=== PATIENT | female | born 1980 ===

== ENCOUNTER 2017-02-09 18:12 | Inpatient (IN) | payer MEDICAID, OTHER ==
--- NOTE | 2017-02-09 19:40 | ED PDOC ---
Arrival/HPI - General Chief Complaint: Altered Mental Status Time Seen by Provider: 02/09/17 18:23 Historian: Family - History of Present Illness Narrative History of Present Illness (Text): 02/09/17 19:44 A 36 year old female, morbidly obese, whose past medical history includes diabetes, presents to the emergency department complaining of coughing blood since yesterday. Patient's family reports she has been coughing up clots of blood, abdominal pain, discomfort under breast, and has some visual changes. Patient has a history of abdominal surgery 5 years ago. Family reports patient has been less verbal and pale since last night. Patient is uncooperative, not verbal when answering questions, with eyes closed. Patient is a smoker. PMD: Dr. Shine Time/Duration: 24 hours Symptom Onset: Sudden Symptom Course: Unchanged Activities at Onset: Rest Context: Home Past Medical History - Provider Review Nursing Documentation Reviewed: Yes - Infectious Disease Hx of Infectious Diseases: None - Tetanus Immunization Tetanus Immunization: Unknown - Reproductive Menopause: No - Cardiac Hx Cardiac Disorders: Yes Hx Hypertension: Yes - Pulmonary Hx Respiratory Disorders: No - Neurological Hx Neurological Disorder: No - HEENT Hx HEENT Disorder: No - Renal Hx Renal Disorder: No - Endocrine/Metabolic Hx Endocrine Disorders: No - Hematological/Oncological Hx Blood Disorders: Yes - Integumentary Hx Dermatological Disorder: No - Musculoskeletal/Rheumatological Hx Musculoskeletal Disorders: No - Gastrointestinal Hx Gastrointestinal Disorders: No - Genitourinary/Gynecological Hx Genitourinary Disorders: No - Psychiatric Hx Psychophysiologic Disorder: Yes Hx Bipolar Disorder: Yes Hx Depression: Yes Hx Substance Use: Yes - Surgical History Hx Section: Yes - Anesthesia Hx Anesthesia: Yes Hx Anesthesia Reactions: No Hx Malignant Hyperthermia: No - Suicidal Assessment Feels Threatened In Home Enviroment: No Family/Social History - Physician Review Nursing Documentation Reviewed: Yes Family/Social History: No Known Family HX Smoking Status: Heavy Smoker > 10 Cigarettes Daily Hx Alcohol Use: No Hx Substance Use: Yes Substance used: snorts heroin Hx Substance Use Treatment: Yes (methodone) Allergies/Home Meds Allergies/Adverse Reactions: Allergies No Known Allergies Allergy (Verified 09/04/15 14:54) Home Medications: Home Meds Medication Instructions Recorded Confirmed Ritonavir [Norvir] 100 mg PO DAILY 10/07/14 02/09/17 Amitriptyline [Elavil] 150 mg PO HS 08/17/15 02/09/17 ALPRAZolam [Xanax] 1 mg PO TID 02/09/17 02/09/17 ALPRAZolam [Xanax] 1.5 mg PO HS 02/09/17 02/09/17 Amitriptyline [Elavil] 50 mg PO DAILY 02/09/17 02/09/17 Darunavir [Prezista] 800 mg PO DAILY 02/09/17 02/09/17 Dolutegravir Sodium [Tivicay] 50 mg PO DAILY 02/09/17 02/09/17 Emtricitabine/Tenofov Alafenam 1 each PO DAILY 02/09/17 02/09/17 [Descovy 200-25 mg Tablet] Methadone [Methadose] 80 mg PO DAILY 02/09/17 02/09/17 Review of Systems - Physician Review All systems were reviewed & negative as marked: Yes - Review of Systems Eyes: Vision Changes Respiratory: Cough (blood) Gastrointestinal: Abdominal Pain Physical Exam - Physical Exam Physical Exam Limitations: Uncooperative (non verbal; responds to questions only with grunts and groans) Vital Signs Reviewed: Yes Vital Signs Temp Pulse Resp BP Pulse Ox 02/09/17 21:39 101.4 F H 02/09/17 20:41 101.4 F H 02/09/17 19:09 109 H 16 111/66 97 02/09/17 18:41 99.3 F 107 H 24 83/62 L 95 Temperature: Afebrile Blood Pressure: Hypotensive Pulse: Tachycardic Respiratory Rate: Normal Appearance: Positive for: Non-Toxic, Comfortable, Other (morbidly obese, lethargic to stimuli) Pain Distress: None Mental Status: Positive for: Lethargic - Systems Exam Head: Present: Atraumatic, Normocephalic Pupils: Present: PERRL Respiratory/Chest: Present: Rhonchi (coarse), Other (breathing shallow). No: Respiratory Distress, Accessory Muscle Use Cardiovascular: Present: Normal S1, S2 (accelerated) Abdomen: Present: Tenderness, Other (obese, nontender, no rebound, no guarding) Upper Extremity: Present: Normal Inspection, Normal ROM, Other (peripheral pulses 2+). No: Cyanosis, Edema Lower Extremity: Present: Normal Inspection, Normal ROM. No: Edema Skin: Present: Warm, Dry. No: Rashes Medical Decision Making ED Course and Treatment: 02/09/17 19:37 Impression: A 36 year old female with bloody cough and abdominal pain. Plan: -- EKG -- chest xray -- labs -- Urinalysis -- Reassess and disposition Prior Visits: Notes and results from previous visits were reviewed. Patient was last seen in the emergency department on 09/04/15 for suture removal. Progress Notes: EKG: Ordered, reviewed, and independently interpreted the EKG. Rate : 106 BPM Rhythm : sinus tachycardic Interpretation : Normal intervals, no ectopy appreciated, ST segments within normal limits Comparison : No previous EKG for comparison. 02/09/17 21:09 Reviewed patient's lab, which shows leukocytosis and infiltrate on chest xray, low grade fever. Likely community acquired pneumonia. In addition, patient has new onset renal failure when compared with renal function of last year. Will treat for pneumonia and treat with IV fluids, antibiotics initiated in emergency department. Given patient's overall condition, we will have an ICU evaluation. - Lab Interpretations Lab Results: 02/09/17 19:50 02/09/17 19:50 Lab Results 02/09/17 21:11: Urine Color Yellow, Urine Appearance Sl cloudy, Urine pH 6.0, Ur Specific [place] 1.015, Urine Protein 30 H, Urine Glucose (UA) Negative, Urine Ketones Negative, Urine Blood Moderate H, Urine Nitrate Negative, Urine Bilirubin Negative, Urine Urobilinogen 0.2, Ur Leukocyte Esterase Large H, Urine RBC 5 - 10, Urine WBC 25 - 30, Ur Epithelial Cells 1 - 3, Urine Bacteria Many 02/09/17 21:11: Urine Opiates Screen Negative, Urine Methadone Screen Positive H , Ur Barbiturates Screen Negative, Ur Phencyclidine Scrn Negative, Ur Amphetamines Screen Negative, U Benzodiazepines Scrn Positive, U Oth Cocaine Metabols Negative, U Cannabinoids Screen Negative 02/09/17 21:09: pCO2 38, pO2 73.0 L, HCO3 21.5, ABG pH 7.36, ABG Total CO2 22.7 , ABG O2 Saturation 97.1, ABG O2 Content 12.0 L, ABG Base Excess -3.6 L, ABG Hemoglobin 9.2 L, ABG Carboxyhemoglobin 4.5 H, POC ABG HHb (Measured) 2.7, ABG Methemoglobin 0.8, ABG O2 Capacity 12.4 L, Hgb O2 Saturation 91.9 L, FiO2 28.0 02/09/17 19:50: D-Dimer, Quantitative 800 H 02/09/17 19:50: Sodium 132, Chloride 96 L, Potassium 4.5, Carbon Dioxide 25, Anion Gap 16, BUN 53 H, Creatinine 4.3 H, Est GFR ( Amer) 14, Est GFR ( Non-Af Amer) 12, Random Glucose 104, Calcium 8.6, Total Bilirubin 1.0, AST 37 H , ALT 19, Alkaline Phosphatase 101, Lactate Dehydrogenase 541, Total Creatine Kinase 419 H, CK-MB (CK-2) 9.9 H, CK-MB (CK-2) % 2.4 L, Troponin I < 0.01, NT- Pro-B Natriuret Pep 7020 H, Total Protein 8.9 H, Albumin 3.8, Globulin 5.1, Albumin/Globulin Ratio 0.7 L 02/09/17 19:50: pO2 28 L, VBG pH 7.25 L, VBG pCO2 58.0, VBG HCO3 25.4, VBG Total CO2 27.2, VBG O2 Sat (Calc) 53.5, VBG Base Excess -2.8 L, VBG Potassium 4.3, Sodium 131.0 L, Chloride 100.0, Glucose 98, Lactate 1.4, FiO2 21.0, Venous Blood Potassium 4.3 02/09/17 19:50: WBC 19.1 H D, RBC 3.36 L, Hgb 9.7 L, Hct 30.0 L, MCV 89.3, MCH 28.9, MCHC 32.3, RDW 15.1 H, Plt Count 127, MPV 12.1 H, Gran % 86.9 H, Lymph % ( Auto) 6.7 L, [place] % (Auto) 6.2 H, Eos % (Auto) 0.1 L, Baso % (Auto) 0.1, Gran # 16.58 H, Lymph # 1.3, [place] # 1.2 H, Eos # 0.0, Baso # 0.01 I have reviewed the lab results: Yes - RAD Interpretation Radiology Orders: 02/09/17 19:07 CHEST PORTABLE [RAD] Stat - EKG Interpretation Interpreted by ED Physician: Yes Type: 12 lead EKG - Medication Orders Current Medication Orders: Acetaminophen (Tylenol 325mg Tab) 650 mg PO Q6H PRN PRN Reason: Fever >100.4 F Heparin Sodium (Porcine) (Heparin) 5,000 units SC Q8 ROXI PRN Reason: Protocol Ceftriaxone Sodium (Rocephin 1 Gram Ivpb) 1 gm in 100 mls @ 100 mls/hr IVPB DAILY ROXI PRN Reason: Protocol Vancomycin HCl (Vancomycin 500mg In Ns) 500 mg in 100 mls @ 200 mls/hr IVPB STAT STA PRN Reason: Protocol Stop: 02/09/17 23:04 Sodium Chloride (Sodium Chloride 0.9%) 1,000 mls @ 100 mls/hr IV .Q10H ROXI Discontinued Medications Acetaminophen (Tylenol 325mg Tab) 975 mg PO STAT STA Stop: 02/09/17 21:18 Last Admin: 02/09/17 21:39 Dose: 975 mg MAR Pain/Vitals Document 02/09/17 21:39 MR (Rec: 02/09/17 21:40 MR [id number]) Pain Reassessment Is This A Pain ReAssessment? No Sleep Is patient sleeping during reassessment? No Vitals Temperature (97.6 F-99.6 F) 101.4 F Temperature Source Oral Albuterol Sulfate (Albuterol 0.083% Inhal [place]rina (2.5 Mg/3 Ml) Ud) 7.5 mg INH STAT STA Stop: 02/09/17 22:19 Ceftriaxone Sodium (Rocephin 2 Gm Ivpb) 2 gm in 100 mls @ 100 mls/hr IVPB STAT STA PRN Reason: Protocol Stop: 02/09/17 22:12 Last Admin: 02/09/17 22:16 Dose: 100 mls/hr eMAR Start Stop Document 02/09/17 22:16 MR (Rec: 02/09/17 22:16 MR [id number]) Intravenous Solution Start Date 02/09/17 Start Time 22:16 End Date 02/09/17 End time 23:16 Total Infusion Time 60 - Scribe Statement The provider has reviewed the documentation as recorded by the Jimibsuzie Corona Provider Scribe Attestation: All medical record entries made by the Scribe were at my direction and personally dictated by me. I have reviewed the chart and agree that the record accurately reflects my personal performance of the history, physical exam, medical decision making, and the department course for this patient. I have also personally directed, reviewed, and agree with the discharge instructions and disposition. Disposition/Present on Arrival - Present on Arrival Any Indicators Present on Arrival: No History of DVT/PE: No History of Uncontrolled Diabetes: No Urinary Catheter: No History of Decub. Ulcer: No History Surgical Site Infection Following: None - Disposition Have Diagnosis and Disposition been Completed?: Yes Diagnosis: Pneumonia, Renal failure Disposition: HOSPITALIZED Disposition Time: 21:31 Patient Plan: Admission Patient Problems: Current Active Problems Problem Status Onset Pneumonia Acute Renal failure Acute Condition: SERIOUS
[2017-02-09 20:24] LABS: BASO # 0.01 K/mm3 (0.0-2.0); BASO % 0.1 % (0.0-3.0); EOS % 0.1 % (1.5-5.0); GRAN # 16.58 (1.4-6.5); GRAN % 86.9 % (50.0-68.0); LYMPH # 1.3 (1.2-3.4); LYMPH % 6.7 % (22.0-35.0); MEAN CELL VOLUME 89.3 fl (80.0-105.0); MEAN CORPUSCULAR HEMOGLOBIN 28.9 pg (25.0-35.0); MEAN CORPUSCULAR HGB CONC 32.3 g/dl (31.0-37.0); MEAN PLATELET VOLUME 12.1 fl (7.0-11.0); MONO # 1.2 (0.1-0.6); MONO % 6.2 % (1.0-6.0); RED CELL DISTRIBUTION WIDTH 15.1 % (11.5-14.5); WHITE BLOOD COUNT 19.1 10^3/ul (4.5-11.0)
[2017-02-09 20:28] LABS: VENOUS BLOOD GAS BASE EXCESS -2.8 mmol/L (0.0-2.0); VENOUS BLOOD PH 7.25 (7.32-7.43)
[2017-02-09 20:49] LABS: ALB/GLOB RATIO 0.7 (1.1-1.8); ALKALINE PHOSPHATASE 101 U/L (38-126); ALT/SGPT 19 U/L (7-56); AST/SGOT 37 U/L (14-36); BLOOD UREA NITROGEN 53 mg/dL (7-21); CALCIUM 8.6 mg/dL (8.4-10.5); CARBON DIOXIDE 25 mmol/L (21-33); CHLORIDE 96 mmol/L (98-107); GFR AFRICAN-AMERICAN 14; GLUCOSE,RANDOM 104 mg/dL (70-110); POTASSIUM 4.5 mmol/L (3.6-5.0); SODIUM 132 mmol/L (132-148); TOTAL PROTEIN 8.9 g/dL (5.8-8.3)
[2017-02-09 20:53] LABS: TROPONIN I < 0.01 ng/mL
[2017-02-09 21:12] LABS: ARTERIAL BLOOD GAS HCO3 21.5 mmol/L (21-28); ARTERIAL BLOOD GAS O2 CAPACITY 12.4 mL/dl (16-24); ARTERIAL BLOOD GAS PH 7.36 (7.35-7.45); ARTERIAL BLOOD HGB O2 SAT 91.9 % (95.0-98.0); CARBOXYHEMOGLOBIN 4.5 % (0.5-1.5); HHB 2.7 % (0-5); METHEMOGLOBIN 0.8 % (0.0-3.0)
[2017-02-09] MEDS ORDERED: cefTRIAXone 2 GM IN NS 2 GM/100 ML BAG IVPB STA (21:13)
[2017-02-09 21:41] LABS: URINE BILIRUBIN NEGATIVE (NEGATIVE); URINE BLOOD MODERATE (NEGATIVE); URINE GLUCOSE (UA) NEGATIVE (NEGATIVE); URINE KETONE NEGATIVE (NEGATIVE); URINE LEUKOCYTE ESTERASE LARGE Leu/uL (NEGATIVE); URINE PROTEIN 30 mg/dL (<30 mg/dL); URINE UROBILINOGEN 0.2 E.U./dL (<1 E.U./dL)
[2017-02-09 21:43] LABS: URINE APPEARANCE SL CLOUDY (CLEAR); URINE COLOR YELLOW (YELLOW)
[2017-02-09 22:00] LABS: URINE BACTERIA MANY (NEG); URINE WBC 25 - 30 /hpf (0-6)
[2017-02-09] MEDS ORDERED: Albuterol 0.083% Inhal Sol (2.5 mg/3 mL) UD INH STA (22:18)
[2017-02-09] MEDS ORDERED: Vancomycin 500mg in NS 500 MG/100 ML BAG IVPB STA (22:35)
--- NOTE | 2017-02-09 22:57 | CP.PCM.HP ---
<Lizzy Gallego - Last Filed: 02/10/17 03:11> History of Present Illness - History of Present Illness History of Present Illness: PGY-2 H&P for hospitalist service 36 yo female with PMH of HIV, drug abuse, diabetes presents to ED with SOB and coughing blood since yesterday. Patient is mildly confused but is able to answer questions. Per patient she has had a cough for past few months however yesterday she began coughing up blood. She also reports left sided chest wall, flank and back pain. She states the pain is worse with inspiration. Patient states that she snorted 3-4 bags of belem today. She states that she is on methadone but currently can not recall the name of the clinic. Patient has history of HIV, she states that she is complaint with medications, she does not know viral load of CD4 count. Patient is a smoker. PMH: HIV, drug abuse, diabetes PSH: abdominal surgery 5 years ago allergy: NKDA Social history: smokes about 1ppd, denies current alcohol use, admits to current belem use meds: reviewed refer to MAR Present on Admission - Present on Admission Any Indicators Present on Admission: No Review of Systems - Review of Systems Systems not reviewed;Unavailable: Altered Mental Status - Constitutional Constitutional: Chills, Fever. absent: Headache - Cardiovascular Cardiovascular: Chest Pain, Dyspnea. absent: Leg Edema, Palpitations, Pedal Edema - Respiratory Respiratory: Cough, Dyspnea, Hemoptysis, Pain on Inspiration - Gastrointestinal Gastrointestinal: Nausea. absent: Abdominal Pain, Constipation, Diarrhea, Vomiting - Genitourinary Genitourinary: absent: Dysuria - Musculoskeletal Musculoskeletal: Back Pain. absent: Neck Pain - Hematologic/Lymphatic Hematologic: absent: Easy Bleeding, Easy Bruising Past Patient History - Infectious Disease Hx of Infectious Diseases: None - Tetanus Immunizations Tetanus Immunization: Unknown - Past Medical History & Family History Past Medical History?: Yes - Past Social History Smoking Status: Heavy Smoker > 10 Cigarettes Daily - CARDIAC Hx Cardiac Disorders: Yes Hx Hypertension: Yes - PULMONARY Hx Respiratory Disorders: No - NEUROLOGICAL Hx Neurological Disorder: No - HEENT Hx HEENT Problems: No - RENAL Hx Chronic Kidney Disease: No - ENDOCRINE/METABOLIC Hx Endocrine Disorders: No - HEMATOLOGICAL/ONCOLOGICAL Hx Blood Disorders: Yes - INTEGUMENTARY Hx Dermatological Problems: No - MUSCULOSKELETAL/RHEUMATOLOGICAL Hx Musculoskeletal Disorders: No - GASTROINTESTINAL Hx Gastrointestinal Disorders: No - GENITOURINARY/GYNECOLOGICAL Hx Genitourinary Disorders: No - PSYCHIATRIC Hx Psychophysiologic Disorder: Yes Hx Bipolar Disorder: Yes Hx Depression: Yes Hx Substance Use: Yes - SURGICAL HISTORY Hx Section: Yes - ANESTHESIA Hx Anesthesia: Yes Hx Anesthesia Reactions: No Hx Malignant Hyperthermia: No Meds Allergies/Adverse Reactions: Allergies Allergy/AdvReac Type Severity Reaction Status Date / Time No Known Allergies Allergy Verified 09/04/15 14:54 Results - Vital Signs Recent Vital Signs: Last Vital Signs Temp 101.4 F H 02/09/17 21:39 Pulse 109 H 02/09/17 19:09 Resp 16 02/09/17 19:09 BP 111/66 02/09/17 19:09 Pulse Ox 97 02/09/17 19:09 - Labs Result Diagrams: 02/09/17 19:50 02/09/17 19:50 Assessment & Plan - Assessment and Plan (Free Text) Assessment: 36 yo female with PMH of HIV, drug abuse, diabetes presents to ED with hemoptysis, she was found to have sepsis due to UTI and PNA, and MEJIA. Plan: Neuro - patient is confused, alert and oriented x 2 - will order ammonia levels to r/o hepatic encephalopathy - neuro checks q4h cardio - blood pressure is stable, tachycardia - negative troponin - elevated BNP - will order echo for the AM Pulm - cxr shows left lower lobe infiltrate, possible PNA vs pcp - high resolution CT of chest - elevated d-dimer, unable to get CTA due to renal function will order v/q scan for AM - abg shows hypoxia - saturating will on 2 L O2 - antibiotic vanco 1 dose and ceftriaxone - consider broncoscope GI - protonix for GI prophalaxis - aspiration precautions nephro - elevated creatinine above baseline - possibly due to pre-renal vs intrinsic - urine sodium, potassium, osmolality - IVF NS @100, will be conservative with fluid due to elevated BNP - nephrology consulted ID - sepsis due to UTI and pna, will have high suspicion for pcp due to HIV status - h/o of HIV - fever in ED, Tylenol given, continue Tylenol prn for fever - lactic acid 1.4, low - procalcitonin pending - urine legionella, m. pneumonia, strep pneumonia - blood, urine and sputum cultures - IVF NS @100 - abx: 1 dose vanco, ceftriaxone - will hold HIV meds - CD4 and viral load ordered - ID consulted heme - anemic, most likely multi factorial - stable, will continue to monitor psych - will hold xanax - hold methadone until confirmed with clinic prophylaxis GI- protonix DVT- heparin <Viridiana,Constantine Q - Last Filed: 02/10/17 07:18> Results - Vital Signs Recent Vital Signs: Last Vital Signs Temp 99.4 F 02/10/17 04:00 Pulse 102 H 02/10/17 06:00 Resp 25 H 02/10/17 06:00 BP 66/33 L 02/10/17 06:00 Pulse Ox 96 02/10/17 06:00 - Labs Result Diagrams: 02/10/17 05:15 02/10/17 05:15 Labs: Laboratory Results - last 24 hr 02/09/17 02/09/17 02/09/17 22:40 22:40 22:55 WBC RBC Hgb Hct MCV MCH MCHC RDW Plt Count MPV Gran % Lymph % (Auto) [place] % (Auto) Eos % (Auto) Baso % (Auto) Gran # Lymph # [place] # Eos # Baso # ESR 125 H Sodium Potassium Chloride Carbon Dioxide Anion Gap BUN Creatinine Est GFR ( Amer) Est GFR (Non-Af Amer) Random Glucose Calcium Total Bilirubin AST ALT Alkaline Phosphatase Ammonia < 9 L Lactate Dehydrogenase 569 Total Protein Albumin Globulin Albumin/Globulin Ratio Ur Random Sodium Ur Random Potassium 02/10/17 02/10/17 02/10/17 03:30 05:15 05:15 WBC 13.6 H D RBC 2.86 L Hgb 8.1 L Hct 25.5 L MCV 89.2 MCH 28.3 MCHC 31.8 RDW 14.9 H Plt Count 114 L MPV 11.8 H Gran % 83.8 H Lymph % (Auto) 6.9 L [place] % (Auto) 9.1 H Eos % (Auto) 0.1 L Baso % (Auto) 0.1 Gran # 11.38 H Lymph # 0.9 L [place] # 1.2 H Eos # 0.0 Baso # 0.01 ESR Sodium 135 Potassium 3.5 L Chloride 101 Carbon Dioxide 21 Anion Gap 16 BUN 57 H Creatinine 4.8 H Est GFR ( Amer) 12 Est GFR (Non-Af Amer) 10 Random Glucose 94 Calcium 7.9 L Total Bilirubin 0.8 AST 30 ALT 25 Alkaline Phosphatase 90 Ammonia Lactate Dehydrogenase Total Protein 7.8 Albumin 3.2 Globulin 4.5 Albumin/Globulin Ratio 0.7 L Ur Random Sodium 14 Ur Random Potassium 55.9 Attending/Attestation - Attestation I have personally seen and examined this patient.: Yes I have fully participated in the care of the patient.: Yes I have reviewed all pertinent clinical information: Yes Notes (Text): 02/10/17 07:02 I agree with the above mentioned note by the resident with the addition/ exception of the followin36 y/o female with PMHx as listed above presented to the ED with fever, chills, abdominal and left sided chest discomfort over the past few days. Patient has also been having hemoptysis described as coughing up large blood clots over the past few days. Patient was admitted to the ICU for severe sepsis secondary to acute cystitis + CAP in the setting of an immunocompromised patient with HIV. She was started on IV Abx and IVF hydration. Early this AM the patient's SBP dropped and she was started on IVF hydration. Likely converting to septic shock at this time. Peripheral levophed started and a central line will be placed for continuation of vasopressor support. all labs and images reviewed thus far Case discussed with Dr. Montoya in the ED Total time of care: 55minutes
[2017-02-09] MEDS: Sodium Chloride 0.9% 1,000 ML IV SCH (23:03)
--- NOTE | 2017-02-10 00:49 | CT ---
EXAM: CT Chest Without Intravenous Contrast EXAM DATE/TIME: 02/09/2017 10:32 PM CLINICAL HISTORY: 36 years old, female; Signs and symptoms; Cough and shortness of breath; Symptoms not specified; Additional info: SOB, hemoptysis TECHNIQUE: Axial computed tomography images of the chest without intravenous contrast. All CT scans at this facility use one or more dose reduction techniques, viz.: automated exposure control; ma/kV adjustment per patient size (including targeted exams where dose is matched to indication; i.e. head); or iterative reconstruction technique. MIP reconstructed images were created and reviewed. Coronal and sagittal reformatted images were created and reviewed. COMPARISON: There are no prior studies for comparison. FINDINGS: Artifacts: Motion artifact degrades image quality. Streak artifact degrades image quality. Lungs and pleural spaces: Trachea and main bronchi are patent. There is partial consolidation of the left upper lobe with air bronchograms. There is patchy airspace disease in the right upper lobe. There is minimal airspace disease in the left base. There are atelectatic changes bilaterally. There are no definite effusions. Heart and vasculature: Heart size is accentuated by shallow inspiration.There is trace fluid in pericardial recesses.Aorta and main pulmonary artery are normal in caliber. Mediastinum: There are multiple mildly enlarged mediastinal nodes.Naomi are not optimally evaluated without contrast material. The esophagus is unremarkable. Thyroid: Thyroid is not optimally demonstrated. Bones/joints: There are no acute osseous abnormalities. Soft tissues: unremarkable Lymph nodes: There shotty axillary nodes bilaterally. Upper abdomen: There are no acute abnormalities in the visualized portion of the abdomen. The spleen is enlarged. Renal contours are somewhat lobular. There is a hyperdense left upper pole lesion. There are small nonobstructing right renal stones.Pancreas is mildly atrophic. IMPRESSION: Left upper lobe pneumonia with minimal airspace disease in the left lower lobe right upper lobe; mediastinal adenopathy difficult to further characterize; splenomegaly Additional findings as described above.
[2017-02-10 01:12] VITALS: BMI 57.4
[2017-02-10] MEDS: Pantoprazole 40 mg EC Tab PO SCH (05:58)
[2017-02-10] MEDS ORDERED: Sodium Chloride 0.9% 500 ML IV STA ×2 (06:08→06:10)
[2017-02-10 06:18] LABS: BASO # 0.01 K/mm3 (0.0-2.0); BASO % 0.1 % (0.0-3.0); EOS % 0.1 % (1.5-5.0); GRAN # 11.38 (1.4-6.5); GRAN % 83.8 % (50.0-68.0); HEMATOCRIT 25.5 % (36.0-48.0); LYMPH # 0.9 (1.2-3.4); LYMPH % 6.9 % (22.0-35.0); MEAN CELL VOLUME 89.2 fl (80.0-105.0); MEAN CORPUSCULAR HEMOGLOBIN 28.3 pg (25.0-35.0); MEAN CORPUSCULAR HGB CONC 31.8 g/dl (31.0-37.0); MEAN PLATELET VOLUME 11.8 fl (7.0-11.0); MONO # 1.2 (0.1-0.6); MONO % 9.1 % (1.0-6.0); RED CELL DISTRIBUTION WIDTH 14.9 % (11.5-14.5); WHITE BLOOD COUNT 13.6 10^3/ul (4.5-11.0)
[2017-02-10 06:37] LABS: ALB/GLOB RATIO 0.7 (1.1-1.8); BILIRUBIN,TOTAL 0.8 mg/dL (0.2-1.3); CALCIUM 7.9 mg/dL (8.4-10.5); POTASSIUM 3.5 mmol/L (3.6-5.0); TOTAL PROTEIN 7.8 g/dL (5.8-8.3)
[2017-02-10] MEDS: NOREPINEPHRINE BIT/0.9 % NACL 4 MG/250 ML BAG IV PRN ×2 (06:45→11:01)
[2017-02-10 07:56] LABS: VENOUS BLOOD PH 7.29 (7.32-7.43)
[2017-02-10] MEDS: Insulin Reg-MEDIUM-Coverage SC SCH ×3 (08:10→17:25)
[2017-02-10] MEDS ORDERED: Vasopressin 20 UNITS in Dextrose 5% In Water 100 ML IV SCH (08:15)
[2017-02-10] MEDS ORDERED: Sodium Chloride 0.9% 1,000 ML IV STA (08:16)
[2017-02-10] MEDS ORDERED: Etomidate 20 mg/10ml Inj IV ONE (08:34)
[2017-02-10] MEDS ORDERED: Fentanyl 1000mcg/100ml NS 1,000 MCG/100 ML BAG IV PRN (08:34)
[2017-02-10] MEDS ORDERED: Midazolam 5 MG/ML IVP PRN (08:35)
[2017-02-10] MEDS ORDERED: Rocuronium 10 mg/ml (5 ml) ONE (08:36)
[2017-02-10 08:37] LABS: ARTERIAL BLOOD GAS HCO3 20.1 mmol/L (21-28); ARTERIAL BLOOD GAS PH 7.32 (7.35-7.45)
--- NOTE | 2017-02-10 08:56 | RAD ---
HISTORY: central line placement COMPARISON: 02/09/2017 FINDINGS: LUNGS: No active pulmonary disease. PLEURA: No significant pleural effusion identified, no pneumothorax apparent. CARDIOVASCULAR: New right IJ triple-lumen central venous catheter terminates in the region of the SVC. OSSEOUS STRUCTURES: No significant abnormalities. VISUALIZED UPPER ABDOMEN: Normal. OTHER FINDINGS: None. IMPRESSION: New right IJ central venous catheter. No pneumothorax. No acute infiltrate.
[2017-02-10] MEDS: Sodium Chloride 0.9% 1,000 ML IV SCH (09:00)
--- NOTE | 2017-02-10 09:24 | CP.PCM.PN ---
<Madison Dinh - Last Filed: 02/10/17 11:19> Subjective - Date & Time of Evaluation Date of Evaluation: 02/10/17 Time of Evaluation: 09:10 - Subjective Subjective: Progress note for Hospitalist service- Dr Zuniga. Patient continued to experience shortness of breath in the ICU this morning, at some point O2 saturation was dropping to below 80s, and patient was difficult to arouse. Patient was going to be intubated, however the saturation improved once patient was awakened, with nasal canulla. Patient appears anxious. Requested we communicate with her partner Mrs Jasiel Morales, whom we spoke to at [phone] and updated her on patient's current status and the fact that patient will need to be intubated if she doesn't improve with nasal cannula. Attempted to reach patient's PMD Dr Shine at and [phone], was told Dr Shine is not available on weekends. Patient stated her HIV is managed by a Dr Vidal Varma, unable to locate him on the search engine. Faxed over the request for methadone dosage information to [phone] awaiting response. Objective - Vital Signs/Intake and Output Vital Signs (last 24 hours): Temp Pulse Resp BP Pulse Ox 99.4 F 102 H 25 H 116/49 L 96 02/10/17 04:00 02/10/17 06:00 02/10/17 06:00 02/10/17 09:00 02/10/17 06:00 Intake and Output: 02/10/17 02/10/17 06:59 18:59 Intake Total 2100 Balance 2100 - Medications Medications: Current Medications Acetaminophen (Tylenol 325mg Tab) 650 mg PO Q6H PRN PRN Reason: Fever >100.4 F Heparin Sodium (Porcine) (Heparin) 5,000 units SC Q8 ROXI PRN Reason: Protocol Last Admin: 02/10/17 05:57 Dose: 5,000 units Hydrocortisone Sodium Succinate (Solu-Cortef) 50 mg IVP Q6H [facility] Last Admin: 02/10/17 08:24 Dose: 50 mg Ceftriaxone Sodium (Rocephin 1 Gram Ivpb) 1 gm in 100 mls @ 100 mls/hr IVPB DAILY ROXI PRN Reason: Protocol Sodium Chloride (Sodium Chloride 0.9%) 1,000 mls @ 100 mls/hr IV .Q10H [facility] Last Admin: 02/10/17 09:00 Dose: 100 mls/hr NOREPINEPHRINE BIT/0.9 % NACL (Levophed 4 Mg/ 250 Ml Ns Premixed) 4 mg in 250 mls @ 15 mls/hr IV .[id number] PRN; Protocol; 4 MCG/MIN PRN Reason: TITRATE PER MD ORDER Last Admin: 02/10/17 06:45 Dose: 10 mcg/min, 37.5 mls/hr Azithromycin (Zithromax 500mg In Ns) 500 mg in 250 mls @ 167 mls/hr IVPB DAILY ROXI PRN Reason: Protocol Vasopressin 20 units/ Dextrose 101 mls @ 9.09 mls/hr IV .Q11H7M ROXI; 0.03 U/MIN PRN Reason: Protocol Last Admin: 02/10/17 09:00 Dose: 9.09 mls/hr Fentanyl Citrate (Fentanyl Citrate/Sodium Chloride 1 Mg/100 Ml) 1,000 mcg in 100 mls @ 7.5 mls/hr IV .[id number] PRN; Protocol; 75 MCG/HR PRN Reason: TITRATE PER MD ORDER Insulin Human Regular (Humulin R Med) 0 units SC ACHS ROXI PRN Reason: Protocol Last Admin: 02/10/17 08:10 Dose: Not Given Midazolam HCl (Versed Inj) 5 mg IVP Q4H PRN PRN Reason: Agitation Pantoprazole Sodium (Protonix Ec Tab) 40 mg PO 0600 [facility] Last Admin: 02/10/17 05:58 Dose: 40 mg - Labs Labs: 02/10/17 05:15 02/10/17 05:15 - Constitutional Appears: In Acute Distress, Older Than Stated Age, Chronically Ill - Head Exam Head Exam: ATRAUMATIC, NORMAL INSPECTION, NORMOCEPHALIC - Eye Exam Eye Exam: EOMI, Normal appearance, PERRL Pupil Exam: NORMAL ACCOMODATION - ENT Exam ENT Exam: Mucous Membranes Dry - Neck Exam Neck Exam: Normal Inspection - Respiratory Exam Respiratory Exam: Decreased Breath Sounds (in the left lower lobes), Prolonged Expiratory Phase, Rales, Rhonchi, Respiratory Distress. absent: Wheezes, Stridor - Cardiovascular Exam Cardiovascular Exam: Tachycardia, REGULAR RHYTHM, RRR, +S1, +S2. absent: Gallop , JVD, Rubs, Murmur - GI/Abdominal Exam GI & Abdominal Exam: Soft, Normal Bowel Sounds. absent: Distended, Firm, Guarding, Rigid, Tenderness Additional comments: Obese abdomen, old surgical scar intact. - Extremities Exam Extremities Exam: Normal Inspection. absent: Pedal Edema, Tenderness - Neurological Exam Neurological Exam: Alert, Awake, Oriented x3 - Psychiatric Exam Psychiatric exam: Anxious - Skin Skin Exam: Dry, Intact, Warm Assessment and Plan - Assessment and Plan (Free Text) Assessment: Patient is a 36 y/o F with PMH of HIV, drug abuse (on methadone), NIDDM2, morbidly obese whom presented with shortness of breath and was found to have sepsis Sock due to pneumonia superimposed with UTI with multi organ dysfunction. Currently in ICU for monitoring and management. Plan: 1) Septic shock due to pneumonia r/o pcp, and UTI. - S/p 3 litters of NS - now on levophed drip to maintain MAP above 65. - ID consulted - will continue with Rocephin, s/p a dose of vanco. Patient was started on Zithromax as well. - ma cultures were sent, including influenza, mycoplasma and urine legionella - Leukocytosis trending down, and patient was febrile with tmax of 101.4. 2) Hypoxemic respiratory distress due to pneumonia versus pcp. - Less likely PE, although D-dimer was elevated, most likely due to parenchymal lung disease/pna - Pro-bnp was also elevated, pending cardiac echo to r/o chf. - Will start bronchodilators. - Nasal cannula to maintain O2 saturation above 90%. - Patient will likely need to be intubated if she remains hypoxemic with nasal cannula, and her mental status worsens. - Head of bead above 35 degrees. 3) Normocytic anemia- likely dilution versus CKD versus anemia of chronic disease in the setting HIV versus sepsis. - No active bleeding noted - Will obtain anemia work up, and retic count - Will continue to monitor for now and transfuse if below 7, or continues to be hemodynamically unstable 4) Thrombocytopenia - likely due to sepsis/septic shock versus HIV status - No signs of active bleeding - will monitor for now 3) MEJIA - less likely post renal- patient is able to void. - R/o intrinsic, versus pre-renal in the setting of septic shock and HIV - urine lytes were sent - Strict I&Os. - Consider renal U/S - Nephrology consulted 4) Hypokalemia - will replete, and will obtain magnesium level 3) HIV with unknown status - CD4 count, viral loads were ordered, pending - Patient reported she is on Prezista/Decovy/Norvir therapy, however there's a concern for IRIS due to questionable compliance issues and current presentation. Unable to reach patient's HIV provider Vidal Varma. - ID consulted for help. 4) NIDDM - Continue with insulin sliding scale and fingersticks Q6 hrs. 5) H/o drug abuse - Consent sent to methadone clinic at [facility], phone # [phone] pending response. 6) Heparin for dvt prophylaxis, and protonix for gi prophylaxis. Patient seen, examined and case discussed with the attending. <Reji Jean - Last Filed: 02/10/17 17:07> Objective - Vital Signs/Intake and Output Vital Signs (last 24 hours): Temp Pulse Resp BP Pulse Ox 99.4 F 89 25 H 116/49 L 96 02/10/17 04:00 02/10/17 10:00 02/10/17 06:00 02/10/17 09:00 02/10/17 06:00 Intake and Output: 02/10/17 02/10/17 06:59 18:59 Intake Total 2100 344 Balance 2100 344 - Medications Medications: Current Medications Acetaminophen (Tylenol 325mg Tab) 650 mg PO Q6H PRN PRN Reason: Fever >100.4 F Albuterol/Ipratropium (Duoneb 3 Mg/0.5 Mg (3 Ml) Ud) 3 ml IH [id number] [facility] Last Admin: 02/10/17 13:35 Dose: 3 ml Albuterol/Ipratropium (Duoneb 3 Mg/0.5 Mg (3 Ml) Ud) 3 ml IH Q2H PRN PRN Reason: Shortness of Breath Heparin Sodium (Porcine) (Heparin) 5,000 units SC Q8 ROXI PRN Reason: Protocol Last Admin: 02/10/17 13:23 Dose: 5,000 units Hydrocortisone Sodium Succinate (Solu-Cortef) 50 mg IVP Q6H [facility] Last Admin: 02/10/17 13:23 Dose: 50 mg Ceftriaxone Sodium (Rocephin 1 Gram Ivpb) 1 gm in 100 mls @ 100 mls/hr IVPB DAILY ROXI PRN Reason: Protocol Last Admin: 02/10/17 09:34 Dose: 100 mls/hr Sodium Chloride (Sodium Chloride 0.9%) 1,000 mls @ 100 mls/hr IV .Q10H ROXI Last Admin: 02/10/17 09:00 Dose: 100 mls/hr NOREPINEPHRINE BIT/0.9 % NACL (Levophed 4 Mg/ 250 Ml Ns Premixed) 4 mg in 250 mls @ 15 mls/hr IV .[id number] PRN; Protocol; 4 MCG/MIN PRN Reason: TITRATE PER MD ORDER Last Titration: 02/10/17 14:00 Dose: 2 mcg/min, 7.5 mls/hr Azithromycin (Zithromax 500mg In Ns) 500 mg in 250 mls @ 167 mls/hr IVPB DAILY ROXI PRN Reason: Protocol Last Admin: 02/10/17 11:16 Dose: 167 mls/hr Vasopressin 20 units/ Dextrose 101 mls @ 9.09 mls/hr IV .Q11H7M ROXI; 0.03 U/MIN PRN Reason: Protocol Last Admin: 02/10/17 09:00 Dose: 9.09 mls/hr Insulin Human Regular (Humulin R Med) 0 units SC ACHS ROXI PRN Reason: Protocol Last Admin: 02/10/17 11:18 Dose: Not Given Midazolam HCl (Versed Inj) 5 mg IVP Q4H PRN PRN Reason: Agitation Pantoprazole Sodium (Protonix Ec Tab) 40 mg PO 0600 [facility] Last Admin: 02/10/17 05:58 Dose: 40 mg - Labs Labs: 02/10/17 05:15 02/10/17 05:15 Attending/Attestation - Attestation I have personally seen and examined this patient.: Yes I have fully participated in the care of the patient.: Yes I have reviewed all pertinent clinical information, including history, physical exam and plan: Yes Notes (Text): 02/10/17 17:01 Attending note; Patient seen and examined with resident in ICU. Patient is a 36-year-old female with PMH of HIV, drug abuse (on methadone), diabetes type 2, morbidly obese is admitted with shortness of breath and was found to have sepsis Shock due to pneumonia /superimposed with UTI with multi organ dysfunction. Pneumonia ;Patient was initially lethargic with significant respiratory distress. Slowly improving. Currently able to talk with some distress. Patient is willing to try oxygen nasal cannula and try to avoid intubation for now. Will monitor closely in ICU. CT chest consistent with left upper lobe and lower lobe pneumonia. Continue DuoNeb treatment. Continue IV Rocephin and Zithromax. ID evaluation requested. Does not know about CD4 count and viral load. Denies any history of PCP in the past. HIV; continue home medications. Anemia; iron studies ordered. Multifactorial etiologies suspected. Methadone dependency; will continue home dosage. Trying to confirm dosage for methadone clinic. Acute renal insufficiency; mostly secondary to hypotension related/prerenal. Monitor closely. Nephrology evaluation requested. Strict input and output ordered. The diagnosis and treatment options discussed with patient's partner aCrmen jasiel in detail today. 02/10/17 17:07
[2017-02-10] MEDS: cefTRIAXone 1 gm 1 GM/100 ML BAG IVPB SCH (09:34)
[2017-02-10 10:06] LABS: RETIC% 1.84 % (0.5-1.5)
[2017-02-10 10:14] LABS: MAGNESIUM 1.5 mg/dL (1.7-2.2)
[2017-02-10 10:22] LABS: IRON 18 ug/dL (45-180)
[2017-02-10] MEDS: Azithromycin 500MG/NS 250ml 500 MG/250 ML BAG IVPB SCH (11:16)
[2017-02-10] MEDS ORDERED: Albuterol-Ipratrop 3 mg / 0.5 (3 ml) UD IH PRN (11:17)
[2017-02-10] MEDS: Albuterol-Ipratrop 3 mg / 0.5 (3 ml) UD IH SCH ×2 (13:35→20:10)
[2017-02-10] MEDS ORDERED: Morphine 2 mg/ml ISec IVP ONE (15:52)
--- NOTE | 2017-02-10 16:56 | RAD ---
HISTORY: cough COMPARISON: 09/20/2014 FINDINGS: LUNGS: Large rounded opacity mid left lung, possibly pneumonia though cannot rule out neoplasm. There is hazy opacity at right lung base, possible pneumonia. PLEURA: No significant pleural effusion identified, no pneumothorax apparent. CARDIOVASCULAR: Normal. OSSEOUS STRUCTURES: No significant abnormalities. VISUALIZED UPPER ABDOMEN: Normal. OTHER FINDINGS: None. IMPRESSION: Large rounded opacity mid left lung. Possible pneumonia. Followup to clearing to exclude underlying neoplasm. Hazy opacity at right lung base. Possible pneumonia.
[2017-02-10 17:41] LABS: FOLATE 7.7 ng/mL
[2017-02-10] MEDS ORDERED: Magnesium Sulfate 2 GM in Sodium Chloride 0.9% 100 ML IVPB ONE (18:52)
--- NOTE | 2017-02-10 19:06 | CON ---
DATE: 02/10/2017HISTORY OF PRESENT ILLNESS: A 36-year-old lady, who is morbidly obese, history of diabetes, who presented at this time with some hemoptysis, shortness of breath, and cough. These symptoms were lasting for couple of days and were not getting better. Shortness of breath was also getting worse. Her dyspnea on exertion worsened. No fever. No chills. No sweats. No nausea. No vomiting. No diarrhea. Of note, the patient had abdominal surgery about 5 years ago. PAST MEDICAL HISTORY: HIV, depression, anxiety, and diabetes. SOCIAL HISTORY: The patient is an active smoker and also illicit drug abuse. FAMILY HISTORY: Noncontributory. HOME MEDICATIONS: Norvir, Elavil, Xanax, Prezista, dolutegravir, Descovy, and methadone 80 mg p.o. daily. REVIEW OF SYSTEMS: Review of 12-organ system other than mentioned in history of present illness is negative. ALLERGIES: NKDA. PHYSICAL EXAMINATION: VITAL SIGNS: The patient is on Levophed 20 mcg/minute, vasopressin 0.03 units per minute. Continues on stress dose steroids. Blood pressure 111/56, heart rate 109, oxygen saturation 97% on 1 L per minute, respiratory rate varies between 15 and 20. Bedside ultrasound revealed IVC diameter during inspiration 1.79 cm and during expiration 3.13 cm. Of note, the patient received 1 L of normal saline bolus today. HEENT: Head and neck atraumatic. LUNGS: Decreased breath sounds bilaterally. HEART: Regular rate witnessed. S1 and S2 normal. ABDOMEN: Soft, nontender, nondistended. MUSCULOSKELETAL: Obese. SKIN: Moist. PSYCHIATRIC: The patient is alert and oriented x3. She is a little bit less lethargic than in the morning. LABORATORY DATA: WBC 13.6 down from 19.1, hemoglobin 8.1, platelet count 114. Sodium 135, potassium 3.5, chloride 101, carbon dioxide 21, BUN 57, creatinine 4.8 up from 4.3 (the patient got about 250 mL urine output over the last 1 hour, and we are checking her urine output hourly). Glucose 94, AST 30, ALT 25. Ammonia level less than 9. Troponin less than 0.01. Pro-BNP 7020. Lactic acid 1.1 ABG is 7.32/39/73 on 4 L nasal cannula. U-tox screen positive for methadone, which is listed in her home meds. D-dimer is 800. Urine is positive for leukocytes esterase, but negative for nitrates. There is 5 to 10 rbc's, 25 to 30 wbc's, many bacteria. Chest CT showed dense consolidation with air bronchograms in the left upper lobe, mediastinal adenopathy which is difficult to truly characterized. Chest x-ray also significant for left consolidations/infiltrate. CURRENT MEDICATIONS: Tylenol p.r.n., heparin subcu, hydrocortisone 50 mg IV q.6, regular insulin sliding scale medium protocol, norepinephrine, Protonix, potassium supplementation, ceftriaxone, vasopressin 0.03 units per minute, azithromycin. ASSESSMENT AND PLAN: This is a 36-year-old lady who presented with severe community-acquired pneumonia complicated by septic shock, and acute kidney injury in the setting of human immunodeficiency virus infection. NEURO: The patient was somewhat lethargic, which might have potentially been attributed to draw tender hours; however, possibility of septic encephalopathy cannot be ruled out. We will try to minimize exposure to benzodiazepines and opiates. We will, however, proceed with methadone to avoid opiate withdrawal. We will try to optimize her sleep and circadian rhythm patterns. of note patient is on methadone 80 mg daily. I will hold today' s dose as patient is on azithromycin. QTc however 454. Pulmonary: The patient requires only minimal FiO2 supplementation. She is morbidly obese, most likely has some chronic obstructive pulmonary disease, OHS thus we will employ BiPAP at night. We will continue bronchodilators p.r.n. The patient does have severe community-acquired pneumonia. She is on ceftriaxone and azithromycin and ID consult is pending. Septic workup is pending. Procalcitonin is pending. Blood, urine, sputum culture were sent. Urine for Legionella and streptococcal antigen were sent. The patient is already on stress-dose steroids. Cardiovascular: The patient is likely distributive shock due to sepsis. She is on norepinephrine 20 mcg per minute, vasopressin 0.03 units per minute, stress-dose steroids or vasopressor and hemodynamic support. Echocardiogram is being performed right now. Her IVC to be more than 2 cm; however, still at 50% of respiratory variation in its diameter. The patient received 1 L of normal saline bolus. We will see what her left and right ventricles look like once echocardiogram is done. We will also see what her RVSP looks like, whether or not she have signs of pulmonary hypertension based on echo report. ID: The patient has severe community-acquired pneumonia. She also might have urinary tract infection. She is on antibiotics for community-acquired pneumonia. ID service consult is pending. The patient does not have risk factors for MDR pathogens; however, we will defer decision about escalating her antibiotic therapy to ID service. If the patient wont improve within 12 to 24 hours, we will escalate antibiotic therapy anyway. Procalcitonin, blood, urine, sputum culture are pending. Urine for Legionella and streptococcal antigen were sent. GI: Once her norepinephrine requirement improves a little bit, we will allow the patient to eat. In fact, the patient reports she is hungry. We will continue with GI prophylaxis. Renal: The patient has acute kidney injury, most likely due to acute tubular necrosis in the setting of sepsis. She has good urine output, and we will monitor urine output hourly with goal of 0.5 mL/kg per hour or more. Renal consult is pending. We will try to avoid nephrotoxic medication but not in expense of treating underlying disease. We will try to maintain mean arterial pressure more than 65. We will continue to target euvolemia, euglycemia, normothermia, and oxygen saturation more than 90%. We will continue with DVT and GI prophylaxis. ccm time 40 min Garrick Gaston MD [facility]FRE[facility]
--- NOTE | 2017-02-10 19:19 | CARD ---
APPROVED REPORT EXAM: Two-dimensional and M-mode echocardiogram with Doppler and color Doppler. INDICATION 2D DIMENSIONS IVSd1.4 (0.7-1.1cm)LVDd4.5 (3.9-5.9cm) PWd1.0 (0.7-1.1cm)LVDs3.2 (2.5-4.0cm) FS (%) 28.5 %LVEF (%)55.1 (>50%) M-Mode DIMENSIONS Left Atrium (MM)4.10 (2.5-4.0cm)Aortic Root3.30 (2.2-3.7cm) Aortic Cusp Exc.2.70 (1.5-2.0cm) Aortic Valve AoV Peak Otaolakp725.0cm/Cl[place] Peak GR.12mmHg Mitral Valve MV E Xkhffint537.0cm/s TDI Lateral E' Peak V22.10cm/sMedial E' Peak V20.90cm/sE/Lateral E'5.0 E/Medial E'5.3 Tricuspid Valve TR Peak [id number] [id number] Peak Gr.27mmHg [id number] LEFT VENTRICLE The left ventricle is normal size. There is mild concentric left ventricular hypertrophy. The left ventricular function is normal. The left ventricular ejection fraction is within the normal range. There is normal LV segmental wall motion. Transmitral Doppler flow pattern is Grade I-abnormal relaxation pattern. RIGHT VENTRICLE The right ventricle is normal size. There is normal right ventricular wall thickness. The right ventricular systolic function is normal. ATRIA The left atrium is borderline dilated. The right atrium size is normal. AORTIC VALVE The aortic valve is mildly thickened. No aortic regurgitation is present. There is no aortic valvular stenosis. MITRAL VALVE The mitral valve is mildly thickened. There is no mitral valve regurgitation noted. There is no mitral valve stenosis. TRICUSPID VALVE There is mild tricuspid regurgitation. There is mild pulmonary hypertension. GREAT VESSELS The aortic root is normal in size. The IVC is normal in size and collapses >50% with inspiration. <Conclusion> The left ventricle is normal size. There is mild concentric left ventricular hypertrophy. The left ventricular function is normal. The left ventricular ejection fraction is within the normal range. There is normal LV segmental wall motion. Transmitral Doppler flow pattern is Grade I-abnormal relaxation pattern. There is mild pulmonary hypertension.
--- NOTE | 2017-02-10 19:23 | CON ---
DATE: 02/10/2017 REFERRING PHYSICIAN: Reji Jean MD REASON FOR CONSULTATION: Evaluation of the patient unknown to me who presents with acute renal failure in the setting of hypotension and pneumonia. HISTORY OF PRESENT ILLNESS: The patient is a 36-year-old female with a history of HIV on HAART therapy, history of substance abuse and drug abuse, who presents to the hospital with increasing shortness of breath, cough, hemoptysis, elevated white blood cell count, fevers and chills. The patient is noted to have a left lower lobe pneumonia on chest CT scan. Upon admission to the hospital the patient was severely hypotensive with systolic blood pressures in the 70 to 90 systolic range and diastolics in the 30s. The patient was appropriately transferred to the ICU, she was placed on pressors to help, increase her blood pressure. Her urine output has picked up over the last several hours. The patient was noted to have a BUN of 53 with a creatinine of 4.3 on admission, and earlier this morning, BUN was 57 with a creatinine of 4.8. The patient's blood pressure has been stabilized on Levophed. The patient has no past history of chronic kidney disease. She has no other medical history other than that of HIV. We are asked to see the patient for evaluation of her acute renal failure. PAST MEDICAL HISTORY: Significant for that of HIV, drug abuse, anemia and obesity. MEDICATIONS AT HOME: Include that of Prezista, Descovy, Tivicay, methadone, Xanax, Elavil, and Norvir. ALLERGIES: THE PATIENT HAS NO KNOWN ALLERGIES TO MEDICATION. CURRENT MEDICATIONS: In the hospital include that of subcutaneous heparin, insulin sliding scale, Levophed, IV fluids with potassium, Protonix, Rocephin, Solu-Cortef, Tylenol, vasopressin, Versed, and Zithromax. SOCIAL HISTORY: Positive history of cigarette smoking. No history of alcohol use. Positive history of substance abuse. Positive history of drug abuse. FAMILY HISTORY: Mother has hypertension. Father of complications of kidney disease, heart disease and hypertension. REVIEW OF SYSTEMS: GENERAL: The patient states until this recent episode appetite and weight have been stable. EARS, NOSE AND THROAT: Denies any hearing or visual problems. PULMONARY: Shortness of breath related to present episode. Associated with cough and her pneumonia. Otherwise no past history of pulmonary disease. CARDIAC: No history of coronary artery disease. No chest pains. GASTROINTESTINAL: No nausea and no vomiting. No diarrhea and no constipation. At present, she has mild abdominal pain. GENITOURINARY: No history of chronic kidney disease. No history of UTIs. ENDOCRINE: No history of diabetes. MUSCULOSKELETAL: No complaints. NEUROLOGIC: No history of CVA, TIA, seizures or syncope. HEMATOLOGY/ONCOLOGY: History of anemia as noted above. PSYCHIATRIC: History is negative. PHYSICAL EXAMINATION GENERAL: The patient is currently seen in CCU bed to lying supine in bed, connected to multiple drips including that of vasopressin and Levophed. She remains on IV antibiotic therapy. VITAL SIGNS: Blood pressure presently is 116/49, was as low as 66/33 three hours ago. Pulse is 102, temperature presently is 99.4 and her T-max was 101.4. Oxygen saturation is 96% with a respiratory rate of 25. HEENT: Exam shows her be normocephalic and atraumatic. Conjunctivae are pale. Sclerae are nonicteric. Pupils are equal and reactive to light and accommodation. Extraocular muscles are intact. Posterior pharynx appears normal. NECK: Supple. No neck vein distention. No thyromegaly. No lymphadenopathy. No bruits. CHEST: Decreased breath sounds at the left base with scattered rhonchi and rales. No wheezing. CARDIOVASCULAR: Shows a regular rate and rhythm with distant heart sounds. No S3, no S4, and no rub. GASTROINTESTINAL: Abdomen is soft. Bowel sounds are normal. Mild tenderness diffusely on palpation. No rebound or guarding. No masses appreciated. BACK: No CVAT. No spinal tenderness. EXTREMITIES: Showed no lower extremity cyanosis, clubbing or edema. Distal lower extremity pulses are diminished at 1+ bilaterally. NEUROLOGIC: Shows her to be alert, oriented, and answering all questions appropriately. No gross focal motor or sensory deficits are noted. LABORATORY DATA AND IMAGING STUDIES: Admitting chest CT scan showed a left lower lobe pneumonia with mediastinal lymph nodes. Chest x-ray follow up done today showed no acute pulmonary disease?. Laboratories: CBC; white blood cell count of 19.1 on admission and 13.6 today. Hemoglobin is down from 9.7 to 8.1. Platelet count is down to 114,000. Sedimentation rate is 125. Coags; D-dimer was 800. Blood gas today; pH was 7.32, pO2 was 73 with a pCO2 of 21.3 and the calculated bicarbonate of 20. Chemistries: Sodium of 135 today and potassium is down from 4.5 to 3.5 with IV fluid administration. Chloride is 101. CO2 down from 25 to 21. BUN is up from 53 to 57 and creatinine is up from 4.3 to 4.8 today. Her baseline BUN is 20 with a creatinine of 1.2. Glucose was 94, calcium was 7.4, and magnesium level was low at 1.5. Iron saturations are 7%. Ammonia level is less than 9. Liver enzymes are normal. Albumin is low at 3.2. Troponin is not detectable. Her urine sodium was 14 with a urine potassium of 55.9, and urine creatinine was not done. Urine osmolality is pending. She has 25 to 30 white blood cells per high-power field, 5 to 10 red blood cells per high-power field, and trace protein. Microbiology; all cultures are pending. ASSESSMENT: 1. Acute renal failure in the setting of hemodynamic instability, hypotension likely acute tubular necrosis in the setting of a left lower lobe pneumonia in the setting of a patient with a history of human immunodeficiency virus. The patient's blood pressure had been returned to normal with Levophed and vasopressin. The patient will continue to receive these medications along with intravenous fluid hydration to normalize her hemodynamics. I expect her to reestablish excellent perfusion with her kidneys and her urine output is already picking up. I expect her BUN and creatinine over the next several days to return back to her baseline. I will rule out acute interstitial nephritis in light of the medications that she is taking. Urine culture and sensitivity is pending. Her fractional secretion of sodium is likely less than 1% and her urine sodium level is low indicative of hyperperfusion initially with her hypotension. 2. Left lower lobe pneumonia. The patient is on empiric antibiotic therapy. This was discussed with the cad engineer. Perhaps broad-spectrum antibiotic therapy, Infectious Diseases consultation is pending. 3. History of anemia in part secondary to her pneumonia in part secondary to iron deficiency. The patient should start on iron supplements. I will hold intravenous Venofer in light of the fact that she might be septic. 4. History of human immunodeficiency virus. Highly active antiretroviral therapy currently being held. 5. History of cigarette smoking and drug abuse. The patient understands that she needs to discontinue these habits. 6. Mild hypomagnesemia. We will supplement magnesium level of intravenous Mag Riders. 7. Morbid obesity. PLAN 1. Discussed in detail with ICU staff and cad engineer. The patient may continue IV fluid hydration with cautious supplementation of potassium and continue pressor support therapy with weaning of the pressors over time. 2. Continue broad-spectrum antibiotic therapy. 3. Urine C and S and all cultures are pending. 4. Renal ultrasound if her BUN and creatinine do not improve by tomorrow. 5. Check urine Sav stain and urine creatinine. Her urine sodium was sent and it was low. 6. Monitor output carefully. It appears that her urine output is picking up with re-establishment of perfusion pressures on her kidney. 7. Avoid all nephrotoxic agents. 8. ID evaluation pending. 9. P.r.n. pulmonary evaluation. Thank you for letting me partake and share in the care of your patient. Greater than 35 minutes spent in the care of this critically ill patient. Dictation by Dr. Cholo Mars. Cholo Mars MD
--- NOTE | 2017-02-10 23:24 | CARD ---
APPROVED REPORT EKG Measurement Heart [id number] <Conclusion> Sinus tachycardia Low voltage QRS Borderline ECG
--- NOTE | 2017-02-10 23:58 | CP.PCM.CON ---
History of Present Illness - History of Present Illness History of Present Illness: Infectious Disease Consultation: February 10, 2017 36 yo female with SOB and lethargy. She has a history of HIV, depression, anxiety, and DM. The patient has a history of hemoptysis, shortness of breath, and cough. The patient states symptoms started 1 weeks ago. The patient states that she did relapse with heroin use (inhaled/snorted) 1 week ago. She does NOT want her family to know about her heroin relapse. The patient has had HIV for 16 years. [facility] ( [facility]). She states that she was told her numbers are good but she doesn't know her numbers. The patient does not know if the heroin was cut with any other substance. PMHx: HIV, Depression, Anxiety, and DM PSHx: some abdominal surgery 5 years ago Allergies: NKDA Social Hx: Active tobacco use Unclear EtOH use illicit drug abuse history on methadone Active Medications Acetaminophen (Tylenol 325mg Tab) 650 mg PO Q6H PRN PRN Reason: Fever >100.4 F Albuterol/Ipratropium (Duoneb 3 Mg/0.5 Mg (3 Ml) Ud) 3 ml IH [id number] [facility] Last Admin: 02/10/17 13:35 Dose: 3 ml Albuterol/Ipratropium (Duoneb 3 Mg/0.5 Mg (3 Ml) Ud) 3 ml IH Q2H PRN PRN Reason: Shortness of Breath Heparin Sodium (Porcine) (Heparin) 5,000 units SC Q8 ROXI PRN Reason: Protocol Last Admin: 02/10/17 21:29 Dose: 5,000 units Hydrocortisone Sodium Succinate (Solu-Cortef) 50 mg IVP Q6H [facility] Last Admin: 02/10/17 20:22 Dose: 50 mg Ceftriaxone Sodium (Rocephin 1 Gram Ivpb) 1 gm in 100 mls @ 100 mls/hr IVPB DAILY ROXI PRN Reason: Protocol Last Admin: 02/10/17 09:34 Dose: 100 mls/hr Sodium Chloride (Sodium Chloride 0.9%) 1,000 mls @ 100 mls/hr IV .Q10H [facility] Last Admin: 02/10/17 09:00 Dose: 100 mls/hr NOREPINEPHRINE BIT/0.9 % NACL (Levophed 4 Mg/ 250 Ml Ns Premixed) 4 mg in 250 mls @ 15 mls/hr IV .[id number] PRN; Protocol; 4 MCG/MIN PRN Reason: TITRATE PER MD ORDER Last Titration: 02/10/17 14:00 Dose: 2 mcg/min, 7.5 mls/hr Azithromycin (Zithromax 500mg In Ns) 500 mg in 250 mls @ 167 mls/hr IVPB DAILY ROXI PRN Reason: Protocol Last Admin: 02/10/17 11:16 Dose: 167 mls/hr Vasopressin 20 units/ Dextrose 101 mls @ 9.09 mls/hr IV .[id number] ROXI; 0.03 U/MIN PRN Reason: Protocol Last Admin: 02/10/17 09:00 Dose: 9.09 mls/hr Insulin Human Regular (Humulin R Med) 0 units SC ACHS ROXI PRN Reason: Protocol Last Admin: 02/10/17 17:25 Dose: 1 units Methadone HCl (Methadone) 80 mg PO ONCE ONE Stop: 02/11/17 08:01 Midazolam HCl (Versed Inj) 5 mg IVP Q4H PRN PRN Reason: Agitation Pantoprazole Sodium (Protonix Ec Tab) 40 mg PO 0600 [facility] Last Admin: 02/10/17 05:58 Dose: 40 mg Family Hx: none given ROS: cough, SOB, hemopytsis, morbid obese No fevers, chills, nausea, vomiting, diarrhea, headaches, dizziness, chest pain , abdominal pain, melena, hematuria, hematemesis, hematochezia, LOC. Past Patient History - Infectious Disease Hx of Infectious Diseases: None - Tetanus Immunizations Tetanus Immunization: Unknown - Past Medical History & Family History Past Medical History?: Yes - Past Social History Smoking Status: Heavy Smoker > 10 Cigarettes Daily - CARDIAC Hx Cardiac Disorders: Yes Hx Hypertension: Yes - PULMONARY Hx Respiratory Disorders: No - NEUROLOGICAL Hx Neurological Disorder: No - HEENT Hx HEENT Problems: No - RENAL Hx Chronic Kidney Disease: No - ENDOCRINE/METABOLIC Hx Endocrine Disorders: No - HEMATOLOGICAL/ONCOLOGICAL Hx Blood Disorders: Yes - INTEGUMENTARY Hx Dermatological Problems: No - MUSCULOSKELETAL/RHEUMATOLOGICAL Hx Musculoskeletal Disorders: No - GASTROINTESTINAL Hx Gastrointestinal Disorders: No - GENITOURINARY/GYNECOLOGICAL Hx Genitourinary Disorders: No - PSYCHIATRIC Hx Psychophysiologic Disorder: Yes Hx Bipolar Disorder: Yes Hx Depression: Yes Hx Substance Use: Yes - SURGICAL HISTORY Hx Section: Yes - ANESTHESIA Hx Anesthesia: Yes Hx Anesthesia Reactions: No Hx Malignant Hyperthermia: No Meds Allergies/Adverse Reactions: Allergies Allergy/AdvReac Type Severity Reaction Status Date / Time No Known Allergies Allergy Verified 09/04/15 14:54 - Medications Medications: Current Medications Acetaminophen (Tylenol 325mg Tab) 650 mg PO Q6H PRN PRN Reason: Fever >100.4 F Albuterol/Ipratropium (Duoneb 3 Mg/0.5 Mg (3 Ml) Ud) 3 ml IH [id number] [facility] Last Admin: 02/10/17 13:35 Dose: 3 ml Albuterol/Ipratropium (Duoneb 3 Mg/0.5 Mg (3 Ml) Ud) 3 ml IH Q2H PRN PRN Reason: Shortness of Breath Heparin Sodium (Porcine) (Heparin) 5,000 units SC Q8 ROXI PRN Reason: Protocol Last Admin: 02/10/17 21:29 Dose: 5,000 units Hydrocortisone Sodium Succinate (Solu-Cortef) 50 mg IVP Q6H [facility] Last Admin: 02/10/17 20:22 Dose: 50 mg Ceftriaxone Sodium (Rocephin 1 Gram Ivpb) 1 gm in 100 mls @ 100 mls/hr IVPB DAILY [facility] PRN Reason: Protocol Last Admin: 02/10/17 09:34 Dose: 100 mls/hr Sodium Chloride (Sodium Chloride 0.9%) 1,000 mls @ 100 mls/hr IV .Q10H [facility] Last Admin: 02/10/17 09:00 Dose: 100 mls/hr NOREPINEPHRINE BIT/0.9 % NACL (Levophed 4 Mg/ 250 Ml Ns Premixed) 4 mg in 250 mls @ 15 mls/hr IV .[id number] PRN; Protocol; 4 MCG/MIN PRN Reason: TITRATE PER MD ORDER Last Titration: 02/10/17 14:00 Dose: 2 mcg/min, 7.5 mls/hr Azithromycin (Zithromax 500mg In Ns) 500 mg in 250 mls @ 167 mls/hr IVPB DAILY ROXI PRN Reason: Protocol Last Admin: 02/10/17 11:16 Dose: 167 mls/hr Vasopressin 20 units/ Dextrose 101 mls @ 9.09 mls/hr IV .Q11H7M ROIX; 0.03 U/MIN PRN Reason: Protocol Last Admin: 02/10/17 09:00 Dose: 9.09 mls/hr Insulin Human Regular (Humulin R Med) 0 units SC ACHS ROXI PRN Reason: Protocol Last Admin: 02/10/17 17:25 Dose: 1 units Methadone HCl (Methadone) 80 mg PO ONCE ONE Stop: 02/11/17 08:01 Midazolam HCl (Versed Inj) 5 mg IVP Q4H PRN PRN Reason: Agitation Pantoprazole Sodium (Protonix Ec Tab) 40 mg PO 0600 [facility] Last Admin: 02/10/17 05:58 Dose: 40 mg Physical Exam - Constitutional Appears: Toxic, In Acute Distress, Chronically Ill Additional comments: morbidly obese - Head Exam Head Exam: ATRAUMATIC, NORMOCEPHALIC - Eye Exam Eye Exam: EOMI, PERRL Pupil Exam: NORMAL ACCOMODATION, PERRL - ENT Exam ENT Exam: Mucous Membranes Moist, Normal External Ear Exam, TM's Normal Bilaterally - Neck Exam Neck exam: Positive for: Full Rom, Normal Inspection - Respiratory Exam Respiratory Exam: Decreased Breath Sounds, Wheezes. absent: Rales, Rhonchi - Cardiovascular Exam Cardiovascular Exam: Tachycardia, +S1, +S2 - GI/Abdominal Exam GI & Abdominal Exam: Normal Bowel Sounds, Soft. absent: Distended, Tenderness - Extremities Exam Extremities exam: Positive for: full ROM, normal inspection - Neurological Exam Neurological exam: Alert, CN II-XII Intact, Oriented x3 Additional comments: generally weak. - Psychiatric Exam Psychiatric exam: Normal Affect, Normal Mood - Skin Skin Exam: Intact, Normal Color Results - Vital Signs Recent Vital Signs: Last Vital Signs Temp 98.3 F 02/10/17 16:07 Pulse 97 H 02/10/17 18:00 Resp 16 02/10/17 16:56 BP 116/49 L 02/10/17 09:00 Pulse Ox 96 02/10/17 16:56 - Labs Result Diagrams: 02/10/17 05:15 02/10/17 05:15 Labs: Laboratory Results - last 24 hr 02/09/17 02/09/17 02/10/17 22:40 22:40 03:30 WBC RBC Hgb Hct MCV MCH MCHC RDW Plt Count MPV Gran % Lymph % (Auto) [place] % (Auto) Eos % (Auto) Baso % (Auto) Gran # Lymph # [place] # Eos # Baso # ESR 125 H Retic Count pCO2 pO2 HCO3 ABG pH ABG Total CO2 ABG O2 Saturation ABG Base Excess ABG Potassium VBG pH VBG pCO2 VBG HCO3 VBG Total CO2 VBG O2 Sat (Calc) VBG Base Excess VBG Potassium Glucose Lactate FiO2 Sodium Potassium Chloride Carbon Dioxide Anion Gap BUN Creatinine Est GFR ( Amer) Est GFR (Non-Af Amer) POC Glucose (mg/dL) Random Glucose Calcium Magnesium Iron TIBC % Saturation Ferritin Total Bilirubin AST ALT Alkaline Phosphatase Total Protein Albumin Globulin Albumin/Globulin Ratio Vitamin B12 Folate Procalcitonin 6.77 H Arterial Blood Potassium Venous Blood Potassium Urine Eosinophils Urine Osmolality 344 Ur Random Creatinine Ur Random Sodium 14 Ur Random Potassium 55.9 Ur L.pneumophila Ag 02/10/17 02/10/17 02/10/17 03:30 05:15 05:15 WBC 13.6 H D RBC 2.86 L Hgb 8.1 L Hct 25.5 L MCV 89.2 MCH 28.3 MCHC 31.8 RDW 14.9 H Plt Count 114 L MPV 11.8 H Gran % 83.8 H Lymph % (Auto) 6.9 L [place] % (Auto) 9.1 H Eos % (Auto) 0.1 L Baso % (Auto) 0.1 Gran # 11.38 H Lymph # 0.9 L [place] # 1.2 H Eos # 0.0 Baso # 0.01 ESR Retic Count pCO2 pO2 HCO3 ABG pH ABG Total CO2 ABG O2 Saturation ABG Base Excess ABG Potassium VBG pH VBG pCO2 VBG HCO3 VBG Total CO2 VBG O2 Sat (Calc) VBG Base Excess VBG Potassium Glucose Lactate FiO2 Sodium 135 Potassium 3.5 L Chloride 101 Carbon Dioxide 21 Anion Gap 16 BUN 57 H Creatinine 4.8 H Est GFR ( Amer) 12 Est GFR (Non-Af Amer) 10 POC Glucose (mg/dL) Random Glucose 94 Calcium 7.9 L Magnesium Iron TIBC % Saturation Ferritin Total Bilirubin 0.8 AST 30 ALT 25 Alkaline Phosphatase 90 Total Protein 7.8 Albumin 3.2 Globulin 4.5 Albumin/Globulin Ratio 0.7 L Vitamin B12 Folate Procalcitonin Arterial Blood Potassium Venous Blood Potassium Urine Eosinophils Urine Osmolality Ur Random Creatinine Ur Random Sodium Ur Random Potassium Ur L.pneumophila Ag Negative 02/10/17 02/10/17 02/10/17 05:15 05:15 05:15 WBC RBC Hgb Hct MCV MCH MCHC RDW Plt Count MPV Gran % Lymph % (Auto) [place] % (Auto) Eos % (Auto) Baso % (Auto) Gran # Lymph # [place] # Eos # Baso # ESR Retic Count 1.84 H pCO2 pO2 HCO3 ABG pH ABG Total CO2 ABG O2 Saturation ABG Base Excess ABG Potassium VBG pH VBG pCO2 VBG HCO3 VBG Total CO2 VBG O2 Sat (Calc) VBG Base Excess VBG Potassium Glucose Lactate FiO2 Sodium Potassium Chloride Carbon Dioxide Anion Gap BUN Creatinine Est GFR ( Amer) Est GFR (Non-Af Amer) POC Glucose (mg/dL) Random Glucose Calcium Magnesium 1.5 L Iron 18 L TIBC 261 L % Saturation 7 L Ferritin 120.0 Total Bilirubin AST ALT Alkaline Phosphatase Total Protein Albumin Globulin Albumin/Globulin Ratio Vitamin B12 916 Folate 7.7 Procalcitonin Arterial Blood Potassium Venous Blood Potassium Urine Eosinophils Urine Osmolality Ur Random Creatinine Ur Random Sodium Ur Random Potassium Ur L.pneumophila Ag 02/10/17 02/10/17 02/10/17 07:10 07:25 08:30 WBC RBC Hgb Hct MCV MCH MCHC RDW Plt Count MPV Gran % Lymph % (Auto) [place] % (Auto) Eos % (Auto) Baso % (Auto) Gran # Lymph # [place] # Eos # Baso # ESR Retic Count pCO2 39 pO2 69 H 73.0 L HCO3 20.1 L ABG pH 7.32 L ABG Total CO2 21.3 L ABG O2 Saturation 96.1 ABG Base Excess -5.6 L ABG Potassium 3.3 L VBG pH 7.29 L VBG pCO2 45.0 VBG HCO3 21.6 VBG Total CO2 23.0 VBG O2 Sat (Calc) 95.3 H VBG Base Excess -5.0 L VBG Potassium 3.7 Glucose 96 104 Lactate 1.4 1.1 FiO2 21.0 43.0 Sodium 134.0 134.0 Potassium Chloride 104.0 104.0 Carbon Dioxide Anion Gap BUN Creatinine Est GFR ( Amer) Est GFR (Non-Af Amer) POC Glucose (mg/dL) 101 Random Glucose Calcium Magnesium Iron TIBC % Saturation Ferritin Total Bilirubin AST ALT Alkaline Phosphatase Total Protein Albumin Globulin Albumin/Globulin Ratio Vitamin B12 Folate Procalcitonin Arterial Blood Potassium 3.3 L Venous Blood Potassium 3.7 Urine Eosinophils Urine Osmolality Ur Random Creatinine Ur Random Sodium Ur Random Potassium Ur L.pneumophila Ag 02/10/17 02/10/17 02/10/17 11:06 16:09 19:54 WBC RBC Hgb Hct MCV MCH MCHC RDW Plt Count MPV Gran % Lymph % (Auto) [place] % (Auto) Eos % (Auto) Baso % (Auto) Gran # Lymph # [place] # Eos # Baso # ESR Retic Count pCO2 pO2 HCO3 ABG pH ABG Total CO2 ABG O2 Saturation ABG Base Excess ABG Potassium VBG pH VBG pCO2 VBG HCO3 VBG Total CO2 VBG O2 Sat (Calc) VBG Base Excess VBG Potassium Glucose Lactate FiO2 Sodium Potassium Chloride Carbon Dioxide Anion Gap BUN Creatinine Est GFR ( Amer) Est GFR (Non-Af Amer) POC Glucose (mg/dL) 121 H 182 H Random Glucose Calcium Magnesium Iron TIBC % Saturation Ferritin Total Bilirubin AST ALT Alkaline Phosphatase Total Protein Albumin Globulin Albumin/Globulin Ratio Vitamin B12 Folate Procalcitonin Arterial Blood Potassium Venous Blood Potassium Urine Eosinophils Urine Osmolality Ur Random Creatinine 81 Ur Random Sodium Ur Random Potassium Ur L.pneumophila Ag 02/10/17 02/10/17 19:54 21:51 WBC RBC Hgb Hct MCV MCH MCHC RDW Plt Count MPV Gran % Lymph % (Auto) [place] % (Auto) Eos % (Auto) Baso % (Auto) Gran # Lymph # [place] # Eos # Baso # ESR Retic Count pCO2 pO2 HCO3 ABG pH ABG Total CO2 ABG O2 Saturation ABG Base Excess ABG Potassium VBG pH VBG pCO2 VBG HCO3 VBG Total CO2 VBG O2 Sat (Calc) VBG Base Excess VBG Potassium Glucose Lactate FiO2 Sodium Potassium Chloride Carbon Dioxide Anion Gap BUN Creatinine Est GFR ( Amer) Est GFR (Non-Af Amer) POC Glucose (mg/dL) 116 H Random Glucose Calcium Magnesium Iron TIBC % Saturation Ferritin Total Bilirubin AST ALT Alkaline Phosphatase Total Protein Albumin Globulin Albumin/Globulin Ratio Vitamin B12 Folate Procalcitonin Arterial Blood Potassium Venous Blood Potassium Urine Eosinophils Negative Urine Osmolality Ur Random Creatinine Ur Random Sodium Ur Random Potassium Ur L.pneumophila Ag Assessment & Plan - Assessment and Plan (Free Text) Assessment: 36 yo morbidly obese female with HIV for the past 16 year ([facility] at the [facility] site) presenting with hemoptysis, cough, and SOB. The patient states that she did relapse with her heroin use. The patient inhaled/snorted heroin one week ago and the symptoms started after that. Cannot rule out CAP, aspiration pneumonia, and/or chemical pneumonitis. The patient may need bronchoscopy if hemoptysis continues. Need to obtain the patient's CD4 and viral load. Should be retested in hospital as well as values obtained from her HIV clinic. The patient follows every 3-6 months with the clinic. Continue IV antibiotics with Rocephin and Azithromycin for now. May need to broaden coverage to Zosyn from Rocephin if fevers return and/or leukocytosis persists. Supportive care. Thank you for allowing me to participate in the care of the patient, we will follow with you.
[2017-02-11] MEDS: Sodium Chloride 0.9% 1,000 ML IV SCH
[2017-02-11] MEDS: Albuterol-Ipratrop 3 mg / 0.5 (3 ml) UD IH SCH ×4 (01:40→20:00)
--- NOTE | 2017-02-11 03:25 | OP ---
PROCEDURE DATE: 02/10/2017 INDICATIONS: Vasopressor therapy. PROCEDURE. Right internal jugular central venous line placement. DESCRIPTION OF PROCEDURE: After obtaining informed consent, operation area was sterilized. Maximum barrier precautions used. Right IJ vein was cannulated according to sterile Seldinger technique under real-time ultrasound guidance. Guidewire removed. Hemostasis was achieved. Sterile dressing was applied. Chest x-ray confirmed correct position of the CVL. The patient tolerate the procedure well. EBL minimal. Garrick Gaston MD MTDD
[2017-02-11] MEDS: Pantoprazole 40 mg EC Tab PO SCH (05:13)
[2017-02-11 06:42] LABS: BASO # 0.01 K/mm3 (0.0-2.0); BASO % 0.1 % (0.0-3.0); EOS % 0.1 % (1.5-5.0); GRAN # 9.48 (1.4-6.5); GRAN % 85.1 % (50.0-68.0); HEMATOCRIT 25.3 % (36.0-48.0); LYMPH # 1.1 (1.2-3.4); LYMPH % 9.9 % (22.0-35.0); MEAN CELL VOLUME 89.1 fl (80.0-105.0); MEAN CORPUSCULAR HEMOGLOBIN 28.2 pg (25.0-35.0); MEAN CORPUSCULAR HGB CONC 31.6 g/dl (31.0-37.0); MONO # 0.5 (0.1-0.6); MONO % 4.8 % (1.0-6.0); RED CELL DISTRIBUTION WIDTH 15.2 % (11.5-14.5); WHITE BLOOD COUNT 11.1 10^3/ul (4.5-11.0)
[2017-02-11 06:56] LABS: ALB/GLOB RATIO 0.7 (1.1-1.8); BILIRUBIN,TOTAL 0.5 mg/dL (0.2-1.3); CALCIUM 7.6 mg/dL (8.4-10.5); POTASSIUM 3.8 mmol/L (3.6-5.0); TOTAL PROTEIN 7.5 g/dL (5.8-8.3)
[2017-02-11] MEDS: Insulin Reg-MEDIUM-Coverage SC SCH ×4 (08:04→22:09)
[2017-02-11] MEDS: cefTRIAXone 1 gm 1 GM/100 ML BAG IVPB SCH (09:00)
[2017-02-11] MEDS: Azithromycin 500MG/NS 250ml 500 MG/250 ML BAG IVPB SCH (09:00)
--- NOTE | 2017-02-11 11:27 | CP.CCUPN ---
<Ole Thompson - Last Filed: 02/11/17 11:24> CCU Subjective - Physician Review Subjective (Free Text): 02/11/17 11:24 Ole Thompson D.O. PGY-2, Critical Care Progress Note 36 year old female with a PMH of HIV, heroin abuse, diabetes who presented to [facility] [place] [facility] on 02/09 with SOB and hemoptysis. Patient was seen and examined at bedside. Patient at this time is comfortable, states that she still at times has some difficulties breathing and also continues to have some blood when she coughs. No acute overnight events per nursing staff. CCU Objective - Vital Signs / Intake & Output Vital Signs (Last 4 hours): Vital Signs Pulse Resp BP Pulse Ox 02/11/17 10:50 93 H 22 97 02/11/17 10:40 93 H 24 96 02/11/17 10:31 97 H 27 H 100/58 L 97 02/11/17 10:20 94 H 17 96 02/11/17 10:10 94 H 19 96 02/11/17 10:00 96 H 02/11/17 09:50 94 H 19 97 02/11/17 09:40 96 H 15 97 02/11/17 09:30 98 H 99 02/11/17 09:20 96 H 19 100 02/11/17 09:18 96 H 21 102/57 L 98 02/11/17 09:10 95 H 18 02/11/17 09:09 96 H 23 02/11/17 09:08 96 H 12 02/11/17 09:00 96 H 23 99 02/11/17 08:50 96 H 24 100 02/11/17 08:44 94 H 13 02/11/17 08:43 88 29 H 02/11/17 08:18 97 H 26 H 02/11/17 08:17 96 H 26 H 02/11/17 08:16 93 H 02/11/17 08:00 86 19 101/48 L 100 02/11/17 07:50 82 17 100 02/11/17 07:40 89 100 02/11/17 07:35 112/69 02/11/17 07:30 86 17 98 Intake and Output (Last 8hrs): Intake & Output 02/10/17 02/11/17 02/11/17 22:59 06:59 14:59 Intake Total 1850 1606 48 Output Total 1999 1400 Balance -150 206 48 Weight 136.078 kg Intake: IV 1650 1306 48 RT IJ TlC 1200 antibiotic 350 1200 vesopressin 100 Oral 200 300 Output: Urine 1999 1400 Urine, Voided 1999 1400 Other: # Voids Urine, Voided 1 # Bowel Movements 0 0 - Physical Exam Head: Positive for: Atraumatic, Normocephalic Pupils: Positive for: PERRL Extroacular Muscles: Positive for: EOMI Conjunctiva: Positive for: Normal Ears: Positive for: Normal Mouth: Positive for: Moist Mucous Membranes Pharnyx: Positive for: Normal Nose (External): Positive for: Atraumatic Neck: Positive for: Trachea Midline Respiratory/Chest: Positive for: Wheezes, Rhonchi (R posterior lung french). Negative for: Respiratory Distress, Accessory Muscle Use Cardiovascular: Positive for: Normal S1, S2. Negative for: Murmurs, Rub, Gallop Abdomen: Positive for: Normal Bowel Sounds. Negative for: Tenderness, Distention, Peritoneal Signs, Rebound Back: Positive for: Normal Inspection Upper Extremity: Positive for: Normal Inspection, Normal ROM, Other (peripheral pulses 2+). Negative for: Cyanosis, Edema Lower Extremity: Positive for: Normal Inspection, Edema (trache) Neurological: Positive for: GCS=15, CN II-XII Intact, Speech Normal Skin: Positive for: Warm, Dry. Negative for: Rashes Psychiatric: Positive for: Alert, Oriented x 3 - Medications Active Medications: Active Medications Generic Name Dose Route Start Last Admin Trade Name Freq PRN Reason Stop Dose Admin Acetaminophen 650 mg 02/09/17 22:44 Tylenol 325mg Tab PO Q6H PRN Fever >100.4 F Albuterol/Ipratropium 3 ml 02/10/17 14:00 02/11/17 07:46 Duoneb 3 Mg/0.5 Mg (3 Ml) Ud IH 3 ml [id number] ROXI Administration Albuterol/Ipratropium 3 ml 02/10/17 11: Duoneb 3 Mg/0.5 Mg (3 Ml) Ud IH Q2H PRN Shortness of Breath Heparin Sodium (Porcine) 5,000 units 02/10/17 06:00 02/11/17 05:13 Heparin SC 5,000 units Q8 ROXI Administration Protocol Hydrocortisone Sodium Succinate 50 mg 02/10/17 08:15 02/11/17 08:58 Solu-Cortef IVP 50 mg Q6H ROXI Administration Ceftriaxone Sodium 1 gm in 100 mls @ 100 mls/hr 02/10/17 10:00 02/11/17 09:00 Rocephin 1 Gram Ivpb IVPB 100 mls/hr DAILY ROXI Administration Protocol Sodium Chloride 1,000 mls @ 100 mls/hr 02/09/17 22:45 02/11/17 00:00 Sodium Chloride 0.9% IV 100 mls/hr .Q10H ROXI Administration NOREPINEPHRINE BIT/0.9 % NACL 4 mg in 250 mls @ 15 mls/hr 02/10/17 06:26 07:39 Levophed 4 Mg/ 250 Ml Ns Premixed IV 0 mcg/min .[id number] PRN 0 mls/hr TITRATE PER MD ORDER Titration Protocol 4 MCG/MIN Azithromycin 500 mg in 250 mls @ 167 mls/hr 02/10/17 10:00 02/11/17 09:00 Zithromax 500mg In Ns IVPB 167 mls/hr DAILY ROXI Administration Protocol Vasopressin 20 units/ Dextrose 101 mls @ 9.09 mls/hr 02/10/17 08:15 02/10/17 09:00 IV 9.09 mls/hr .[id number] ROXI Administration Protocol 0.03 U/MIN Insulin Human Regular 0 units 02/10/17 07:30 02/11/17 08:04 Humulin R Med SC Not Given ACHS ROXI Protocol Midazolam HCl 5 mg 02/10/17 08:35 Versed Inj IVP Q4H PRN Agitation Mupirocin 0 gm 02/11/17 18:00 Bactroban Ointment NS 02/16/17 10:01 BID ROXI Pantoprazole Sodium 40 mg 02/10/17 06:00 02/11/17 05:13 Protonix Ec Tab PO 40 mg 0600 ROXI Administration - Patient Studies Lab Studies: Microbiology Studies 02/10/17 00:30 MRSA Culture (Admit) - Final Nose MRSA DETECTED 02/09/17 22:50 Urine Culture - Preliminary Urine,Clean Catch Gram Negative Nakul 02/10/17 08:20 Blood Culture - Preliminary Blood-Thru Central Line NO GROWTH AFTER 24 HOURS Lab Studies 02/11/17 02/11/17 02/10/17 Range/Units 06:15 06:15 21:51 WBC 11.1 H (4.5-11.0) 10^3/ul RBC 2.84 L (3.5-6.1) 10^6/uL Hgb 8.0 L (12.0-16.0) g/dL Hct 25.3 L (36.0-48.0) % MCV 89.1 (80.0-105.0) fl MCH 28.2 (25.0-35.0) pg MCHC 31.6 (31.0-37.0) g/dl RDW 15.2 H (11.5-14.5) % Plt Count 115 L (120.0-450.0) 10^3/uL MPV 12.0 H (7.0-11.0) fl Gran % 85.1 H (50.0-68.0) % Lymph % (Auto) 9.9 L (22.0-35.0) % [place] % (Auto) 4.8 (1.0-6.0) % Eos % (Auto) 0.1 L (1.5-5.0) % Baso % (Auto) 0.1 (0.0-3.0) % Gran # 9.48 H (1.4-6.5) Lymph # 1.1 L (1.2-3.4) [place] # 0.5 (0.1-0.6) Eos # 0.0 (0.0-0.7) Baso # 0.01 (0.0-2.0) K/mm3 Sodium 141 (132-148) mmol/L Potassium 3.8 (3.6-5.0) mmol/L Chloride 109 H (98-107) mmol/L Carbon Dioxide 24 (21-33) mmol/L Anion Gap 12 (10-20) BUN 53 H (7-21) mg/dL Creatinine 3.0 H (0.7-1.2) mg/dl Est GFR ( Amer) 21 Est GFR (Non-Af Amer) 17 POC Glucose (mg/dL) 116 H (65-110) mg/dL Random Glucose 140 H (70-110) mg/dL Calcium 7.6 L (8.4-10.5) mg/dL Ferritin ng/mL Total Bilirubin 0.5 (0.2-1.3) mg/dL AST 33 (14-36) U/L ALT 17 (7-56) U/L Alkaline Phosphatase 93 (38-126) U/L Total Protein 7.5 (5.8-8.3) g/dL Albumin 3.0 (3.0-4.8) g/dL Globulin 4.4 gm/dL Albumin/Globulin Ratio 0.7 L (1.1-1.8) Vitamin B12 (239-931) pg/mL Folate ng/mL Procalcitonin (0.19-0.49) NG/ML Urine Eosinophils Urine Osmolality (300-1000) mosm/kg Ur Random Creatinine mg/dL Ur L.pneumophila Ag (NEGATIVE) 02/10/17 02/10/17 02/10/17 Range/Units 19:54 19:54 16:09 WBC (4.5-11.0) 10^3/ul RBC (3.5-6.1) 10^6/uL Hgb (12.0-16.0) g/dL Hct (36.0-48.0) % MCV (80.0-105.0) fl MCH (25.0-35.0) pg MCHC (31.0-37.0) g/dl RDW (11.5-14.5) % Plt Count (120.0-450.0) 10^3/uL MPV (7.0-11.0) fl Gran % (50.0-68.0) % Lymph % (Auto) (22.0-35.0) % [place] % (Auto) (1.0-6.0) % Eos % (Auto) (1.5-5.0) % Baso % (Auto) (0.0-3.0) % Gran # (1.4-6.5) Lymph # (1.2-3.4) [place] # (0.1-0.6) Eos # (0.0-0.7) Baso # (0.0-2.0) K/mm3 Sodium (132-148) mmol/L Potassium (3.6-5.0) mmol/L Chloride (98-107) mmol/L Carbon Dioxide (21-33) mmol/L Anion Gap (10-20) BUN (7-21) mg/dL Creatinine (0.7-1.2) mg/dl Est GFR ( Amer) Est GFR (Non-Af Amer) POC Glucose (mg/dL) 182 H (65-110) mg/dL Random Glucose (70-110) mg/dL Calcium (8.4-10.5) mg/dL Ferritin ng/mL Total Bilirubin (0.2-1.3) mg/dL AST (14-36) U/L ALT (7-56) U/L Alkaline Phosphatase (38-126) U/L Total Protein (5.8-8.3) g/dL Albumin (3.0-4.8) g/dL Globulin gm/dL Albumin/Globulin Ratio (1.1-1.8) Vitamin B12 (239-931) pg/mL Folate ng/mL Procalcitonin (0.19-0.49) NG/ML Urine Eosinophils Negative Urine Osmolality (300-1000) mosm/kg Ur Random Creatinine 81 mg/dL Ur L.pneumophila Ag (NEGATIVE) 02/10/17 02/10/17 02/10/17 Range/Units 11:06 07:25 05:15 WBC (4.5-11.0) 10^3/ul RBC (3.5-6.1) 10^6/uL Hgb (12.0-16.0) g/dL Hct (36.0-48.0) % MCV (80.0-105.0) fl MCH (25.0-35.0) pg MCHC (31.0-37.0) g/dl RDW (11.5-14.5) % Plt Count (120.0-450.0) 10^3/uL MPV (7.0-11.0) fl Gran % (50.0-68.0) % Lymph % (Auto) (22.0-35.0) % [place] % (Auto) (1.0-6.0) % Eos % (Auto) (1.5-5.0) % Baso % (Auto) (0.0-3.0) % Gran # (1.4-6.5) Lymph # (1.2-3.4) [place] # (0.1-0.6) Eos # (0.0-0.7) Baso # (0.0-2.0) K/mm3 Sodium (132-148) mmol/L Potassium (3.6-5.0) mmol/L Chloride (98-107) mmol/L Carbon Dioxide (21-33) mmol/L Anion Gap (10-20) BUN (7-21) mg/dL Creatinine (0.7-1.2) mg/dl Est GFR ( Amer) Est GFR (Non-Af Amer) POC Glucose (mg/dL) 121 H 101 (65-110) mg/dL Random Glucose (70-110) mg/dL Calcium (8.4-10.5) mg/dL Ferritin 120.0 ng/mL Total Bilirubin (0.2-1.3) mg/dL AST (14-36) U/L ALT (7-56) U/L Alkaline Phosphatase (38-126) U/L Total Protein (5.8-8.3) g/dL Albumin (3.0-4.8) g/dL Globulin gm/dL Albumin/Globulin Ratio (1.1-1.8) Vitamin B12 916 (239-931) pg/mL Folate 7.7 ng/mL Procalcitonin (0.19-0.49) NG/ML Urine Eosinophils Urine Osmolality (300-1000) mosm/kg Ur Random Creatinine mg/dL Ur L.pneumophila Ag (NEGATIVE) 02/10/17 02/10/17 02/09/17 Range/Units 03:30 03:30 22:40 WBC (4.5-11.0) 10^3/ul RBC (3.5-6.1) 10^6/uL Hgb (12.0-16.0) g/dL Hct (36.0-48.0) % MCV (80.0-105.0) fl MCH (25.0-35.0) pg MCHC (31.0-37.0) g/dl RDW (11.5-14.5) % Plt Count (120.0-450.0) 10^3/uL MPV (7.0-11.0) fl Gran % (50.0-68.0) % Lymph % (Auto) (22.0-35.0) % [place] % (Auto) (1.0-6.0) % Eos % (Auto) (1.5-5.0) % Baso % (Auto) (0.0-3.0) % Gran # (1.4-6.5) Lymph # (1.2-3.4) [place] # (0.1-0.6) Eos # (0.0-0.7) Baso # (0.0-2.0) K/mm3 Sodium (132-148) mmol/L Potassium (3.6-5.0) mmol/L Chloride (98-107) mmol/L Carbon Dioxide (21-33) mmol/L Anion Gap (10-20) BUN (7-21) mg/dL Creatinine (0.7-1.2) mg/dl Est GFR ( Amer) Est GFR (Non-Af Amer) POC Glucose (mg/dL) (65-110) mg/dL Random Glucose (70-110) mg/dL Calcium (8.4-10.5) mg/dL Ferritin ng/mL Total Bilirubin (0.2-1.3) mg/dL AST (14-36) U/L ALT (7-56) U/L Alkaline Phosphatase (38-126) U/L Total Protein (5.8-8.3) g/dL Albumin (3.0-4.8) g/dL Globulin gm/dL Albumin/Globulin Ratio (1.1-1.8) Vitamin B12 (239-931) pg/mL Folate ng/mL Procalcitonin 6.77 H (0.19-0.49) NG/ML Urine Eosinophils Urine Osmolality 344 (300-1000) mosm/kg Ur Random Creatinine mg/dL Ur L.pneumophila Ag Negative (NEGATIVE) Laboratory Results - last 24 hr 02/09/17 02/10/17 02/10/17 22:40 03:30 03:30 WBC RBC Hgb Hct MCV MCH MCHC RDW Plt Count MPV Gran % Lymph % (Auto) [place] % (Auto) Eos % (Auto) Baso % (Auto) Gran # Lymph # [place] # Eos # Baso # Sodium Potassium Chloride Carbon Dioxide Anion Gap BUN Creatinine Est GFR ( Amer) Est GFR (Non-Af Amer) POC Glucose (mg/dL) Random Glucose Calcium Ferritin Total Bilirubin AST ALT Alkaline Phosphatase Total Protein Albumin Globulin Albumin/Globulin Ratio Vitamin B12 Folate Procalcitonin 6.77 H Urine Eosinophils Urine Osmolality 344 Ur Random Creatinine Ur L.pneumophila Ag Negative 02/10/17 02/10/17 02/10/17 05:15 07:25 11:06 WBC RBC Hgb Hct MCV MCH MCHC RDW Plt Count MPV Gran % Lymph % (Auto) [place] % (Auto) Eos % (Auto) Baso % (Auto) Gran # Lymph # [place] # Eos # Baso # Sodium Potassium Chloride Carbon Dioxide Anion Gap BUN Creatinine Est GFR ( Amer) Est GFR (Non-Af Amer) POC Glucose (mg/dL) 101 121 H Random Glucose Calcium Ferritin 120.0 Total Bilirubin AST ALT Alkaline Phosphatase Total Protein Albumin Globulin Albumin/Globulin Ratio Vitamin B12 916 Folate 7.7 Procalcitonin Urine Eosinophils Urine Osmolality Ur Random Creatinine Ur L.pneumophila Ag 02/10/17 02/10/17 02/10/17 16:09 19:54 19:54 WBC RBC Hgb Hct MCV MCH MCHC RDW Plt Count MPV Gran % Lymph % (Auto) [place] % (Auto) Eos % (Auto) Baso % (Auto) Gran # Lymph # [place] # Eos # Baso # Sodium Potassium Chloride Carbon Dioxide Anion Gap BUN Creatinine Est GFR ( Amer) Est GFR (Non-Af Amer) POC Glucose (mg/dL) 182 H Random Glucose Calcium Ferritin Total Bilirubin AST ALT Alkaline Phosphatase Total Protein Albumin Globulin Albumin/Globulin Ratio Vitamin B12 Folate Procalcitonin Urine Eosinophils Negative Urine Osmolality Ur Random Creatinine 81 Ur L.pneumophila Ag 02/10/17 02/11/17 02/11/17 21:51 06:15 06:15 WBC 11.1 H RBC 2.84 L Hgb 8.0 L Hct 25.3 L MCV 89.1 MCH 28.2 MCHC 31.6 RDW 15.2 H Plt Count 115 L MPV 12.0 H Gran % 85.1 H Lymph % (Auto) 9.9 L [place] % (Auto) 4.8 Eos % (Auto) 0.1 L Baso % (Auto) 0.1 Gran # 9.48 H Lymph # 1.1 L [place] # 0.5 Eos # 0.0 Baso # 0.01 Sodium 141 Potassium 3.8 Chloride 109 H Carbon Dioxide 24 Anion Gap 12 BUN 53 H Creatinine 3.0 H Est GFR ( Amer) 21 Est GFR (Non-Af Amer) 17 POC Glucose (mg/dL) 116 H Random Glucose 140 H Calcium 7.6 L Ferritin Total Bilirubin 0.5 AST 33 ALT 17 Alkaline Phosphatase 93 Total Protein 7.5 Albumin 3.0 Globulin 4.4 Albumin/Globulin Ratio 0.7 L Vitamin B12 Folate Procalcitonin Urine Eosinophils Urine Osmolality Ur Random Creatinine Ur L.pneumophila Ag Fingerstick Blood Sugar Results: 118 Critical Care Progress Note - Nutrition Nutrition: Nutrition Category Date Time Status Heart Healthy Diet [DIET] Diets 02/10/17 Dinner Ordered Assessment/Plan - Assessment and Plan (Free Text) Assessment: 36 year old female with a PMH of HIV, heroin abuse, diabetes who presented to [facility] [place] ER on 02/09 with SOB and hemoptysis Plan: Neurological AAOx4, nonfocal Cardiovascular HD stable off levophed and vasopressin Cont to monitor closely Pulmnologic Cxr showed left lower lobe infiltrate, possible PNA vs pcp Chest CT showed [id number] PNA and mediastinal adenopathy ID Dr. Barker consulted, recs appreciated Hemoptysis very minimal at this time, no bronchoscopy at this time Cont azithromycin and ceftriaxone D2 Cont ROXI and PRN nebs Monitoring closely GI Cont protonix for GI prophalaxis Cont HH diet, tolerating well Nephro/electrolytes MEJIA likely 2/2 septic shock which has improved BUN and CR downtrending Following with CMP Cont IVF NS @100 Nephro consulted, recs appreciated ID Septic shock from likely pulm vs UTI source requiring pressor support in the setting of known HIV, now off pressors ID Dr. Barker following, recs appreciated Cont PRN tylenol for fever Cont stress steroids solucortef 50q6 Procal elevated, pending repeat and CRP repeat Pending urine legionella, m. pneumonia, strep pneumonia Blood cultures 1/2 day 2 + for G+ cocci in chains, repeats from 02/10 negative 1 day 1 CD4 and viral load pending Leukocytosis downtrending Afebrile past 24 hrs Heme Normocytic anemia, most likely multi factorial at this time HD stable Stable, will continue to monitor Psych Hx heroin abuse with recent relapse, states goes to methadone clinic, primary team obtaining records GI/DVT ppx: protonix/heparin SC Patient was seen and examined and case was discussed at length with attending physician. - Date & Time Date: 02/11/17 Time: 07:45 <Garrick Gaston - Last Filed: 02/11/17 14:56> CCU Objective - Vital Signs / Intake & Output Vital Signs (Last 4 hours): Vital Signs Pulse Resp Pulse Ox 02/11/17 10:50 93 H 22 97 Intake and Output (Last 8hrs): Intake & Output 02/10/17 02/11/17 02/11/17 22:59 06:59 14:59 Intake Total 1850 1606 48 Output Total 1999 1400 Balance -150 206 48 Weight 300 lb Intake: IV 1650 1306 48 RT IJ TlC 1200 antibiotic 350 1200 vesopressin 100 Oral 200 300 Output: Urine 1999 1400 Urine, Voided 1999 1400 Other: # Voids Urine, Voided 1 # Bowel Movements 0 0 - Medications Active Medications: Active Medications Generic Name Dose Route Start Last Admin Trade Name Freq PRN Reason Stop Dose Admin Acetaminophen 650 mg 02/09/17 22:44 Tylenol 325mg Tab PO Q6H PRN Fever >100.4 F Albuterol/Ipratropium 3 ml 02/10/17 14:00 02/11/17 13:57 Duoneb 3 Mg/0.5 Mg (3 Ml) Ud IH 3 ml [id number] ROXI Administration Albuterol/Ipratropium 3 ml 02/10/17 11:17 Duoneb 3 Mg/0.5 Mg (3 Ml) Ud IH Q2H PRN Shortness of Breath Heparin Sodium (Porcine) 5,000 units 02/10/17 06:00 02/11/17 13:03 Heparin SC 5,000 units Q8 ROXI Administration Protocol Hydrocortisone Sodium Succinate 50 mg 02/10/17 08:15 02/11/17 13:04 Solu-Cortef IVP 50 mg Q6H ROXI Administration Ceftriaxone Sodium 1 gm in 100 mls @ 100 mls/hr 02/10/17 10:00 02/11/17 09:00 Rocephin 1 Gram Ivpb IVPB 100 mls/hr DAILY ROXI Administration Protocol Sodium Chloride 1,000 mls @ 100 mls/hr 02/09/17 22:45 02/11/17 00:00 Sodium Chloride 0.9% IV 100 mls/hr .Q10H ROXI Administration NOREPINEPHRINE BIT/0.9 % NACL 4 mg in 250 mls @ 15 mls/hr 02/10/17 06:26 11/ 19/17 07:39 Levophed 4 Mg/ 250 Ml Ns Premixed IV 0 mcg/min .[id number] PRN 0 mls/hr TITRATE PER MD ORDER Titration Protocol 4 MCG/MIN Azithromycin 500 mg in 250 mls @ 167 mls/hr 02/10/17 10:00 02/11/17 09:00 Zithromax 500mg In Ns IVPB 167 mls/hr DAILY ROXI Administration Protocol Vasopressin 20 units/ Dextrose 101 mls @ 9.09 mls/hr 02/10/17 08:15 02/10/17 09:00 IV 9.09 mls/hr .[id number] ROXI Administration Protocol 0.03 U/MIN Insulin Human Regular 0 units 02/10/17 07:30 02/11/17 11:25 Humulin R Med SC Not Given ACHS [facility] Protocol Midazolam HCl 5 mg 02/10/17 08:35 Versed Inj IVP Q4H PRN Agitation Mupirocin 0 gm 02/11/17 18:00 Bactroban Ointment NS 02/16/17 10:01 BID ROXI Pantoprazole Sodium 40 mg 02/10/17 06:00 02/11/17 05:13 Protonix Ec Tab PO 40 mg 0600 ROXI Administration Polysaccharide Iron Complex 150 mg 02/11/17 13:00 Ferrex-150 PO DAILY [facility] - Patient Studies Lab Studies: Microbiology Studies 02/10/17 00:30 MRSA Culture (Admit) - Final Nose MRSA DETECTED 02/09/17 22:50 Urine Culture - Preliminary Urine,Clean Catch Gram Negative Nakul 02/10/17 08:20 Blood Culture - Preliminary Blood-Thru Central Line NO GROWTH AFTER 24 HOURS Lab Studies 02/11/17 02/11/17 02/11/17 Range/Units 13:10 06:15 06:15 WBC 11.1 H (4.5-11.0) 10^3/ul RBC 2.84 L (3.5-6.1) 10^6/uL Hgb 8.0 L (12.0-16.0) g/dL Hct 25.3 L (36.0-48.0) % MCV 89.1 (80.0-105.0) fl MCH 28.2 (25.0-35.0) pg MCHC 31.6 (31.0-37.0) g/dl RDW 15.2 H (11.5-14.5) % Plt Count 115 L (120.0-450.0) 10^3/uL MPV 12.0 H (7.0-11.0) fl Gran % 85.1 H (50.0-68.0) % Lymph % (Auto) 9.9 L (22.0-35.0) % [place] % (Auto) 4.8 (1.0-6.0) % Eos % (Auto) 0.1 L (1.5-5.0) % Baso % (Auto) 0.1 (0.0-3.0) % Gran # 9.48 H (1.4-6.5) Lymph # 1.1 L (1.2-3.4) [place] # 0.5 (0.1-0.6) Eos # 0.0 (0.0-0.7) Baso # 0.01 (0.0-2.0) K/mm3 Sodium 141 (132-148) mmol/L Potassium 3.8 (3.6-5.0) mmol/L Chloride 109 H (98-107) mmol/L Carbon Dioxide 24 (21-33) mmol/L Anion Gap 12 (10-20) BUN 53 H (7-21) mg/dL Creatinine 3.0 H (0.7-1.2) mg/dl Est GFR ( Amer) 21 Est GFR (Non-Af Amer) 17 POC Glucose (mg/dL) (65-110) mg/dL Random Glucose 140 H (70-110) mg/dL Calcium 7.6 L (8.4-10.5) mg/dL Phosphorus 4.3 (2.5-4.5) mg/dL Magnesium 2.5 H (1.7-2.2) mg/dL Ferritin ng/mL Total Bilirubin 0.5 (0.2-1.3) mg/dL AST 33 (14-36) U/L ALT 17 (7-56) U/L Alkaline Phosphatase 93 (38-126) U/L Total Protein 7.5 (5.8-8.3) g/dL Albumin 3.0 (3.0-4.8) g/dL Globulin 4.4 gm/dL Albumin/Globulin Ratio 0.7 L (1.1-1.8) Vitamin B12 (239-931) pg/mL Folate ng/mL Procalcitonin (0.19-0.49) NG/ML Urine Eosinophils Ur Random Creatinine mg/dL Ur L.pneumophila Ag (NEGATIVE) 02/10/17 02/10/17 02/10/17 Range/Units 21:51 19:54 19:54 WBC (4.5-11.0) 10^3/ul RBC (3.5-6.1) 10^6/uL Hgb (12.0-16.0) g/dL Hct (36.0-48.0) % MCV (80.0-105.0) fl MCH (25.0-35.0) pg MCHC (31.0-37.0) g/dl RDW (11.5-14.5) % Plt Count (120.0-450.0) 10^3/uL MPV (7.0-11.0) fl Gran % (50.0-68.0) % Lymph % (Auto) (22.0-35.0) % [place] % (Auto) (1.0-6.0) % Eos % (Auto) (1.5-5.0) % Baso % (Auto) (0.0-3.0) % Gran # (1.4-6.5) Lymph # (1.2-3.4) [place] # (0.1-0.6) Eos # (0.0-0.7) Baso # (0.0-2.0) K/mm3 Sodium (132-148) mmol/L Potassium (3.6-5.0) mmol/L Chloride (98-107) mmol/L Carbon Dioxide (21-33) mmol/L Anion Gap (10-20) BUN (7-21) mg/dL Creatinine (0.7-1.2) mg/dl Est GFR ( Amer) Est GFR (Non-Af Amer) POC Glucose (mg/dL) 116 H (65-110) mg/dL Random Glucose (70-110) mg/dL Calcium (8.4-10.5) mg/dL Phosphorus (2.5-4.5) mg/dL Magnesium (1.7-2.2) mg/dL Ferritin ng/mL Total Bilirubin (0.2-1.3) mg/dL AST (14-36) U/L ALT (7-56) U/L Alkaline Phosphatase (38-126) U/L Total Protein (5.8-8.3) g/dL Albumin (3.0-4.8) g/dL Globulin gm/dL Albumin/Globulin Ratio (1.1-1.8) Vitamin B12 (239-931) pg/mL Folate ng/mL Procalcitonin (0.19-0.49) NG/ML Urine Eosinophils Negative Ur Random Creatinine 81 mg/dL Ur L.pneumophila Ag (NEGATIVE) 02/10/17 02/10/17 02/10/17 Range/Units 16:09 11:06 07:25 WBC (4.5-11.0) 10^3/ul RBC (3.5-6.1) 10^6/uL Hgb (12.0-16.0) g/dL Hct (36.0-48.0) % MCV (80.0-105.0) fl MCH (25.0-35.0) pg MCHC (31.0-37.0) g/dl RDW (11.5-14.5) % Plt Count (120.0-450.0) 10^3/uL MPV (7.0-11.0) fl Gran % (50.0-68.0) % Lymph % (Auto) (22.0-35.0) % [place] % (Auto) (1.0-6.0) % Eos % (Auto) (1.5-5.0) % Baso % (Auto) (0.0-3.0) % Gran # (1.4-6.5) Lymph # (1.2-3.4) [place] # (0.1-0.6) Eos # (0.0-0.7) Baso # (0.0-2.0) K/mm3 Sodium (132-148) mmol/L Potassium (3.6-5.0) mmol/L Chloride (98-107) mmol/L Carbon Dioxide (21-33) mmol/L Anion Gap (10-20) BUN (7-21) mg/dL Creatinine (0.7-1.2) mg/dl Est GFR ( Amer) Est GFR (Non-Af Amer) POC Glucose (mg/dL) 182 H 121 H 101 (65-110) mg/dL Random Glucose (70-110) mg/dL Calcium (8.4-10.5) mg/dL Phosphorus (2.5-4.5) mg/dL Magnesium (1.7-2.2) mg/dL Ferritin ng/mL Total Bilirubin (0.2-1.3) mg/dL AST (14-36) U/L ALT (7-56) U/L Alkaline Phosphatase (38-126) U/L Total Protein (5.8-8.3) g/dL Albumin (3.0-4.8) g/dL Globulin gm/dL Albumin/Globulin Ratio (1.1-1.8) Vitamin B12 (239-931) pg/mL Folate ng/mL Procalcitonin (0.19-0.49) NG/ML Urine Eosinophils Ur Random Creatinine mg/dL Ur L.pneumophila Ag (NEGATIVE) 02/10/17 02/10/17 02/09/17 Range/Units 05:15 03:30 22:40 WBC (4.5-11.0) 10^3/ul RBC (3.5-6.1) 10^6/uL Hgb (12.0-16.0) g/dL Hct (36.0-48.0) % MCV (80.0-105.0) fl MCH (25.0-35.0) pg MCHC (31.0-37.0) g/dl RDW (11.5-14.5) % Plt Count (120.0-450.0) 10^3/uL MPV (7.0-11.0) fl Gran % (50.0-68.0) % Lymph % (Auto) (22.0-35.0) % [place] % (Auto) (1.0-6.0) % Eos % (Auto) (1.5-5.0) % Baso % (Auto) (0.0-3.0) % Gran # (1.4-6.5) Lymph # (1.2-3.4) [place] # (0.1-0.6) Eos # (0.0-0.7) Baso # (0.0-2.0) K/mm3 Sodium (132-148) mmol/L Potassium (3.6-5.0) mmol/L Chloride (98-107) mmol/L Carbon Dioxide (21-33) mmol/L Anion Gap (10-20) BUN (7-21) mg/dL Creatinine (0.7-1.2) mg/dl Est GFR ( Amer) Est GFR (Non-Af Amer) POC Glucose (mg/dL) (65-110) mg/dL Random Glucose (70-110) mg/dL Calcium (8.4-10.5) mg/dL Phosphorus (2.5-4.5) mg/dL Magnesium (1.7-2.2) mg/dL Ferritin 120.0 ng/mL Total Bilirubin (0.2-1.3) mg/dL AST (14-36) U/L ALT (7-56) U/L Alkaline Phosphatase (38-126) U/L Total Protein (5.8-8.3) g/dL Albumin (3.0-4.8) g/dL Globulin gm/dL Albumin/Globulin Ratio (1.1-1.8) Vitamin B12 916 (239-931) pg/mL Folate 7.7 ng/mL Procalcitonin 6.77 H (0.19-0.49) NG/ML Urine Eosinophils Ur Random Creatinine mg/dL Ur L.pneumophila Ag Negative (NEGATIVE) Laboratory Results - last 24 hr 02/09/17 02/10/17 02/10/17 22:40 03:30 05:15 WBC RBC Hgb Hct MCV MCH MCHC RDW Plt Count MPV Gran % Lymph % (Auto) [place] % (Auto) Eos % (Auto) Baso % (Auto) Gran # Lymph # [place] # Eos # Baso # Sodium Potassium Chloride Carbon Dioxide Anion Gap BUN Creatinine Est GFR ( Amer) Est GFR (Non-Af Amer) POC Glucose (mg/dL) Random Glucose Calcium Phosphorus Magnesium Ferritin 120.0 Total Bilirubin AST ALT Alkaline Phosphatase Total Protein Albumin Globulin Albumin/Globulin Ratio Vitamin B12 916 Folate 7.7 Procalcitonin 6.77 H Urine Eosinophils Ur Random Creatinine Ur L.pneumophila Ag Negative 02/10/17 02/10/17 02/10/17 07:25 11:06 16:09 WBC RBC Hgb Hct MCV MCH MCHC RDW Plt Count MPV Gran % Lymph % (Auto) [place] % (Auto) Eos % (Auto) Baso % (Auto) Gran # Lymph # [place] # Eos # Baso # Sodium Potassium Chloride Carbon Dioxide Anion Gap BUN Creatinine Est GFR ( Amer) Est GFR (Non-Af Amer) POC Glucose (mg/dL) 101 121 H 182 H Random Glucose Calcium Phosphorus Magnesium Ferritin Total Bilirubin AST ALT Alkaline Phosphatase Total Protein Albumin Globulin Albumin/Globulin Ratio Vitamin B12 Folate Procalcitonin Urine Eosinophils Ur Random Creatinine Ur L.pneumophila Ag 02/10/17 02/10/17 02/10/17 19:54 19:54 21:51 WBC RBC Hgb Hct MCV MCH MCHC RDW Plt Count MPV Gran % Lymph % (Auto) [place] % (Auto) Eos % (Auto) Baso % (Auto) Gran # Lymph # [place] # Eos # Baso # Sodium Potassium Chloride Carbon Dioxide Anion Gap BUN Creatinine Est GFR ( Amer) Est GFR (Non-Af Amer) POC Glucose (mg/dL) 116 H Random Glucose Calcium Phosphorus Magnesium Ferritin Total Bilirubin AST ALT Alkaline Phosphatase Total Protein Albumin Globulin Albumin/Globulin Ratio Vitamin B12 Folate Procalcitonin Urine Eosinophils Negative Ur Random Creatinine 81 Ur L.pneumophila Ag 02/11/17 02/11/17 02/11/17 06:15 06:15 13:10 WBC 11.1 H RBC 2.84 L Hgb 8.0 L Hct 25.3 L MCV 89.1 MCH 28.2 MCHC 31.6 RDW 15.2 H Plt Count 115 L MPV 12.0 H Gran % 85.1 H Lymph % (Auto) 9.9 L [place] % (Auto) 4.8 Eos % (Auto) 0.1 L Baso % (Auto) 0.1 Gran # 9.48 H Lymph # 1.1 L [place] # 0.5 Eos # 0.0 Baso # 0.01 Sodium 141 Potassium 3.8 Chloride 109 H Carbon Dioxide 24 Anion Gap 12 BUN 53 H Creatinine 3.0 H Est GFR ( Amer) 21 Est GFR (Non-Af Amer) 17 POC Glucose (mg/dL) Random Glucose 140 H Calcium 7.6 L Phosphorus 4.3 Magnesium 2.5 H Ferritin Total Bilirubin 0.5 AST 33 ALT 17 Alkaline Phosphatase 93 Total Protein 7.5 Albumin 3.0 Globulin 4.4 Albumin/Globulin Ratio 0.7 L Vitamin B12 Folate Procalcitonin Urine Eosinophils Ur Random Creatinine Ur L.pneumophila Ag Critical Care Progress Note - Nutrition Nutrition: Nutrition Category Date Time Status Heart Healthy Diet [DIET] Diets 02/10/17 Dinner Ordered Attending/Attestation - Attestation I have personally seen and examined this patient.: Yes I have fully participated in the care of the patient.: Yes I have reviewed all pertinent clinical information: Yes Notes (Text): 02/11/17 14:49 36 yo HIV female with severe CAP complicated by septic shock with MEJIA, encephalopathy, GPC (in chains) bacteremia, now fluid resuscitated, off of norepinephrine, will start tapering stress dose steroids and D/c vasopressin. MEJIA significantly improved, patient tolerates oral nutrition. DVT/GI prophylaxis , will continue ceftriaxone, will discuss stopping azithromycin with ID service (GPC in chains in the blood--Strep pneumo?). ccm time 40 min
[2017-02-11 13:49] LABS: MAGNESIUM 2.5 mg/dL (1.7-2.2); PHOSPHOROUS 4.3 mg/dL (2.5-4.5)
[2017-02-11] MEDS: Iron Complex Polysacch 150mg Cap PO SCH (17:08)
--- NOTE | 2017-02-11 18:49 | PN ---
DATE: SUBJECTIVE: The patient is currently seen in CCU bed 2. She is presently off pressors and off vasopressin and Levophed. She remains on IV antibiotic therapy. Blood cultures are positive for gram-positive cocci, urine cultures are positive for gram-negative rods. The patient is being treated for an empiric pneumonia. Her creatinine has fallen from a high of 4.8 to 3.0. She has made a significant amount of urine over the last 24 hours. MEDICATIONS: Medication list reviewed. The patient is currently on Bactroban, DuoNeb, subcu heparin, insulin, Levophed was discontinued, Protonix, Rocephin, normal saline, Solu-Cortef, p.r.n. Tylenol, vasopressin was discontinued, Versed p.r.n., and Zithromax. OBJECTIVE: INTAKE/OUTPUT: Intake 3800, output 3400. VITAL SIGNS: Blood pressure is 100/58, temperature is 97.8, respiratory rate is 22, pulse of 93. Oxygen saturation is 97%. HEENT: Exam shows her to be normocephalic, atraumatic. Conjunctivae are pale. Sclerae are nonicteric. NECK: Supple. No neck vein distention. CHEST: Clear to auscultation and percussion with decreased breath sounds at the bases and scattered rhonchi. No wheezing. No rales. CARDIOVASCULAR: Shows a regular rate and rhythm with distant heart sounds. GASTROINTESTINAL: Abdomen is soft. Bowel sounds are normal. No tenderness on palpation. No masses appreciated. EXTREMITIES: Show no lower extremity cyanosis, clubbing or edema. She has diminished lower extremity pulses bilaterally. LABORATORY DATA AND IMAGING: Renal ultrasound was not done because her creatinine continues to fall. Last chest x-ray from 02/10/2017 was read as showing no acute pulmonary disease. However, her chest CT scan from admission was positive for a left lower lobe pneumonia with mediastinal lymph nodes. CBC; white blood cell count 11.1 down from 19.1, hemoglobin down to 8.0 from 9.7 with hydration, platelet count is 115,000. Chemistries, sodium 141, potassium 3.8, chloride is 109, CO2 is 24. BUN is 53, stable. Creatinine is down to 3.0 from 4.8. Glucose is 140. Calcium level was 7.6. Iron saturations were low at 7%. Liver enzymes are normal. Albumin is 3.0. Urinalysis showed white blood cells and bacteria. Again, urine C and S is positive for gram-negative rods, final isolation and sensitivity are pending. Urine eosinophils is negative. Urine sodium was 14 with a fractional excretion of sodium of less than 1%. Toxicology screen was positive for methadone. Blood cultures are positive for gram-positive cocci, final isolation and sensitivity are pending. ASSESSMENT: 1. Acute renal failure in the setting of hemodynamic instability, hypotension, likely acute tubular necrosis in the setting of a left lower lobe pneumonia, in the setting of patient immunocompromised with human immunodeficiency virus, on antiviral therapy. The patient also was noted to have a possible urinary tract infection and possible septicemia. Final cultures are pending. The patient will continue present antibiotic therapy. She is receiving IV fluid hydration. Her renal perfusion appears to be back to normal and her urine output has returned to normal. I expect to see continued improvement in her renal parameters over the next 24-48 hours. There is no evidence for acute interstitial nephritis, and it is unlikely that she has obstructive uropathy with her fall in creatinine. A renal ultrasound at this point in time had not been ordered. 2. Left lower lobe pneumonia. The patient continues on empiric antibiotic therapy. 3. Possible urinary tract infection, gram-negative rods in her urine; again being covered by empiric antibiotic therapy. 4. Septicemia with gram-positive cocci in the blood, final sensitivities are pending. 5. History of anemia. This is in part secondary to infection with bone marrow suppression, in part secondary to human immunodeficiency virus, and in part secondary to iron deficiency. In light of her potentially positive bacteremia, I will not start the patient on intravenous Venofer at this point in time. I will start the patient on oral iron therapy. 6. History of human immunodeficiency virus, at present HAART therapy is being held. 7. History of cigarette smoking and drug abuse. The patient is willing to seriously consider stopping cigarette smoking and curtailing her use of drugs. 8. Mild hypomagnesemia. Magnesium level was 1.5 yesterday, today's level is pending. 9. History of morbid obesity. PLAN: 1. Discussed with ICU staff in detail. Agree with decision to withdraw pressor support, Levophed and vasopressin. 2. Continue broad-spectrum antibiotic pending cultures. 3. Renal ultrasound can be ordered for any increase in her creatinine levels over the next 24-48 hours. 4. Continue to monitor accurate I's and O's. 5. Continue to avoid all nephrotoxic agents. 6. Appreciate Infectious Disease consult. Continue present empiric antibiotic therapy and determine the appropriate time to restart HAART. Greater than 35 minutes spent in the care of this patient. Cholo Mars MD
--- NOTE | 2017-02-11 20:31 | CP.PCM.PN ---
Subjective - Date & Time of Evaluation Date of Evaluation: 02/11/17 Time of Evaluation: 18:30 - Subjective Subjective: Infectious Disease Follow Up: February 11, 2017 36 yo female with SOB and lethargy. She has a history of HIV, depression, anxiety, and DM. The patient has a history of hemoptysis, shortness of breath, and cough. The patient states symptoms started 1 weeks ago. The patient states that she did relapse with heroin use (inhaled/snorted) 1 week ago. She does NOT want her family to know about her heroin relapse. The patient has had HIV for 16 years. [facility] in the [facility] ( [facility]). She states that she was told her numbers are good but she doesn't know her numbers. The patient does not know if the heroin was cut with any other substance. Feeling better today. Urine culture with gram negative rods >100,000 CFU/ml One blood culture with gram positive cocci in chains.. Objective - Vital Signs/Intake and Output Vital Signs (last 24 hours): Temp Pulse Resp BP Pulse Ox 98.5 F 87 23 125/91 H 97 02/11/17 16:56 02/11/17 19:50 02/11/17 19:50 02/11/17 17:00 02/11/17 19:50 Intake and Output: 02/11/17 02/12/17 18:59 06:59 Intake Total 2448 Output Total 1750 Balance 698 - Medications Medications: Current Medications Acetaminophen (Tylenol 325mg Tab) 650 mg PO Q6H PRN PRN Reason: Fever >100.4 F Albuterol/Ipratropium (Duoneb 3 Mg/0.5 Mg (3 Ml) Ud) 3 ml IH [id number] [facility] Last Admin: 02/11/17 13:57 Dose: 3 ml Albuterol/Ipratropium (Duoneb 3 Mg/0.5 Mg (3 Ml) Ud) 3 ml IH Q2H PRN PRN Reason: Shortness of Breath Heparin Sodium (Porcine) (Heparin) 5,000 units SC Q8 [facility] PRN Reason: Protocol Last Admin: 02/11/17 13:03 Dose: 5,000 units Hydrocortisone Sodium Succinate (Solu-Cortef) 50 mg IVP Q12H [facility] Last Admin: 02/11/17 16:33 Dose: Not Given Ceftriaxone Sodium (Rocephin 1 Gram Ivpb) 1 gm in 100 mls @ 100 mls/hr IVPB DAILY [facility] PRN Reason: Protocol Last Admin: 02/11/17 09:00 Dose: 100 mls/hr NOREPINEPHRINE BIT/0.9 % NACL (Levophed 4 Mg/ 250 Ml Ns Premixed) 4 mg in 250 mls @ 15 mls/hr IV .[id number] PRN; Protocol; 4 MCG/MIN PRN Reason: TITRATE PER MD ORDER Last Titration: 02/11/17 07:39 Dose: 0 mcg/min, 0 mls/hr Vasopressin 20 units/ Dextrose 101 mls @ 9.09 mls/hr IV .[id number] [facility]OXI; 0.03 U/MIN PRN Reason: Protocol Last Admin: 02/10/17 09:00 Dose: 9.09 mls/hr Insulin Human Regular (Humulin R Med) 0 units SC ACHS [facility] PRN Reason: Protocol Last Admin: 02/11/17 16:31 Dose: Not Given Midazolam HCl (Versed Inj) 5 mg IVP Q4H PRN PRN Reason: Agitation Midodrine (Proamatine) 10 mg PO TID [facility] Last Admin: 02/11/17 17:07 Dose: 10 mg Mupirocin (Bactroban Ointment) 0 gm NS BID [facility] Stop: 02/16/17 10:01 Last Admin: 02/11/17 17:08 Dose: 1 applic Pantoprazole Sodium (Protonix Ec Tab) 40 mg PO 0600 [facility] Last Admin: 02/11/17 05:13 Dose: 40 mg Polysaccharide Iron Complex (Ferrex-150) 150 mg PO DAILY [facility] Last Admin: 02/11/17 17:08 Dose: 150 mg - Labs Labs: 02/11/17 06:15 02/11/17 06:15 - Constitutional Appears: Toxic, No Acute Distress, Chronically Ill - Head Exam Head Exam: ATRAUMATIC, NORMOCEPHALIC - Eye Exam Eye Exam: EOMI, PERRL Pupil Exam: NORMAL ACCOMODATION, PERRL - ENT Exam ENT Exam: Mucous Membranes Moist, Normal External Ear Exam, TM's Normal Bilaterally - Neck Exam Neck Exam: Full ROM, Normal Inspection - Respiratory Exam Respiratory Exam: Decreased Breath Sounds, NORMAL BREATHING PATTERN. absent: Rales, Rhonchi, Wheezes - Cardiovascular Exam Cardiovascular Exam: Tachycardia, +S1, +S2 - GI/Abdominal Exam GI & Abdominal Exam: Normal Bowel Sounds. absent: Distended, Tenderness - Extremities Exam Extremities Exam: Full ROM, Normal Inspection - Neurological Exam Neurological Exam: Alert, Awake, CN II-XII Intact, Oriented x3 Additional comments: generally weak - Psychiatric Exam Psychiatric exam: Normal Affect, Normal Mood - Skin Skin Exam: Intact, Normal Color Assessment and Plan - Assessment and Plan (Free Text) Assessment: 36 yo morbidly obese female with HIV for the past 16 year (treated in [facility] at the [facility] site) presenting with hemoptysis, cough, and SOB. The patient states that she did relapse with her heroin use. The patient inhaled/snorted heroin one week ago and the symptoms started after that. Cannot rule out CAP, aspiration pneumonia, and/or chemical pneumonitis. The patient may need bronchoscopy if hemoptysis continues. Need to obtain the patient's CD4 and viral load. Should be retested in hospital as well as values obtained from her HIV clinic. The patient follows every 3-6 months with the clinic. Continue IV antibiotics with Rocephin and Azithromycin for now. May need to broaden coverage to Zosyn from Rocephin if fevers return and/or leukocytosis persists. However, afebrile and leukocytosis has been improving. Await culture identification of the urine culture and the blood culture. Supportive care. Thank you for allowing me to participate in the care of the patient, we will follow with you.
[2017-02-12] MEDS: Albuterol-Ipratrop 3 mg / 0.5 (3 ml) UD IH SCH ×4 (01:32→19:22)
[2017-02-12] MEDS: Pantoprazole 40 mg EC Tab PO SCH (05:32)
[2017-02-12 07:02] LABS: BASO # 0.03 K/mm3 (0.0-2.0); BASO % 0.3 % (0.0-3.0); EOS % 0.3 % (1.5-5.0); GRAN # 8.9 (1.4-6.5); HEMATOCRIT 26.8 % (36.0-48.0); LYMPH # 1.5 (1.2-3.4); LYMPH % 13.2 % (22.0-35.0); MEAN CELL VOLUME 90.2 fl (80.0-105.0); MEAN CORPUSCULAR HEMOGLOBIN 27.9 pg (25.0-35.0); MEAN PLATELET VOLUME 11.6 fl (7.0-11.0); MONO # 0.8 (0.1-0.6); MONO % 7.2 % (1.0-6.0); RED CELL DISTRIBUTION WIDTH 15.6 % (11.5-14.5); WHITE BLOOD COUNT 11.3 10^3/ul (4.5-11.0)
[2017-02-12] MEDS: Insulin Reg-MEDIUM-Coverage SC SCH ×4 (07:53→21:54)
[2017-02-12 08:32] LABS: ALB/GLOB RATIO 0.7 (1.1-1.8); BILIRUBIN,TOTAL 0.4 mg/dL (0.2-1.3); MAGNESIUM 2.3 mg/dL (1.7-2.2); PHOSPHOROUS 3.4 mg/dL (2.5-4.5); POTASSIUM 3.4 mmol/L (3.6-5.0); TOTAL PROTEIN 7.5 g/dL (5.8-8.3)
[2017-02-12] MEDS: cefTRIAXone 1 gm 1 GM/100 ML BAG IVPB SCH (10:14)
[2017-02-12] MEDS: Iron Complex Polysacch 150mg Cap PO SCH (10:14)
[2017-02-12] MEDS ORDERED: Vancomycin 1gm in NS 250ml 1 GM/250 ML BAG IVPB STA (10:42)
[2017-02-12] MEDS: Lactated Ringer's 1,000 ML IV SCH ×2 (10:59→20:41)
[2017-02-12] MEDS: POLYETHYLENE GLYCOL 3350 17 GM/Dose PACKET PO SCH ×3 (12:00→18:24)
--- NOTE | 2017-02-12 12:20 | CP.PCM.PN ---
Subjective - Date & Time of Evaluation Date of Evaluation: 02/12/17 Time of Evaluation: 08:00 - Subjective Subjective: Patient seen and examined, reports no major complaints, tolerated PO diet this rmoning. Off vasopressors, HD stable. Objective - Vital Signs/Intake and Output Vital Signs (last 24 hours): Temp Pulse Resp BP Pulse Ox 97.2 F L 87 16 112/66 97 02/12/17 04:16 02/12/17 10:00 02/12/17 09:00 02/12/17 08:00 02/12/17 09:00 Intake and Output: 02/12/17 02/12/17 06:59 18:59 Intake Total 400 Output Total 550 Balance -150 - Medications Medications: Current Medications Acetaminophen (Tylenol 325mg Tab) 650 mg PO Q6H PRN PRN Reason: Fever >100.4 F Albuterol/Ipratropium (Duoneb 3 Mg/0.5 Mg (3 Ml) Ud) 3 ml IH [id number] [facility] Last Admin: 02/12/17 07:49 Dose: 3 ml Albuterol/Ipratropium (Duoneb 3 Mg/0.5 Mg (3 Ml) Ud) 3 ml IH Q2H PRN PRN Reason: Shortness of Breath Heparin Sodium (Porcine) (Heparin) 5,000 units SC Q8 ROXI PRN Reason: Protocol Last Admin: 02/12/17 05:32 Dose: 5,000 units Hydrocortisone Sodium Succinate (Solu-Cortef) 50 mg IVP Q12H [facility] Last Admin: 02/12/17 03:16 Dose: 50 mg Ceftriaxone Sodium (Rocephin 1 Gram Ivpb) 1 gm in 100 mls @ 100 mls/hr IVPB DAILY [facility] PRN Reason: Protocol Last Admin: 02/12/17 10:14 Dose: 100 mls/hr Lactated Ringer's (Lactated Ringer's) 1,000 mls @ 100 mls/hr IV .Q10H [facility] Last Admin: 02/12/17 10:59 Dose: 100 mls/hr Insulin Human Regular (Humulin R Med) 0 units SC ACHS [facility] PRN Reason: Protocol Last Admin: 02/12/17 07:53 Dose: Not Given Midazolam HCl (Versed Inj) 5 mg IVP Q4H PRN PRN Reason: Agitation Midodrine (Proamatine) 10 mg PO TID [facility] Last Admin: 02/12/17 10:14 Dose: 10 mg Mupirocin (Bactroban Ointment) 0 gm NS BID [facility] Stop: 02/16/17 10:01 Last Admin: 02/12/17 10:13 Dose: 1 applic Naproxen (Anaprox Ds) 550 mg PO BID [facility] Pantoprazole Sodium (Protonix Ec Tab) 40 mg PO 0600 [facility] Last Admin: 02/12/17 05:32 Dose: 40 mg Polyethylene Glycol (Miralax) 17 gm PO BID [facility] Polysaccharide Iron Complex (Ferrex-150) 150 mg PO DAILY [facility] Last Admin: 02/12/17 10:14 Dose: 150 mg - Labs Labs: 02/12/17 06:00 02/12/17 06:00 - Constitutional Appears: Well, Non-toxic, No Acute Distress - Head Exam Head Exam: ATRAUMATIC - Eye Exam Eye Exam: EOMI - ENT Exam ENT Exam: Mucous Membranes Moist - Neck Exam Neck Exam: Full ROM - Respiratory Exam Respiratory Exam: Clear to Ausculation Bilateral, NORMAL BREATHING PATTERN - Cardiovascular Exam Cardiovascular Exam: REGULAR RHYTHM, +S1, +S2 - GI/Abdominal Exam GI & Abdominal Exam: Soft, Normal Bowel Sounds - Extremities Exam Extremities Exam: Full ROM - Neurological Exam Neurological Exam: Alert, Awake, Oriented x3 Assessment and Plan - Assessment and Plan (Free Text) Assessment: Patient is 36yo female with PMhx of HIV, Heroin abuse, a/w severe CAP, bacteremia - currnetly afebrile, HD stable, comfortable, off vasopressors - no major complaints - BCx with GPC in chains, ID following - no evidence of hemoptysis at this time Renal failure Severe CAP Bacteremia HIV Recommend: - supp o2 as needed - Cont with antibiotics as per ID, repeat cultures, follow up procalcitonin - Hold BP meds for now - cont with IVF LR at 100cc/hr - monitor Cr - check Ulytes - follow up nephrology - GI ppx - DVT ppx, SCDs - taper stress dose steroids - CD4 count, Viral load - Stable, transfer to floor
[2017-02-12] MEDS: Naproxen 550 mg Tab PO SCH ×2 (13:04→18:24)
--- NOTE | 2017-02-12 16:16 | CP.PCM.PN ---
<JaspalBuddy - Last Filed: 02/12/17 17:58> Subjective - Date & Time of Evaluation Date of Evaluation: 02/12/17 Time of Evaluation: 09:30 - Subjective Subjective: Pt s/e bedside. Pt states that she is feeling fine, but is still having L sided cp when she takes a deep breath (pleuritic cp). Pt feels her breathing is better. She states she would like her methadone. NO further complaints at this time. Objective - Vital Signs/Intake and Output Vital Signs (last 24 hours): Temp Pulse Resp BP Pulse Ox 98.7 F 89 22 118/67 97 02/12/17 14:00 02/12/17 14:00 02/12/17 14:00 02/12/17 14:00 02/12/17 14:00 Intake and Output: 02/12/17 02/12/17 06:59 18:59 Intake Total 400 Output Total 550 Balance -150 - Medications Medications: Current Medications Acetaminophen (Tylenol 325mg Tab) 650 mg PO Q6H PRN PRN Reason: Fever >100.4 F Albuterol/Ipratropium (Duoneb 3 Mg/0.5 Mg (3 Ml) Ud) 3 ml IH [id number] [facility] Last Admin: 02/12/17 13:35 Dose: 3 ml Albuterol/Ipratropium (Duoneb 3 Mg/0.5 Mg (3 Ml) Ud) 3 ml IH Q2H PRN PRN Reason: Shortness of Breath Heparin Sodium (Porcine) (Heparin) 5,000 units SC Q8 [facility] PRN Reason: Protocol Last Admin: 02/12/17 05:32 Dose: 5,000 units Hydrocortisone Sodium Succinate (Solu-Cortef) 50 mg IVP Q12H [facility] Last Admin: 02/12/17 03:16 Dose: 50 mg Ceftriaxone Sodium (Rocephin 1 Gram Ivpb) 1 gm in 100 mls @ 100 mls/hr IVPB DAILY [facility] PRN Reason: Protocol Last Admin: 02/12/17 10:14 Dose: 100 mls/hr Lactated Ringer's (Lactated Ringer's) 1,000 mls @ 100 mls/hr IV .Q10H [facility] Last Admin: 02/12/17 10:59 Dose: 100 mls/hr Insulin Human Regular (Humulin R Med) 0 units SC ACHS [facility] PRN Reason: Protocol Last Admin: 02/12/17 13:03 Dose: Not Given Midazolam HCl (Versed Inj) 5 mg IVP Q4H PRN PRN Reason: Agitation Midodrine (Proamatine) 10 mg PO TID [facility] Last Admin: 02/12/17 10:14 Dose: 10 mg Mupirocin (Bactroban Ointment) 0 gm NS BID [facility] Stop: 02/16/17 10:01 Last Admin: 02/12/17 10:13 Dose: 1 applic Naproxen (Anaprox Ds) 550 mg PO BID [facility] Last Admin: 02/12/17 13:04 Dose: 550 mg Pantoprazole Sodium (Protonix Ec Tab) 40 mg PO 0600 [facility] Last Admin: 02/12/17 05:32 Dose: 40 mg Polyethylene Glycol (Miralax) 17 gm PO BID [facility] Last Admin: 02/12/17 12:00 Dose: Not Given Polysaccharide Iron Complex (Ferrex-150) 150 mg PO DAILY [facility] Last Admin: 02/12/17 10:14 Dose: 150 mg - Labs Labs: 02/12/17 06:00 02/12/17 06:00 - Additional Findings Additional findings: Phys Exam: VS as below Const'l: a&o x 4, nad, obese woman Head/Neck: neck supple, no jvd, trachea midline, carotid midline, no cervical /head mass Eyes: nj, nonicteric sclera, eom intact ENT: auditory acuity grossly intact, throat not congested, no nasal deformity Cardio: rrr, no m/r/g, no carotid bruit, nml s1, s2 Pulm: +left sided decreased breath sounds; no accessory muscle use;l nml breath sounds bilaterally, ctab Abd: s/nt/nd, nbs x 4 q, no palpable masses Derm: no rashes, no ulcers, no lesions Extr: no edema, no cyanosis, no calf tenderness, no lesions, no varicosities Neuro: cn II-XII grossly intact, ue and le 5/5 muscle strength bilaterally, no los ue, le bilaterally and core Assessment and Plan - Assessment and Plan (Free Text) Assessment: A/P Patient is a 36 y/o F with PMH of HIV, drug abuse (on methadone), NIDDM2, morbidly obese whom presented with shortness of breath and was found to have septic Sock due to pneumonia superimposed with UTI with multi organ dysfunction. Septic shock due to pneumonia r/o pcp, and UTI. - S/p 3 litters of NS - Now on levophed drip to maintain MAP above 65. - Leukocytosis trending down, and patient was febrile with tmax of 101.4. - Pt no longer needs ICU care - see below for ID recs Hypoxemic respiratory distress due to pneumonia versus pcp. - Less likely PE, although D-dimer was elevated, most likely due to parenchymal lung disease/pna - Pro-bnp was also elevated - ECHO: 55% EF, but Grade I abnormal relaxation pattern - Nasal cannula to maintain O2 saturation above 90%. - Head of bead above 35 degrees. Normocytic anemia- likely dilution versus CKD versus anemia of chronic disease in the setting HIV versus sepsis. - No active bleeding noted - Will obtain anemia work up, and retic count * Retic count: 1.84 * MCV: Normal * Given these findings, most likely ACD. - Will continue to monitor for now and transfuse if below 7, or continues to be hemodynamically unstable Thrombocytopenia likely due to sepsis/septic shock versus HIV status - Improving - No signs of active bleeding - Will monitor for now MEJIA - Less likely post renal - patient is able to void. - R/o intrinsic, versus pre-renal in the setting of septic shock and HIV - Urine lytes were sent - Strict I&Os. - Consider renal U/S - Nephrology consulted: Recs appreciated Hypokalemia - Will replete, and will obtain magnesium level HIV with unknown status - CD4 count, viral loads were ordered, pending - Patient reported she is on Prezista/Decovy/Norvir therapy, however there's a concern for IRIS due to questionable compliance issues and current presentation. Unable to reach patient's HIV provider Vidal Varma. - ID consulted: * CAP VS Aspiration PNA VS Chemical pneumonitis * May need bronchoscopy if hemoptysis continues * Continue Rocephin and Azithromycin for now - may need to upgrade to Zosyn if she becomes febrile again or leukocytosis persists. NIDDM - Continue with insulin sliding scale and fingersticks Q6 hrs. H/o drug abuse - Consent sent to methadone clinic at [facility], phone # [phone] pending response. - Called today, they were already closed - will call tomorrow, business hours are 7A-2P DVT and GI PPXHS - Heparin - Protonix <Ivy Walsh B - Last Filed: 02/13/17 14:20> Objective - Vital Signs/Intake and Output Vital Signs (last 24 hours): Temp Pulse Resp BP Pulse Ox 97.7 F 83 20 121/77 99 02/13/17 08:12 02/13/17 08:12 02/13/17 08:12 02/13/17 08:12 02/13/17 08:12 Intake and Output: 02/13/17 02/13/17 06:59 18:59 Intake Total 1080 Balance 1080 - Medications Medications: Current Medications Acetaminophen (Tylenol 325mg Tab) 650 mg PO Q6H PRN PRN Reason: Fever >100.4 F Albuterol/Ipratropium (Duoneb 3 Mg/0.5 Mg (3 Ml) Ud) 3 ml IH [id number] [facility] Last Admin: 02/13/17 07:11 Dose: 3 ml Albuterol/Ipratropium (Duoneb 3 Mg/0.5 Mg (3 Ml) Ud) 3 ml IH Q2H PRN PRN Reason: Shortness of Breath Heparin Sodium (Porcine) (Heparin) 5,000 units SC Q8 [facility] PRN Reason: Protocol Last Admin: 02/13/17 13:30 Dose: 5,000 units Hydrocortisone Sodium Succinate (Solu-Cortef) 50 mg IVP Q12H [facility] Last Admin: 02/13/17 03:46 Dose: Not Given Ceftriaxone Sodium (Rocephin 1 Gram Ivpb) 1 gm in 100 mls @ 100 mls/hr IVPB DAILY [facility] PRN Reason: Protocol Last Admin: 02/13/17 09:54 Dose: 100 mls/hr Lactated Ringer's (Lactated Ringer's) 1,000 mls @ 100 mls/hr IV .Q10H [facility] Last Admin: 02/13/17 06:53 Dose: 100 mls/hr Insulin Human Regular (Humulin R Med) 0 units SC ACHS [facility] PRN Reason: Protocol Last Admin: 02/13/17 12:31 Dose: Not Given Midazolam HCl (Versed Inj) 5 mg IVP Q4H PRN PRN Reason: Agitation Midodrine (Proamatine) 10 mg PO TID [facility] Last Admin: 02/13/17 13:29 Dose: 10 mg Mupirocin (Bactroban Ointment) 0 gm NS BID [facility] Stop: 02/16/17 10:01 Last Admin: 02/13/17 09:56 Dose: 1 applic Naproxen (Anaprox Ds) 550 mg PO BID [facility] Last Admin: 02/13/17 09:57 Dose: 550 mg Pantoprazole Sodium (Protonix Ec Tab) 40 mg PO 0600 [facility] Last Admin: 02/13/17 06:53 Dose: 40 mg Polyethylene Glycol (Miralax) 17 gm PO BID [facility] Last Admin: 02/13/17 09:55 Dose: 17 gm Polysaccharide Iron Complex (Ferrex-150) 150 mg PO DAILY [facility] Last Admin: 02/13/17 09:57 Dose: 150 mg - Labs Labs: 02/13/17 06:30 02/13/17 06:30 Attending/Attestation - Attestation I have personally seen and examined this patient.: Yes I have fully participated in the care of the patient.: Yes I have reviewed all pertinent clinical information, including history, physical exam and plan: Yes Notes (Text): I have seen and examined the patient at bedside. Agree with the above note with the following additions/ exceptions: Briefly this is 36 year old female with PMH of HIV, drug abuse (on methadone), DM- 2, morbidly obese who recently relapsed on heroin is admitted with shortness of breath and was found to have sepsis Shock due to pneumonia, UTI, renal insufficiency due to ATN. Patient is off of pressors and is on tapering dose of steroids. Patient is still coughing however she is able to talk without any distress. Continue duonebs, Rocephin and Zithromax. Blood cultures are growing GPC. Urine culture is growing proteus. CD4 and viral load pending. As per patient she is compliant with her HIV medications. She has anemia of chronic disease. Methadone dosage was confirmed and was restarted. Renal function is improving. Echo revealed EF55% and diastolic dysfunction. Recommended to have a repeat echo as an outpatient. Also recommended to have sleep study as an outpatient. Upon discharge patient will follow up with Dr Rl Cardenas. Dr Ivy Walsh
--- NOTE | 2017-02-12 19:23 | PN ---
DATE: 02/12/2017 SUBJECTIVE: The patient is seen in the ICU. She is sitting in chair. She complains of cough. She complains of shortness of breath. She complains of chest pain with deep breathing. She complains of chest pain with coughing. She also complains of some chills. PHYSICAL EXAMINATION GENERAL: Morbidly obese young woman sitting in chair in the ICU. VITAL SIGNS: Blood pressure /67, heart rate 89, respiratory rate 22, temperature 98.7. HEENT: Normocephalic, atraumatic, positive pallor. NECK: Supple, no JVD. LUNGS: Bilateral rhonchi, distant breath sounds. No crackles appreciated. CARDIAC: S1 and S2. Regular rate and rhythm. No murmur, no rub. ABDOMEN: Obese, distended, soft, nontender, bowel sounds present. EXTREMITIES: Trace lower extremity edema. INTAKE AND OUTPUT: 2848/2300. LABORATORY DATA: WBC 11.3, hemoglobin 8.3, hematocrit 27 and platelets 149. Sodium 143, potassium 3.4, chloride 104, CO2 of 26, BUN 46, creatinine 2.4. Glucose 97, calcium 8.4, phosphorus 3.4, magnesium 2.3. AST 33, ALT 24, albumin 3.0. Urine sodium 14, urine creatinine 81, osmolality 344, eosinophils negative. Urine Legionella antigen negative. Blood culture, gram-positive cocci. Urine culture, Proteus. CURRENT MEDICATIONS: Anaprox, Bactroban, DuoNeb, iron, heparin, insulin, Ringer's lactate, MiraLax, ProAmatine, Rocephin 1 g daily, Solu-Cortef, Tylenol, Versed. Levophed discontinued, normal saline discontinued. Vancomycin 1 g given this morning. ASSESSMENT: 1. Acute renal failure in the setting of hypotension, suspected acute tubular necrosis. Concomitant left lower lobe pneumonia, human immunodeficiency virus. At present, renal function seems to be improving. Creatinine has improved from peak of 5.0 to 2.4. 2. Left lower lobe pneumonia. 3. Proteus urinary tract infection. 4. Staphylococcus bacteremia. 5. Anemia. 6. Human immunodeficiency virus, on outpatient HAART therapy. 7. History of smoking and drug abuse. 8. Morbid obesity. PLAN: 1. The patient is off pressors now, continue IV fluids. 2. Continue antibiotics as per ID recommendations. 3. Continue to monitor daily labs. 4. Monitor I's and O's closely. 5. Avoid nephrotoxins. 6. Okay to restart HAART therapy as per renal standpoint. Case discussed with ICU staff at length, case discussed with ICU resident. More than 35 minutes spent in the care of this critically ill patient. Brook Antonio MD
--- NOTE | 2017-02-12 20:10 | CP.PCM.PN ---
Subjective - Date & Time of Evaluation Date of Evaluation: 02/12/17 Time of Evaluation: 14:30 - Subjective Subjective: Infectious Disease Follow Up: February 12, 2017 36 yo female with SOB and lethargy. She has a history of HIV, depression, anxiety, and DM. The patient has a history of hemoptysis, shortness of breath, and cough. The patient states symptoms started 1 weeks ago. The patient states that she did relapse with heroin use (inhaled/snorted) 1 week ago. She does NOT want her family to know about her heroin relapse. The patient has had HIV for 16 years. [facility] ( [facility] She states that she was told her numbers are good but she doesn't know her numbers. The patient does not know if the heroin was cut with any other substance. Feeling better today. Urine culture with gram negative rods >100,000 CFU/ml... identified as Proteus One blood culture from admission with gram positive cocci in chains. A second blood culture taken the next day shows gram positive cocci in chains again. Objective - Vital Signs/Intake and Output Vital Signs (last 24 hours): Temp Pulse Resp BP Pulse Ox 98.7 F 89 22 118/67 97 02/12/17 14:00 02/12/17 14:00 02/12/17 14:00 02/12/17 14:00 02/12/17 14:00 - Medications Medications: Current Medications Acetaminophen (Tylenol 325mg Tab) 650 mg PO Q6H PRN PRN Reason: Fever >100.4 F Albuterol/Ipratropium (Duoneb 3 Mg/0.5 Mg (3 Ml) Ud) 3 ml IH [id number] [facility] Last Admin: 02/12/17 19:22 Dose: 3 ml Albuterol/Ipratropium (Duoneb 3 Mg/0.5 Mg (3 Ml) Ud) 3 ml IH Q2H PRN PRN Reason: Shortness of Breath Heparin Sodium (Porcine) (Heparin) 5,000 units SC Q8 [facility] PRN Reason: Protocol Last Admin: 02/12/17 15:00 Dose: 5,000 units Hydrocortisone Sodium Succinate (Solu-Cortef) 50 mg IVP Q12H [facility] Last Admin: 02/12/17 15:11 Dose: 50 mg Ceftriaxone Sodium (Rocephin 1 Gram Ivpb) 1 gm in 100 mls @ 100 mls/hr IVPB DAILY [facility] PRN Reason: Protocol Last Admin: 02/12/17 10:14 Dose: 100 mls/hr Lactated Ringer's (Lactated Ringer's) 1,000 mls @ 100 mls/hr IV .Q10H [facility] Last Admin: 02/12/17 10:59 Dose: 100 mls/hr Insulin Human Regular (Humulin R Med) 0 units SC ACHS [facility] PRN Reason: Protocol Last Admin: 02/12/17 16:53 Dose: Not Given Midazolam HCl (Versed Inj) 5 mg IVP Q4H PRN PRN Reason: Agitation Midodrine (Proamatine) 10 mg PO TID [facility] Last Admin: 02/12/17 18:24 Dose: 10 mg Mupirocin (Bactroban Ointment) 0 gm NS BID [facility] Stop: 02/16/17 10:01 Last Admin: 02/12/17 18:24 Dose: 1 applic Naproxen (Anaprox Ds) 550 mg PO BID [facility] Last Admin: 02/12/17 18:24 Dose: 550 mg Pantoprazole Sodium (Protonix Ec Tab) 40 mg PO 0600 [facility] Last Admin: 02/12/17 05:32 Dose: 40 mg Polyethylene Glycol (Miralax) 17 gm PO BID [facility] Last Admin: 02/12/17 18:24 Dose: 17 gm Polysaccharide Iron Complex (Ferrex-150) 150 mg PO DAILY [facility] Last Admin: 02/12/17 10:14 Dose: 150 mg - Labs Labs: 02/12/17 06:00 02/12/17 06:00 - Constitutional Appears: Non-toxic, No Acute Distress, Chronically Ill - Head Exam Head Exam: ATRAUMATIC, NORMOCEPHALIC - Eye Exam Eye Exam: EOMI, PERRL Pupil Exam: NORMAL ACCOMODATION, PERRL - ENT Exam ENT Exam: Mucous Membranes Moist, Normal External Ear Exam, TM's Normal Bilaterally - Neck Exam Neck Exam: Full ROM, Normal Inspection - Respiratory Exam Respiratory Exam: Decreased Breath Sounds, NORMAL BREATHING PATTERN. absent: Rales, Rhonchi, Wheezes - Cardiovascular Exam Cardiovascular Exam: Tachycardia, +S1, +S2 - GI/Abdominal Exam GI & Abdominal Exam: Normal Bowel Sounds. absent: Distended, Tenderness - Extremities Exam Extremities Exam: Full ROM, Normal Inspection - Neurological Exam Neurological Exam: Alert, Awake, CN II-XII Intact, Oriented x3 Additional comments: generally weak - Psychiatric Exam Psychiatric exam: Normal Affect, Normal Mood - Skin Skin Exam: Intact, Normal Color Assessment and Plan - Assessment and Plan (Free Text) Assessment: 36 yo morbidly obese female with HIV for the past 16 year (treated in [facility] at the [facility] site) presenting with hemoptysis, cough, and SOB. The patient states that she did relapse with her heroin use. The patient inhaled/snorted heroin one week ago and the symptoms started after that. Cannot rule out CAP, aspiration pneumonia, and/or chemical pneumonitis. The patient may need bronchoscopy if hemoptysis continues. Need to obtain the patient's CD4 and viral load. Should be retested in hospital as well as values obtained from her HIV clinic. The patient follows every 3-6 months with the clinic. Continue IV antibiotics with Rocephin and Azithromycin for now. May need to broaden coverage to Zosyn from Rocephin if fevers return and/or leukocytosis persists. However, afebrile and leukocytosis has been improving. Await culture identification of the urine culture and the blood culture. Blood cultures taken a day after admission is showing gram positive cocci in chains. Added Vancomycin IV. UTI with proteus sensitive to Rocephin. Supportive care. Thank you for allowing me to participate in the care of the patient, we will follow with you.
[2017-02-13] MEDS: Albuterol-Ipratrop 3 mg / 0.5 (3 ml) UD IH SCH ×4 (01:34→20:05)
[2017-02-13] MEDS: Pantoprazole 40 mg EC Tab PO SCH (06:53)
[2017-02-13] MEDS: Lactated Ringer's 1,000 ML IV SCH ×2 (06:53→18:35)
[2017-02-13 07:05] LABS: BASO # 0.07 K/mm3 (0.0-2.0); BASO % 0.8 % (0.0-3.0); EOS % 0.4 % (1.5-5.0); GRAN # 6.28 (1.4-6.5); GRAN % 68.9 % (50.0-68.0); HEMATOCRIT 28.7 % (36.0-48.0); LYMPH % 22.1 % (22.0-35.0); MEAN CELL VOLUME 90.8 fl (80.0-105.0); MEAN CORPUSCULAR HEMOGLOBIN 27.8 pg (25.0-35.0); MEAN CORPUSCULAR HGB CONC 30.7 g/dl (31.0-37.0); MEAN PLATELET VOLUME 11.4 fl (7.0-11.0); MONO # 0.7 (0.1-0.6); MONO % 7.8 % (1.0-6.0); RED CELL DISTRIBUTION WIDTH 15.5 % (11.5-14.5); WHITE BLOOD COUNT 9.1 10^3/ul (4.5-11.0)
[2017-02-13] MEDS: Insulin Reg-MEDIUM-Coverage SC SCH ×4 (07:31→22:38)
[2017-02-13 07:38] LABS: ALB/GLOB RATIO 0.7 (1.1-1.8); BILIRUBIN,TOTAL 0.5 mg/dL (0.2-1.3); CALCIUM 8.1 mg/dL (8.4-10.5); POTASSIUM 3.6 mmol/L (3.6-5.0); TOTAL PROTEIN 7.3 g/dL (5.8-8.3)
[2017-02-13] MEDS: cefTRIAXone 1 gm 1 GM/100 ML BAG IVPB SCH (09:54)
[2017-02-13] MEDS: POLYETHYLENE GLYCOL 3350 17 GM/Dose PACKET PO SCH ×3 (09:55→18:36)
[2017-02-13] MEDS: Iron Complex Polysacch 150mg Cap PO SCH (09:57)
[2017-02-13] MEDS: Naproxen 550 mg Tab PO SCH ×2 (09:57→18:33)
--- NOTE | 2017-02-13 14:22 | CP.PCM.PN ---
<JaspalBuddy - Last Filed: 02/13/17 14:18> Subjective - Date & Time of Evaluation Date of Evaluation: 02/13/17 Time of Evaluation: 11:40 - Subjective Subjective: Pt s/e bedside. Pt states that she is feeling fine, but is still having L sided cp when she takes a deep breath (pleuritic cp). Pt feels her breathing is better. Pt got her methadone today. Her primary care was called for dosages on her HAART tx - awaiting response. NO further complaints at this time. Objective - Vital Signs/Intake and Output Vital Signs (last 24 hours): Temp Pulse Resp BP Pulse Ox 97.7 F 83 20 121/77 99 02/13/17 08:12 02/13/17 08:12 02/13/17 08:12 02/13/17 08:12 02/13/17 08:12 Intake and Output: 02/13/17 02/13/17 06:59 18:59 Intake Total 1080 Balance 1080 - Medications Medications: Current Medications Acetaminophen (Tylenol 325mg Tab) 650 mg PO Q6H PRN PRN Reason: Fever >100.4 F Albuterol/Ipratropium (Duoneb 3 Mg/0.5 Mg (3 Ml) Ud) 3 ml IH [id number] [facility] Last Admin: 02/13/17 07:11 Dose: 3 ml Albuterol/Ipratropium (Duoneb 3 Mg/0.5 Mg (3 Ml) Ud) 3 ml IH Q2H PRN PRN Reason: Shortness of Breath Heparin Sodium (Porcine) (Heparin) 5,000 units SC Q8 ROXI PRN Reason: Protocol Last Admin: 02/13/17 13:30 Dose: 5,000 units Hydrocortisone Sodium Succinate (Solu-Cortef) 25 mg IVP Q12H [facility] Ceftriaxone Sodium (Rocephin 1 Gram Ivpb) 1 gm in 100 mls @ 100 mls/hr IVPB DAILY [facility] PRN Reason: Protocol Last Admin: 02/13/17 09:54 Dose: 100 mls/hr Lactated Ringer's (Lactated Ringer's) 1,000 mls @ 100 mls/hr IV .Q10H [facility] Last Admin: 02/13/17 06:53 Dose: 100 mls/hr Insulin Human Regular (Humulin R Med) 0 units SC ACHS [facility] PRN Reason: Protocol Last Admin: 02/13/17 12:31 Dose: Not Given Midazolam HCl (Versed Inj) 5 mg IVP Q4H PRN PRN Reason: Agitation Midodrine (Proamatine) 10 mg PO TID [facility] Last Admin: 02/13/17 13:29 Dose: 10 mg Mupirocin (Bactroban Ointment) 0 gm NS BID [facility] Stop: 02/16/17 10:01 Last Admin: 02/13/17 09:56 Dose: 1 applic Naproxen (Anaprox Ds) 550 mg PO BID [facility] Last Admin: 02/13/17 09:57 Dose: 550 mg Pantoprazole Sodium (Protonix Ec Tab) 40 mg PO 0600 [facility] Last Admin: 02/13/17 06:53 Dose: 40 mg Polyethylene Glycol (Miralax) 17 gm PO BID [facility] Last Admin: 02/13/17 09:55 Dose: 17 gm Polysaccharide Iron Complex (Ferrex-150) 150 mg PO DAILY [facility] Last Admin: 02/13/17 09:57 Dose: 150 mg - Labs Labs: 02/13/17 06:30 02/13/17 06:30 - Additional Findings Additional findings: Phys Exam: VS as below Const'l: a&o x 4, nad, obese woman Head/Neck: neck supple, no jvd, trachea midline, carotid midline, no cervical /head mass Eyes: nj, nonicteric sclera, eom intact ENT: auditory acuity grossly intact, throat not congested, no nasal deformity Cardio: rrr, no m/r/g, no carotid bruit, nml s1, s2 Pulm: +left sided decreased breath sounds; no accessory muscle use;l nml breath sounds bilaterally, ctab Abd: s/nt/nd, nbs x 4 q, no palpable masses Derm: no rashes, no ulcers, no lesions Extr: no edema, no cyanosis, no calf tenderness, no lesions, no varicosities Neuro: cn II-XII grossly intact, ue and le 5/5 muscle strength bilaterally, no los ue, le bilaterally and core Assessment and Plan - Assessment and Plan (Free Text) Assessment: A/P Patient is a 36 y/o F with PMH of HIV, drug abuse (on methadone), NIDDM2, morbidly obese whom presented with shortness of breath and was found to have septic Sock due to pneumonia superimposed with UTI with multi organ dysfunction. Septic shock due to pneumonia - Resolved - S/p 3 liters of NS - Leukocytosis trending down, and patient was afebrile - Pt no longer needs ICU care - see below for ID recs Hypoxemic respiratory distress due to pneumonia - resolved - Nasal cannula to maintain O2 saturation above 90%. - Head of bead above 35 degrees. Normocytic anemia- likely dilution versus CKD versus anemia of chronic disease in the setting HIV versus sepsis. - No active bleeding noted - Will obtain anemia work up, and retic count * Retic count: 1.84 * MCV: Normal * Given these findings, most likely ACD. - Will continue to monitor for now and transfuse if below 7, or continues to be hemodynamically unstable Thrombocytopenia likely due to sepsis/septic shock versus HIV status - Improving - No signs of active bleeding - Will monitor for now MEJIA, likely 2/2 Hypoperfusion - Resolving - Strict I&Os. - Consider renal U/S - Nephrology consulted: Recs appreciated Hypokalemia - Will replete, and will obtain magnesium level HIV with unknown status - CD4 count, viral loads were ordered, pending; contacted patient's primary care today, still waiting to hear back - Patient reported she is on Prezista/Decovy/Norvir therapy, however there's a concern for IRIS due to questionable compliance issues and current presentation. Unable to reach patient's HIV provider Vidal Varma. - ID consulted: * CAP VS Aspiration PNA VS Chemical pneumonitis * May need bronchoscopy if hemoptysis continues * Continue Rocephin and Azithromycin for now - may need to upgrade to Zosyn if she becomes febrile again or leukocytosis persists. NIDDM - Continue with insulin sliding scale and fingersticks Q6 hrs. H/o drug abuse - Pt was given her methadone dose of 80 DVT and GI PPXHS - Heparin - Protonix <Ivy Walsh - Last Filed: 02/13/17 15:43> Objective - Vital Signs/Intake and Output Vital Signs (last 24 hours): Temp Pulse Resp BP Pulse Ox 97.7 F 83 20 121/77 99 02/13/17 08:12 02/13/17 08:12 02/13/17 08:12 02/13/17 08:12 02/13/17 08:12 Intake and Output: 02/13/17 02/13/17 06:59 18:59 Intake Total 1080 600 Balance 1080 600 - Medications Medications: Current Medications Acetaminophen (Tylenol 325mg Tab) 650 mg PO Q6H PRN PRN Reason: Fever >100.4 F Albuterol/Ipratropium (Duoneb 3 Mg/0.5 Mg (3 Ml) Ud) 3 ml IH [id number] [facility] Last Admin: 02/13/17 14:23 Dose: Not Given Albuterol/Ipratropium (Duoneb 3 Mg/0.5 Mg (3 Ml) Ud) 3 ml IH Q2H PRN PRN Reason: Shortness of Breath Heparin Sodium (Porcine) (Heparin) 5,000 units SC Q8 ROXI PRN Reason: Protocol Last Admin: 02/13/17 13:30 Dose: 5,000 units Hydrocortisone Sodium Succinate (Solu-Cortef) 25 mg IVP Q12H [facility] Last Admin: 02/13/17 15:11 Dose: 25 mg Ceftriaxone Sodium (Rocephin 1 Gram Ivpb) 1 gm in 100 mls @ 100 mls/hr IVPB DAILY [facility] PRN Reason: Protocol Last Admin: 02/13/17 09:54 Dose: 100 mls/hr Lactated Ringer's (Lactated Ringer's) 1,000 mls @ 100 mls/hr IV .Q10H [facility] Last Admin: 02/13/17 06:53 Dose: 100 mls/hr Insulin Human Regular (Humulin R Med) 0 units SC ACHS [facility] PRN Reason: Protocol Last Admin: 02/13/17 12:31 Dose: Not Given Midazolam HCl (Versed Inj) 5 mg IVP Q4H PRN PRN Reason: Agitation Midodrine (Proamatine) 10 mg PO TID [facility] Last Admin: 02/13/17 13:29 Dose: 10 mg Mupirocin (Bactroban Ointment) 0 gm NS BID [facility] Stop: 02/16/17 10:01 Last Admin: 02/13/17 09:56 Dose: 1 applic Naproxen (Anaprox Ds) 550 mg PO BID [facility] Last Admin: 02/13/17 09:57 Dose: 550 mg Pantoprazole Sodium (Protonix Ec Tab) 40 mg PO 0600 [facility] Last Admin: 02/13/17 06:53 Dose: 40 mg Polyethylene Glycol (Miralax) 17 gm PO BID [facility] Last Admin: 02/13/17 09:55 Dose: 17 gm Polysaccharide Iron Complex (Ferrex-150) 150 mg PO DAILY [facility] Last Admin: 02/13/17 09:57 Dose: 150 mg - Labs Labs: 02/13/17 06:30 02/13/17 06:30 Attending/Attestation - Attestation I have personally seen and examined this patient.: Yes I have fully participated in the care of the patient.: Yes I have reviewed all pertinent clinical information, including history, physical exam and plan: Yes Notes (Text): I have seen and examined the patient at bedside. Agree with the above note with the following additions/ exceptions: Briefly this is 36 year old female with PMH of HIV, drug abuse (on methadone), DM- 2, morbidly obese who recently relapsed on heroin is admitted with shortness of breath and was found to have sepsis Shock due to pneumonia, UTI, renal insufficiency due to ATN. Patient is off of pressors and is on tapering dose of steroids. Patient is still coughing however she is able to talk without any distress. Continue duonebs, Rocephin and Zithromax. Blood cultures are growing GPC. Urine culture is growing proteus. CD4 and viral load still pending. As per patient she is compliant with her HIV medications. She has anemia of chronic disease. Methadone dosage was confirmed and was restarted. Renal function is improving. Echo revealed EF~55% and diastolic dysfunction. Recommended to have a repeat echo as an outpatient. Also recommended to have sleep study as an outpatient. Upon discharge patient will follow up with Dr Rl Cardenas. Dr Ivy Walsh
--- NOTE | 2017-02-13 17:49 | CP.PCM.PN ---
Subjective - Date & Time of Evaluation Date of Evaluation: 02/13/17 Time of Evaluation: 12:45 - Subjective Subjective: Infectious Disease Follow Up: February 13, 2017 36 yo female with SOB and lethargy. She has a history of HIV, depression, anxiety, and DM. The patient has a history of hemoptysis, shortness of breath, and cough. The patient states symptoms started 1 weeks ago. The patient states that she did relapse with heroin use (inhaled/snorted) 1 week ago. She does NOT want her family to know about her heroin relapse. The patient has had HIV for 16 years. [facility] [place] [facility] [place] [facility] [place] [facility] She states that she was told her numbers are good but she doesn't know her numbers. The patient does not know if the heroin was cut with any other substance. Feeling better today. Urine culture with gram negative rods >100,000 CFU/ml... identified as Proteus One blood culture from admission with gram positive cocci in chains. A second blood culture taken the next day shows gram positive cocci in chains again. Objective - Vital Signs/Intake and Output Vital Signs (last 24 hours): Temp Pulse Resp BP Pulse Ox 97.3 F L 82 20 114/68 98 02/13/17 15:52 02/13/17 15:52 02/13/17 15:52 02/13/17 15:52 02/13/17 15:52 Intake and Output: 02/13/17 02/13/17 06:59 18:59 Intake Total 1080 600 Balance 1080 600 - Medications Medications: Current Medications Acetaminophen (Tylenol 325mg Tab) 650 mg PO Q6H PRN PRN Reason: Fever >100.4 F Albuterol/Ipratropium (Duoneb 3 Mg/0.5 Mg (3 Ml) Ud) 3 ml IH [id number] [facility] Last Admin: 02/13/17 14:23 Dose: Not Given Albuterol/Ipratropium (Duoneb 3 Mg/0.5 Mg (3 Ml) Ud) 3 ml IH Q2H PRN PRN Reason: Shortness of Breath Heparin Sodium (Porcine) (Heparin) 5,000 units SC Q8 ROXI PRN Reason: Protocol Last Admin: 02/13/17 13:30 Dose: 5,000 units Hydrocortisone Sodium Succinate (Solu-Cortef) 25 mg IVP Q12H [facility] Last Admin: 02/13/17 15:11 Dose: 25 mg Ceftriaxone Sodium (Rocephin 1 Gram Ivpb) 1 gm in 100 mls @ 100 mls/hr IVPB DAILY [facility] PRN Reason: Protocol Last Admin: 02/13/17 09:54 Dose: 100 mls/hr Lactated Ringer's (Lactated Ringer's) 1,000 mls @ 100 mls/hr IV .Q10H [facility] Last Admin: 02/13/17 06:53 Dose: 100 mls/hr Insulin Human Regular (Humulin R Med) 0 units SC ACHS [facility] PRN Reason: Protocol Last Admin: 02/13/17 12:31 Dose: Not Given Midazolam HCl (Versed Inj) 5 mg IVP Q4H PRN PRN Reason: Agitation Midodrine (Proamatine) 10 mg PO TID [facility] Last Admin: 02/13/17 13:29 Dose: 10 mg Mupirocin (Bactroban Ointment) 0 gm NS BID [facility] Stop: 02/16/17 10:01 Last Admin: 02/13/17 09:56 Dose: 1 applic Naproxen (Anaprox Ds) 550 mg PO BID [facility] Last Admin: 02/13/17 09:57 Dose: 550 mg Pantoprazole Sodium (Protonix Ec Tab) 40 mg PO 0600 [facility] Last Admin: 02/13/17 06:53 Dose: 40 mg Polyethylene Glycol (Miralax) 17 gm PO BID [facility] Last Admin: 02/13/17 09:55 Dose: 17 gm Polysaccharide Iron Complex (Ferrex-150) 150 mg PO DAILY [facility] Last Admin: 02/13/17 09:57 Dose: 150 mg - Labs Labs: 02/13/17 06:30 02/13/17 06:30 - Constitutional Appears: Non-toxic, No Acute Distress, Chronically Ill - Head Exam Head Exam: ATRAUMATIC, NORMOCEPHALIC - Eye Exam Eye Exam: EOMI, PERRL Pupil Exam: NORMAL ACCOMODATION, PERRL - ENT Exam ENT Exam: Mucous Membranes Moist, Normal External Ear Exam, TM's Normal Bilaterally - Neck Exam Neck Exam: Full ROM, Normal Inspection - Respiratory Exam Respiratory Exam: Decreased Breath Sounds, NORMAL BREATHING PATTERN. absent: Rales, Rhonchi, Wheezes - Cardiovascular Exam Cardiovascular Exam: Tachycardia, +S1, +S2 - GI/Abdominal Exam GI & Abdominal Exam: Soft, Normal Bowel Sounds. absent: Distended, Tenderness - Extremities Exam Extremities Exam: Full ROM, Normal Inspection - Neurological Exam Neurological Exam: Alert, Awake, CN II-XII Intact, Oriented x3 - Psychiatric Exam Psychiatric exam: Normal Affect, Normal Mood - Skin Skin Exam: Intact, Normal Color Assessment and Plan - Assessment and Plan (Free Text) Assessment: 36 yo morbidly obese female with HIV for the past 16 year ([place] [facility] [facility] presenting with hemoptysis, cough, and SOB. The patient states that she did relapse with her heroin use. The patient inhaled/snorted heroin one week ago and the symptoms started after that. Cannot rule out CAP, aspiration pneumonia, and/or chemical pneumonitis. The patient may need bronchoscopy if hemoptysis continues. Need to obtain the patient's CD4 and viral load. Should be retested in hospital as well as values obtained from her HIV clinic. The patient follows every 3-6 months with the clinic. Continue IV antibiotics with Rocephin and Azithromycin for now. May need to broaden coverage to Zosyn from Rocephin if fevers return and/or leukocytosis persists. However, afebrile and leukocytosis has been improving. Await culture identification of the urine culture and the blood culture. Blood cultures taken a day after admission is showing gram positive cocci in chains. Added Vancomycin IV. UTI with proteus sensitive to Rocephin. Supportive care. Thank you for allowing me to participate in the care of the patient, we will follow with you.
[2017-02-14] MEDS: Albuterol-Ipratrop 3 mg / 0.5 (3 ml) UD IH SCH ×4 (02:00→21:15)
[2017-02-14 06:23] LABS: BASO # 0.05 K/mm3 (0.0-2.0); BASO % 0.6 % (0.0-3.0); EOS # 0.1 (0.0-0.7); EOS % 0.6 % (1.5-5.0); GRAN # 5.92 (1.4-6.5); GRAN % 68.8 % (50.0-68.0); LYMPH # 1.5 (1.2-3.4); LYMPH % 17.5 % (22.0-35.0); MEAN CELL VOLUME 91.8 fl (80.0-105.0); MEAN CORPUSCULAR HEMOGLOBIN 28.5 pg (25.0-35.0); MEAN PLATELET VOLUME 11.1 fl (7.0-11.0); MONO # 1.1 (0.1-0.6); MONO % 12.5 % (1.0-6.0); RED CELL DISTRIBUTION WIDTH 15.5 % (11.5-14.5); WHITE BLOOD COUNT 8.6 10^3/ul (4.5-11.0)
[2017-02-14] MEDS: Pantoprazole 40 mg EC Tab PO SCH (06:23)
[2017-02-14 06:54] LABS: ALB/GLOB RATIO 0.7 (1.1-1.8); BILIRUBIN,TOTAL 0.4 mg/dL (0.2-1.3); CALCIUM 8.5 mg/dL (8.4-10.5); POTASSIUM 4.3 mmol/L (3.6-5.0); TOTAL PROTEIN 7.4 g/dL (5.8-8.3)
--- NOTE | 2017-02-14 08:13 | PN ---
DATE: 02/13/2017 SUBJECTIVE: The patient had been transferred to . She appears to be comfortable. She is still short of breath. She is lying in bed with the bed raised to 45 degrees. She remains on IV antibiotic therapy for her suspected pneumonia, urinary tract infection and possible bacteremia. Her HAART therapy has not been restarted at this point in time. Her renal parameters continue to improve. MEDICATIONS: Medication list reviewed. The patient is on Naprosyn, mupirocin, DuoNeb, Ferrex, subcutaneous heparin, insulin, lactated Ringer's 100 ml an hour, MiraLax, ProAmatine, Protonix, Rocephin, Solu-Cortef, Tylenol p.r.n. and Versed p.r.n. OBJECTIVE INTAKE/OUTPUT: Intake is 1080. Output is not charted. VITAL SIGNS: Blood pressure is improved ranging from 114-121 systolic, diastolic ranging from 68-77. Temperature 97.3, pulse 82, respiratory rate 20 with a pulse ox of 98%. HEENT: Exam shows her to be normocephalic, atraumatic. Conjunctiva are pale. Sclerae are nonicteric. NECK: Supple. No neck vein distention. CHEST: Clear to auscultation and percussion with decreased breath sounds at the bases. Scattered rhonchi. No wheezing. No rales. CARDIOVASCULAR: Shows a regular rate and rhythm with distant heart sounds. Tricuspid regurgitation. No rub. ABDOMEN: Soft. Bowel sounds normal. Obese. No masses appreciated. EXTREMITIES: Show no lower extremity cyanosis or clubbing. She has trace nonpitting edema of her lower extremity. She has diminished lower extremity pulses bilaterally. LABORATORY DATA AND IMAGING STUDIES: CBC today white blood cell count down to 9.1, hemoglobin stable at 8.8, platelet count is 165,000. Chemistries today showed normal electrolytes. BUN is 46 down from a high of 53. Creatinine is 2.1 down from a high of 4.8. Her baseline BUN is in the 20s in 2016. Baseline creatinine is in the mid 1 range. Also dating back to 2016. Urine Sav stain was negative. Urine sodium was 14 with a urine creatinine of 81. Fractional excretion of sodium was less than 1%. Microbiology; Urine are positive for Proteus. Blood cultures are positive for staph aureus coag negative. Iron saturations were 7%. ASSESSMENT: 1. Acute renal failure in the setting of hemodynamic instability, hypotension likely tubular necrosis in the setting of left lower lobe pneumonia, urinary tract infection and bacteremia. The patient is immunocompromised with human immunodeficiency virus. She is on antiviral therapy in the outpatient setting. The patient was weaned off pressors in the ICU and she is currently maintained on ProAmatine which over time can hopefully be discontinued. 2. Left lower lobe pneumonia. The patient will continue empiric antibiotic therapy. 3. Bacteremia and Proteus urinary tract infection as noted above. The patient will continue antibiotic therapy. 4. History of anemia in part secondary to infection in part secondary to human immunodeficiency virus in part secondary to iron deficiency. Because of her bacteremia, the patient will start IV Venofer. She can continue on oral iron therapy. 5. History of human immunodeficiency virus when deemed appropriate by Infectious Disease, the patient may be started back on HAART therapy. 6. History of cigarette smoking and drug abuse. The patient told that she must discontinue these habits. 7. Status post mild hypomagnesemia. Magnesium level on last check was corrected at 2.3. 8. History of morbid obesity. PLAN: 1. Continue to monitor the patient closely as a BUN and creatinine fall to baseline levels. 2. The patient may remain on IV fluid hydration and given her hypotension and her elevated BUN and creatinine. 3. May consider discontinuation of ProAmatine once her blood pressure stabilizes. 4. Complete a course of IV antibiotic therapy. 5. Started on appropriate timing for starting HAART therapy. 6. Avoid all nephrotoxic agents. I would strongly consider discontinuation of naproxen given the fact that her BUN and creatinine remained elevated. I will leave the final decision up to her primary care physician. Cholo Mars MD
[2017-02-14] MEDS: cefTRIAXone 1 gm 1 GM/100 ML BAG IVPB SCH (10:08)
[2017-02-14] MEDS: Naproxen 550 mg Tab PO SCH ×2 (10:09→18:23)
[2017-02-14] MEDS: POLYETHYLENE GLYCOL 3350 17 GM/Dose PACKET PO SCH ×3 (10:09→18:23)
[2017-02-14] MEDS: Insulin Reg-MEDIUM-Coverage SC SCH ×4 (10:09→22:22)
[2017-02-14] MEDS: Iron Complex Polysacch 150mg Cap PO SCH (10:09)
--- NOTE | 2017-02-14 12:24 | CP.PCM.PN ---
<JaspalBuddy - Last Filed: 02/14/17 11:53> Subjective - Date & Time of Evaluation Date of Evaluation: 02/14/17 Time of Evaluation: 11:53 - Subjective Subjective: Pt s/e bedside. Pt states her breathing is better. Pt was having withdrawal symptoms earlier, methadone was ordered. Her primary care was called yesterday for dosages on her HAART tx - awaiting response. Pt is also saying that she has not fully evacuated her bowels. Otherwise, patient doing well, no further complaints at this time. Objective - Vital Signs/Intake and Output Vital Signs (last 24 hours): Temp Pulse Resp BP Pulse Ox 98.1 F 87 20 162/85 H 100 02/14/17 07:30 02/14/17 07:30 02/14/17 07:30 02/14/17 07:30 02/14/17 07:30 Intake and Output: 02/14/17 02/14/17 06:59 18:59 Intake Total 960 Balance 960 - Medications Medications: Current Medications Acetaminophen (Tylenol 325mg Tab) 650 mg PO Q6H PRN PRN Reason: Fever >100.4 F Albuterol/Ipratropium (Duoneb 3 Mg/0.5 Mg (3 Ml) Ud) 3 ml IH [id number] [facility] Last Admin: 02/14/17 07:29 Dose: 3 ml Albuterol/Ipratropium (Duoneb 3 Mg/0.5 Mg (3 Ml) Ud) 3 ml IH Q2H PRN PRN Reason: Shortness of Breath Heparin Sodium (Porcine) (Heparin) 5,000 units SC Q8 [facility] PRN Reason: Protocol Last Admin: 02/14/17 06:23 Dose: 5,000 units Hydrocortisone Sodium Succinate (Solu-Cortef) 10 mg IVP Q12H [facility] Ceftriaxone Sodium (Rocephin 1 Gram Ivpb) 1 gm in 100 mls @ 100 mls/hr IVPB DAILY [facility] PRN Reason: Protocol Last Admin: 02/14/17 10:08 Dose: 100 mls/hr Lactated Ringer's (Lactated Ringer's) 1,000 mls @ 100 mls/hr IV .Q10H [facility] Last Admin: 02/13/17 18:35 Dose: 100 mls/hr Insulin Human Regular (Humulin R Med) 0 units SC ACHS [facility] PRN Reason: Protocol Last Admin: 02/14/17 10:09 Dose: Not Given Midazolam HCl (Versed Inj) 5 mg IVP Q4H PRN PRN Reason: Agitation Midodrine (Proamatine) 10 mg PO TID [facility] Last Admin: 02/14/17 10:08 Dose: 10 mg Mupirocin (Bactroban Ointment) 0 gm NS BID [facility] Stop: 02/16/17 10:01 Last Admin: 02/14/17 10:09 Dose: 1 applic Naproxen (Anaprox Ds) 550 mg PO BID [facility] Last Admin: 02/14/17 10:09 Dose: 550 mg Pantoprazole Sodium (Protonix Ec Tab) 40 mg PO 0600 [facility] Last Admin: 02/14/17 06:23 Dose: 40 mg Polyethylene Glycol (Miralax) 17 gm PO TID [facility] Polysaccharide Iron Complex (Ferrex-150) 150 mg PO DAILY [facility] Last Admin: 02/14/17 10:09 Dose: 150 mg - Labs Labs: 02/14/17 06:05 02/14/17 06:05 - Additional Findings Additional findings: Phys Exam: VS as below Const'l: a&o x 4, nad, obese woman Head/Neck: neck supple, no jvd, trachea midline, carotid midline, no cervical /head mass Eyes: nj, nonicteric sclera, eom intact ENT: auditory acuity grossly intact, throat not congested, no nasal deformity Cardio: rrr, no m/r/g, no carotid bruit, nml s1, s2 Pulm: +left sided decreased breath sounds - resolved; no accessory muscle use ;l nml breath sounds bilaterally, ctab Abd: s/nt/nd, nbs x 4 q, no palpable masses Derm: no rashes, no ulcers, no lesions Extr: no edema, no cyanosis, no calf tenderness, no lesions, no varicosities Neuro: cn II-XII grossly intact, ue and le 5/5 muscle strength bilaterally, no los ue, le bilaterally and core Assessment and Plan - Assessment and Plan (Free Text) Assessment: A/P Patient is a 36 y/o F with PMH of HIV, drug abuse (on methadone), NIDDM2, morbidly obese whom presented with shortness of breath and was found to have septic Sock due to pneumonia superimposed with UTI with multi organ dysfunction. Septic shock due to pneumonia - Resolved - Leukocytosis trending down, afebrile - Pt no longer needs ICU care - see below for ID recs Hypoxemic respiratory distress due to pneumonia - resolved - Nasal cannula to maintain O2 saturation above 90%. - Head of bead above 35 degrees. Normocytic anemia- likely ACD - No active bleeding noted - Will obtain anemia work up, and retic count * Retic count: 1.84 * MCV: Normal * Given these findings, most likely ACD. - Will continue to monitor for now and transfuse if below 7, or continues to be hemodynamically unstable Thrombocytopenia likely due to sepsis/septic shock versus HIV status - Improving - No signs of active bleeding - Will monitor for now MEJIA, likely 2/2 Hypoperfusion - Resolving - Strict I&Os - Nephrology consulted * Avoid nephrotoxic drugs Hypokalemia - Will replete, and will obtain magnesium level HIV with unknown status - CD4 count, viral loads were ordered, pending; contacted patient's primary care today, still waiting to hear back - Patient reported she is on Prezista/Decovy/Norvir therapy, however there's a concern for IRIS due to questionable compliance issues and current presentation. Unable to reach patient's HIV provider Vidal Varma. - ID consulted: * CAP VS Aspiration PNA VS Chemical pneumonitis * May need bronchoscopy if hemoptysis continues * Continue Rocephin and Azithromycin for now - may need to upgrade to Zosyn if she becomes febrile again or leukocytosis persists. NIDDM - Continue with insulin sliding scale and fingersticks Q6 hrs. H/o drug abuse - Pt was given her methadone dose of 80 DVT and GI PPXHS - Heparin - Protonix <Ivy Walsh B - Last Filed: 02/14/17 16:45> Objective - Vital Signs/Intake and Output Vital Signs (last 24 hours): Temp Pulse Resp BP Pulse Ox 98.1 F 87 20 162/85 H 100 02/14/17 07:30 02/14/17 07:30 02/14/17 07:30 02/14/17 07:30 02/14/17 07:30 Intake and Output: 02/14/17 02/14/17 06:59 18:59 Intake Total 960 480 Balance 960 480 - Medications Medications: Current Medications Acetaminophen (Tylenol 325mg Tab) 650 mg PO Q6H PRN PRN Reason: Fever >100.4 F Albuterol/Ipratropium (Duoneb 3 Mg/0.5 Mg (3 Ml) Ud) 3 ml IH [id number] [facility] Last Admin: 02/14/17 13:50 Dose: 3 ml Albuterol/Ipratropium (Duoneb 3 Mg/0.5 Mg (3 Ml) Ud) 3 ml IH Q2H PRN PRN Reason: Shortness of Breath Heparin Sodium (Porcine) (Heparin) 5,000 units SC Q8 [facility] PRN Reason: Protocol Last Admin: 02/14/17 14:31 Dose: 5,000 units Hydrocortisone Sodium Succinate (Solu-Cortef) 10 mg IVP Q12H [facility] Last Admin: 02/14/17 13:51 Dose: 10 mg Ceftriaxone Sodium (Rocephin 1 Gram Ivpb) 1 gm in 100 mls @ 100 mls/hr IVPB DAILY [facility] PRN Reason: Protocol Last Admin: 02/14/17 10:08 Dose: 100 mls/hr Lactated Ringer's (Lactated Ringer's) 1,000 mls @ 100 mls/hr IV .Q10H [facility] Last Admin: 02/13/17 18:35 Dose: 100 mls/hr Insulin Human Regular (Humulin R Med) 0 units SC ACHS [facility] PRN Reason: Protocol Last Admin: 02/14/17 14:33 Dose: Not Given Midazolam HCl (Versed Inj) 5 mg IVP Q4H PRN PRN Reason: Agitation Midodrine (Proamatine) 10 mg PO TID [facility] Last Admin: 02/14/17 14:37 Dose: 10 mg Mupirocin (Bactroban Ointment) 0 gm NS BID [facility] Stop: 02/16/17 10:01 Last Admin: 02/14/17 10:09 Dose: 1 applic Naproxen (Anaprox Ds) 550 mg PO BID [facility] Last Admin: 02/14/17 10:09 Dose: 550 mg Pantoprazole Sodium (Protonix Ec Tab) 40 mg PO 0600 [facility] Last Admin: 02/14/17 06:23 Dose: 40 mg Polyethylene Glycol (Miralax) 17 gm PO TID [facility] Polysaccharide Iron Complex (Ferrex-150) 150 mg PO DAILY [facility] Last Admin: 02/14/17 10:09 Dose: 150 mg - Labs Labs: 02/14/17 06:05 02/14/17 06:05 Attending/Attestation - Attestation I have personally seen and examined this patient.: Yes I have fully participated in the care of the patient.: Yes I have reviewed all pertinent clinical information, including history, physical exam and plan: Yes Notes (Text): I have seen and examined the patient at bedside. Agree with the above note with the following additions/ exceptions: Briefly this is 36 year old female with PMH of HIV, drug abuse (on methadone), DM- 2, morbidly obese who recently relapsed on heroin is admitted with shortness of breath and was found to have sepsis Shock due to pneumonia, UTI, renal insufficiency due to ATN. Patient is off of pressors and is on tapering dose of steroids. Patient is still coughing however she is able to talk without any distress. Continue duonebs, Rocephin and Zithromax. Blood cultures are growing strep pneumonia and 2 nd BC grew coag neg staph. Urine culture is growing proteus. CD4 and viral load still pending. As per patient she is compliant with her HIV medications. Will resume meds upon discharge as per ID. She has anemia of chronic disease. Methadone dosage was confirmed and was restarted. Renal function is improving.She still complains of constipation. Will continue miralax and add glycerine suppository. Echo revealed EF~55% and diastolic dysfunction. Recommended to have a repeat echo as an outpatient. Also recommended to have sleep study as an outpatient. PT eval pending. Upon discharge patient will follow up with Dr Rl Cardenas. Dr Ivy Walsh
[2017-02-14] MEDS ORDERED: Bisacodyl 5mg EC Tab PO ONE (15:48)
[2017-02-14] MEDS: Lactated Ringer's 1,000 ML IV SCH ×2 (18:24→22:23)
--- NOTE | 2017-02-14 19:28 | CP.PCM.PN ---
Subjective - Date & Time of Evaluation Date of Evaluation: 02/14/17 Time of Evaluation: 17:45 - Subjective Subjective: Infectious Disease Follow Up: February 14, 2017 36 yo female with SOB and lethargy. She has a history of HIV, depression, anxiety, and DM. The patient has a history of hemoptysis, shortness of breath, and cough. The patient states symptoms started 1 weeks ago. The patient states that she did relapse with heroin use (inhaled/snorted) 1 week ago. She does NOT want her family to know about her heroin relapse. The patient has had HIV for 16 years. [facility] ( [employer]). She states that she was told her numbers are good but she doesn't know her numbers. The patient does not know if the heroin was cut with any other substance. Feeling better today. Urine culture with gram negative rods >100,000 CFU/ml... identified as Proteus One blood culture from admission with gram positive cocci in chains. A second blood culture taken the next day shows gram positive cocci in chains again. One grew strep pneumoniae and the other was coagulase negative staph. Objective - Vital Signs/Intake and Output Vital Signs (last 24 hours): Temp Pulse Resp BP Pulse Ox 98.1 F 87 20 162/85 H 100 02/14/17 07:30 02/14/17 07:30 02/14/17 07:30 02/14/17 07:30 02/14/17 07:30 Intake and Output: 02/14/17 02/15/17 18:59 06:59 Intake Total 480 Balance 480 - Medications Medications: Current Medications Acetaminophen (Tylenol 325mg Tab) 650 mg PO Q6H PRN PRN Reason: Fever >100.4 F Albuterol/Ipratropium (Duoneb 3 Mg/0.5 Mg (3 Ml) Ud) 3 ml IH [id number] [facility] Last Admin: 02/14/17 13:50 Dose: 3 ml Albuterol/Ipratropium (Duoneb 3 Mg/0.5 Mg (3 Ml) Ud) 3 ml IH Q2H PRN PRN Reason: Shortness of Breath Heparin Sodium (Porcine) (Heparin) 5,000 units SC Q8 [facility] PRN Reason: Protocol Last Admin: 02/14/17 14:31 Dose: 5,000 units Hydrocortisone Sodium Succinate (Solu-Cortef) 10 mg IVP Q12H [facility] Last Admin: 02/14/17 13:51 Dose: 10 mg Ceftriaxone Sodium (Rocephin 1 Gram Ivpb) 1 gm in 100 mls @ 100 mls/hr IVPB DAILY [facility] PRN Reason: Protocol Last Admin: 02/14/17 10:08 Dose: 100 mls/hr Lactated Ringer's (Lactated Ringer's) 1,000 mls @ 100 mls/hr IV .Q10H [facility] Last Admin: 02/14/17 18:24 Dose: 100 mls/hr Insulin Human Regular (Humulin R Med) 0 units SC ACHS [facility] PRN Reason: Protocol Last Admin: 02/14/17 18:23 Dose: Not Given Midazolam HCl (Versed Inj) 5 mg IVP Q4H PRN PRN Reason: Agitation Midodrine (Proamatine) 10 mg PO TID [facility] Last Admin: 02/14/17 18:23 Dose: 10 mg Mupirocin (Bactroban Ointment) 0 gm NS BID [facility] Stop: 02/16/17 10:01 Last Admin: 02/14/17 18:23 Dose: 1 applic Naproxen (Anaprox Ds) 550 mg PO BID [facility] Last Admin: 02/14/17 18:23 Dose: 550 mg Pantoprazole Sodium (Protonix Ec Tab) 40 mg PO 0600 [facility] Last Admin: 02/14/17 06:23 Dose: 40 mg Polyethylene Glycol (Miralax) 17 gm PO TID [facility] Last Admin: 02/14/17 18:23 Dose: Not Given Polysaccharide Iron Complex (Ferrex-150) 150 mg PO DAILY [facility] Last Admin: 02/14/17 10:09 Dose: 150 mg - Labs Labs: 02/14/17 06:05 02/14/17 06:05 - Constitutional Appears: Non-toxic, No Acute Distress, Chronically Ill - Head Exam Head Exam: ATRAUMATIC, NORMOCEPHALIC - Eye Exam Eye Exam: EOMI, PERRL Pupil Exam: NORMAL ACCOMODATION, PERRL - ENT Exam ENT Exam: Mucous Membranes Moist, Normal External Ear Exam, TM's Normal Bilaterally - Neck Exam Neck Exam: Full ROM, Normal Inspection - Respiratory Exam Respiratory Exam: Clear to Ausculation Bilateral, NORMAL BREATHING PATTERN. absent: Rales, Rhonchi, Wheezes - Cardiovascular Exam Cardiovascular Exam: REGULAR RHYTHM, RRR, +S1, +S2 - GI/Abdominal Exam GI & Abdominal Exam: Soft, Normal Bowel Sounds. absent: Distended, Tenderness - Extremities Exam Extremities Exam: Full ROM, Normal Inspection - Neurological Exam Neurological Exam: Alert, Awake, CN II-XII Intact, Oriented x3 - Psychiatric Exam Psychiatric exam: Normal Affect, Normal Mood - Skin Skin Exam: Intact, Normal Color Assessment and Plan - Assessment and Plan (Free Text) Assessment: 36 yo morbidly obese female with HIV for the past 16 year ([facility] in [facility] at the [facility] site) presenting with hemoptysis, cough, and SOB. The patient states that she did relapse with her heroin use. The patient inhaled/snorted heroin one week ago and the symptoms started after that. Cannot rule out CAP, aspiration pneumonia, and/or chemical pneumonitis. The patient may need bronchoscopy if hemoptysis continues. Need to obtain the patient's CD4 and viral load. Should be retested in hospital as well as values obtained from her HIV clinic. The patient follows every 3-6 months with the clinic. Continue IV antibiotics with Rocephin and Azithromycin for now. May need to broaden coverage to Zosyn from Rocephin if fevers return and/or leukocytosis persists. However, afebrile and leukocytosis has been improving. Await culture identification of the urine culture and the blood culture. Blood cultures taken a day after admission is showing gram positive cocci in chains. Added Vancomycin IV. UTI with proteus sensitive to Rocephin. Continue Rocephin treatment. Supportive care. Thank you for allowing me to participate in the care of the patient, we will follow with you.
[2017-02-15] MEDS: Albuterol-Ipratrop 3 mg / 0.5 (3 ml) UD IH SCH ×4 (02:50→20:25)
[2017-02-15 07:42] LABS: BASO # 0.04 K/mm3 (0.0-2.0); BASO % 0.6 % (0.0-3.0); EOS # 0.1 (0.0-0.7); EOS % 0.8 % (1.5-5.0); GRAN # 4.96 (1.4-6.5); GRAN % 69.6 % (50.0-68.0); HEMATOCRIT 30.6 % (36.0-48.0); LYMPH # 1.5 (1.2-3.4); LYMPH % 20.6 % (22.0-35.0); MEAN CELL VOLUME 91.1 fl (80.0-105.0); MEAN CORPUSCULAR HEMOGLOBIN 27.7 pg (25.0-35.0); MEAN CORPUSCULAR HGB CONC 30.4 g/dl (31.0-37.0); MEAN PLATELET VOLUME 11.4 fl (7.0-11.0); MONO # 0.6 (0.1-0.6); MONO % 8.4 % (1.0-6.0); RED CELL DISTRIBUTION WIDTH 15.2 % (11.5-14.5); WHITE BLOOD COUNT 7.1 10^3/ul (4.5-11.0)
[2017-02-15 07:56] LABS: ALB/GLOB RATIO 0.7 (1.1-1.8); BILIRUBIN,TOTAL 0.6 mg/dL (0.2-1.3); CALCIUM 8.7 mg/dL (8.4-10.5); POTASSIUM 4.6 mmol/L (3.6-5.0); TOTAL PROTEIN 7.6 g/dL (5.8-8.3)
[2017-02-15] MEDS: Iron Complex Polysacch 150mg Cap PO SCH (10:00)
[2017-02-15] MEDS: Naproxen 550 mg Tab PO SCH (10:01)
[2017-02-15] MEDS: POLYETHYLENE GLYCOL 3350 17 GM/Dose PACKET PO SCH ×3 (10:02→17:04)
[2017-02-15] MEDS: cefTRIAXone 1 gm 1 GM/100 ML BAG IVPB SCH (10:02)
--- NOTE | 2017-02-15 12:25 | CP.PCM.PN ---
<JaspalBuddy - Last Filed: 02/15/17 12:18> Subjective - Date & Time of Evaluation Date of Evaluation: 02/15/17 Time of Evaluation: 12:18 - Subjective Subjective: Medicine progress note for Dr. Johana Walsh- TKS DO PGY - 1, Pt s/e bedside. Pt states her breathing is much better today from the days before and that she has been able to stay off of her nasal cannula for an extended period of time. Pt further states that she was able to finally evacuate her bowels yesterday and she feels much better. Patient was not withdrawing this am when she was seen, but she did request her methadone so that she would not go into withdrawal. Reached out to Dr. Barker regarding her CD 4 counts, to see if she needs to be put on prophylactic Abx for OI's. At this time, pt has no further complaints Objective - Vital Signs/Intake and Output Vital Signs (last 24 hours): Temp Pulse Resp BP Pulse Ox 98 F 87 20 126/76 97 02/15/17 07:30 02/15/17 07:30 02/15/17 07:30 02/15/17 07:30 02/15/17 07:30 Intake and Output: 02/15/17 02/15/17 06:59 18:59 Intake Total 540 Balance 540 - Medications Medications: Current Medications Acetaminophen (Tylenol 325mg Tab) 650 mg PO Q6H PRN PRN Reason: Fever >100.4 F Albuterol/Ipratropium (Duoneb 3 Mg/0.5 Mg (3 Ml) Ud) 3 ml IH [id number] [facility] Last Admin: 02/15/17 07:42 Dose: 3 ml Albuterol/Ipratropium (Duoneb 3 Mg/0.5 Mg (3 Ml) Ud) 3 ml IH Q2H PRN PRN Reason: Shortness of Breath Heparin Sodium (Porcine) (Heparin) 5,000 units SC Q8 [facility] PRN Reason: Protocol Last Admin: 02/14/17 22:22 Dose: Not Given Hydrocortisone Sodium Succinate (Solu-Cortef) 5 mg IVP Q12H [facility] Ceftriaxone Sodium (Rocephin 1 Gram Ivpb) 1 gm in 100 mls @ 100 mls/hr IVPB DAILY [facility] PRN Reason: Protocol Last Admin: 02/15/17 10:02 Dose: 100 mls/hr Lactated Ringer's (Lactated Ringer's) 1,000 mls @ 100 mls/hr IV .Q10H [facility] Last Admin: 02/14/17 22:23 Dose: Not Given Insulin Human Regular (Humulin R Med) 0 units SC ACHS [facility] PRN Reason: Protocol Last Admin: 02/14/17 22:22 Dose: Not Given Midazolam HCl (Versed Inj) 5 mg IVP Q4H PRN PRN Reason: Agitation Midodrine (Proamatine) 10 mg PO TID [facility] Last Admin: 02/15/17 10:00 Dose: 10 mg Mupirocin (Bactroban Ointment) 0 gm NS BID [facility] Stop: 02/16/17 10:01 Last Admin: 02/15/17 10:02 Dose: 1 applic Naproxen (Anaprox Ds) 550 mg PO BID [facility] Last Admin: 02/15/17 10:01 Dose: 550 mg Pantoprazole Sodium (Protonix Ec Tab) 40 mg PO 0600 [facility] Last Admin: 02/14/17 06:23 Dose: 40 mg Polyethylene Glycol (Miralax) 17 gm PO TID [facility] Last Admin: 02/15/17 10:02 Dose: 17 gm Polysaccharide Iron Complex (Ferrex-150) 150 mg PO DAILY [facility] Last Admin: 02/15/17 10:00 Dose: 150 mg - Labs Labs: 02/15/17 07:20 02/15/17 07:20 - Additional Findings Additional findings: Phys Exam: VS as below Const'l: a&o x 4, nad, obese woman Head/Neck: neck supple, no jvd, trachea midline, carotid midline, no cervical /head mass Eyes: nj, nonicteric sclera, eom intact ENT: auditory acuity grossly intact, throat not congested, no nasal deformity Cardio: rrr, no m/r/g, no carotid bruit, nml s1, s2 Pulm: +left sided decreased breath sounds - resolved; no accessory muscle use ;l nml breath sounds bilaterally, ctab Abd: s/nt/nd, nbs x 4 q, no palpable masses Derm: no rashes, no ulcers, no lesions Extr: no edema, no cyanosis, no calf tenderness, no lesions, no varicosities Neuro: cn II-XII grossly intact, ue and le 5/5 muscle strength bilaterally, no los ue, le bilaterally and core Assessment and Plan - Assessment and Plan (Free Text) Assessment: A/P 36 y/o F with pertinent PMH of HIV and drug abuse (on methadone) presented with shortness of breath and was found to have septic shock due to acute lung injury superimposed with UTI with multi organ dysfunction. Shock and respiratory distress have now resolved. However, Pt's CD 4 counts are indicative of full blown AIDS AIDS - CD 4 of 75 - ID consulted: * Dr. Barker contacted regarding new CD4 levels. Will wait to discuss prophylactic tx for MAC, PCP, TB, T. Gondii, VZV, and Histoplasmosis NIDDM - Continue with insulin sliding scale and fingersticks Q6 hrs. H/o drug abuse - Pt was given her methadone dose of 80 Normocytic anemia- likely ACD - Retic count: 1.84, MCV: Normal *Given these findings, most likely ACD. - Will continue to monitor MEJIA, likely 2/2 Hypoperfusion - Resolving - Strict I&Os - Nephrology consulted * Avoid nephrotoxic drugs - Creatinine down from 2.5 to 1.7 Constipation - Resolving - Pt given Miralax for 2 days TID. Passed BM yesterday Septic shock due to pneumonia - Resolved - Leukocytosis trending down, afebrile - Steroids tapered to 5 bid today. Hypoxemic respiratory distress due to pneumonia - Resolved - Nasal cannula to maintain O2 saturation above 90%. - Head of bed above 35 degrees. * CAP VS Aspiration PNA VS Chemical pneumonitis for resolved respiratory distress * Off of ABx - observe Thrombocytopenia likely due to sepsis/septic shock versus HIV status - Resolved - No signs of active bleeding - Will monitor for now Hypokalemia - Resolved DVT and GI PPXHS - Heparin - Protonix Dispo: At this time, patient is stable for discharge tru acute medical conditions. However, before discharge, patient should begin prophylactic therapy for OI's. Pt will need an o/p ECHO after d/c. ECHO in the hospital showed EF 55% with diastolic dysfunction Pt will also need an o/p Sleep Study <Ivy Walsh - Last Filed: 02/15/17 18:07> Objective - Vital Signs/Intake and Output Vital Signs (last 24 hours): Temp Pulse Resp BP Pulse Ox 98.4 F 91 H 20 142/95 H 98 02/15/17 16:30 02/15/17 16:30 02/15/17 16:30 02/15/17 16:30 02/15/17 16:30 Intake and Output: 02/15/17 02/15/17 06:59 18:59 Intake Total 540 Balance 540 - Medications Medications: Current Medications Acetaminophen (Tylenol 325mg Tab) 650 mg PO Q6H PRN PRN Reason: Fever >100.4 F Albuterol/Ipratropium (Duoneb 3 Mg/0.5 Mg (3 Ml) Ud) 3 ml IH [id number] [facility] Last Admin: 02/15/17 14:37 Dose: 3 ml Albuterol/Ipratropium (Duoneb 3 Mg/0.5 Mg (3 Ml) Ud) 3 ml IH Q2H PRN PRN Reason: Shortness of Breath Dapsone (Dapsone) 100 mg PO DAILY [facility] Heparin Sodium (Porcine) (Heparin) 5,000 units SC Q8 [facility] PRN Reason: Protocol Last Admin: 02/15/17 14:17 Dose: 5,000 units Hydrocortisone Sodium Succinate (Solu-Cortef) 5 mg IVP Q12H [facility] Last Admin: 02/15/17 12:36 Dose: 5 mg Ceftriaxone Sodium (Rocephin 1 Gram Ivpb) 1 gm in 100 mls @ 100 mls/hr IVPB DAILY [facility] PRN Reason: Protocol Last Admin: 02/15/17 10:02 Dose: 100 mls/hr Lactated Ringer's (Lactated Ringer's) 1,000 mls @ 100 mls/hr IV .Q10H [facility] Last Admin: 02/14/17 22:23 Dose: Not Given Insulin Human Regular (Humulin R Med) 0 units SC ACHS [facility] PRN Reason: Protocol Last Admin: 02/15/17 16:58 Dose: Not Given Midazolam HCl (Versed Inj) 5 mg IVP Q4H PRN PRN Reason: Agitation Midodrine (Proamatine) 10 mg PO DAILY [facility] Mupirocin (Bactroban Ointment) 0 gm NS BID [facility] Stop: 02/16/17 10:01 Last Admin: 02/15/17 17:51 Dose: 1 applic Pantoprazole Sodium (Protonix Ec Tab) 40 mg PO 0600 [facility] Last Admin: 02/14/17 06:23 Dose: 40 mg Polyethylene Glycol (Miralax) 17 gm PO TID [facility] Last Admin: 02/15/17 17:04 Dose: 17 gm Polysaccharide Iron Complex (Ferrex-150) 150 mg PO DAILY [facility] Last Admin: 02/15/17 10:00 Dose: 150 mg - Labs Labs: 02/15/17 07:20 02/15/17 07:20 Attending/Attestation - Attestation I have personally seen and examined this patient.: Yes I have fully participated in the care of the patient.: Yes I have reviewed all pertinent clinical information, including history, physical exam and plan: Yes Notes (Text): I have seen and examined the patient at bedside. Agree with the above note with the following additions/ exceptions: Briefly this is 36 year old female with PMH of HIV, drug abuse (on methadone), DM- 2, morbidly obese who recently relapsed on heroin is admitted with shortness of breath and was found to have sepsis Shock due to pneumonia, UTI, renal insufficiency due to ATN. Patient is off of pressors and is on tapering dose of steroids. Patient is still coughing however she is able to talk without any difficulty. Continue duonebs, Rocephin. Patient has completed Zithromax. Blood cultures are growing strep pneumonia and 2 nd BC grew coag neg staph. Urine culture is growing proteus. CD4 is 75. As patient is at high risk of opportunistic infection, we will start dapsone as patient has renal insufficiency. We will discuss with ID if pyrimethamine and leucovorin needs to be started. Will resume HIV meds upon discharge as per ID. She has anemia of chronic disease. Methadone dosage was confirmed and was restarted. Renal function is improving. Patient had BM today. Echo revealed EF~ 55% and diastolic dysfunction. Recommended to have a repeat echo as an outpatient. Also recommended to have sleep study as an outpatient. PT eval pending. Upon discharge patient will follow up with Dr Rl Cardenas. Dr Ivy Walsh
[2017-02-15] MEDS: Insulin Reg-MEDIUM-Coverage SC SCH ×2 (12:31→16:58)
--- NOTE | 2017-02-15 14:19 | CP.PCM.PN ---
Subjective - Date & Time of Evaluation Date of Evaluation: 02/15/17 Time of Evaluation: 12:00 - Subjective Subjective: Infectious Disease Follow Up: February 15, 2017 36 yo female with SOB and lethargy. She has a history of HIV, depression, anxiety, and DM. The patient has a history of hemoptysis, shortness of breath, and cough. The patient states symptoms started 1 weeks ago. The patient states that she did relapse with heroin use (inhaled/snorted) 1 week ago. She does NOT want her family to know about her heroin relapse. The patient has had HIV for 16 years. [facility] in the [facility] ( [facility]). She states that she was told her numbers are good but she doesn't know her numbers. The patient does not know if the heroin was cut with any other substance. Feeling better today. Urine culture with gram negative rods >100,000 CFU/ml... identified as Proteus One blood culture from admission with gram positive cocci in chains. A second blood culture taken the next day shows gram positive cocci in chains again. One grew strep pneumoniae and the other was coagulase negative staph. CD4 returned as 75. Objective - Vital Signs/Intake and Output Vital Signs (last 24 hours): Temp Pulse Resp BP Pulse Ox 98 F 87 20 126/76 97 02/15/17 07:30 02/15/17 07:30 02/15/17 07:30 02/15/17 07:30 02/15/17 07:30 Intake and Output: 02/15/17 02/15/17 06:59 18:59 Intake Total 540 Balance 540 - Medications Medications: Current Medications Acetaminophen (Tylenol 325mg Tab) 650 mg PO Q6H PRN PRN Reason: Fever >100.4 F Albuterol/Ipratropium (Duoneb 3 Mg/0.5 Mg (3 Ml) Ud) 3 ml IH [id number] [facility] Last Admin: 02/15/17 07:42 Dose: 3 ml Albuterol/Ipratropium (Duoneb 3 Mg/0.5 Mg (3 Ml) Ud) 3 ml IH Q2H PRN PRN Reason: Shortness of Breath Heparin Sodium (Porcine) (Heparin) 5,000 units SC Q8 ROXI PRN Reason: Protocol Last Admin: 02/14/17 22:22 Dose: Not Given Hydrocortisone Sodium Succinate (Solu-Cortef) 5 mg IVP Q12H [facility] Last Admin: 02/15/17 12:36 Dose: 5 mg Ceftriaxone Sodium (Rocephin 1 Gram Ivpb) 1 gm in 100 mls @ 100 mls/hr IVPB DAILY [facility] PRN Reason: Protocol Last Admin: 02/15/17 10:02 Dose: 100 mls/hr Lactated Ringer's (Lactated Ringer's) 1,000 mls @ 100 mls/hr IV .Q10H [facility] Last Admin: 02/14/17 22:23 Dose: Not Given Insulin Human Regular (Humulin R Med) 0 units SC ACHS [facility] PRN Reason: Protocol Last Admin: 02/15/17 12:31 Dose: Not Given Midazolam HCl (Versed Inj) 5 mg IVP Q4H PRN PRN Reason: Agitation Midodrine (Proamatine) 10 mg PO TID [facility] Last Admin: 02/15/17 10:00 Dose: 10 mg Mupirocin (Bactroban Ointment) 0 gm NS BID [facility] Stop: 02/16/17 10:01 Last Admin: 02/15/17 10:02 Dose: 1 applic Naproxen (Anaprox Ds) 550 mg PO BID [facility] Last Admin: 02/15/17 10:01 Dose: 550 mg Pantoprazole Sodium (Protonix Ec Tab) 40 mg PO 0600 [facility] Last Admin: 02/14/17 06:23 Dose: 40 mg Polyethylene Glycol (Miralax) 17 gm PO TID [facility] Last Admin: 02/15/17 10:02 Dose: 17 gm Polysaccharide Iron Complex (Ferrex-150) 150 mg PO DAILY [facility] Last Admin: 02/15/17 10:00 Dose: 150 mg - Labs Labs: 02/15/17 07:20 02/15/17 07:20 - Constitutional Appears: Non-toxic, No Acute Distress, Chronically Ill - Head Exam Head Exam: ATRAUMATIC, NORMOCEPHALIC - Eye Exam Eye Exam: EOMI, PERRL Pupil Exam: NORMAL ACCOMODATION, PERRL - ENT Exam ENT Exam: Mucous Membranes Moist, Normal External Ear Exam, TM's Normal Bilaterally - Neck Exam Neck Exam: Full ROM, Normal Inspection - Respiratory Exam Respiratory Exam: Decreased Breath Sounds, NORMAL BREATHING PATTERN. absent: Rales, Rhonchi, Wheezes - Cardiovascular Exam Cardiovascular Exam: REGULAR RHYTHM, RRR, +S1, +S2 - GI/Abdominal Exam GI & Abdominal Exam: Soft, Normal Bowel Sounds. absent: Distended, Tenderness - Extremities Exam Extremities Exam: Full ROM, Normal Inspection - Neurological Exam Neurological Exam: Alert, Awake, CN II-XII Intact, Oriented x3 - Psychiatric Exam Psychiatric exam: Normal Affect, Normal Mood - Skin Skin Exam: Intact, Normal Color Assessment and Plan - Assessment and Plan (Free Text) Assessment: 36 yo morbidly obese female with HIV for the past 16 year (treated in [facility] at the [facility] site) presenting with hemoptysis, cough, and SOB. The patient states that she did relapse with her heroin use. The patient inhaled/snorted heroin one week ago and the symptoms started after that. Cannot rule out CAP, aspiration pneumonia, and/or chemical pneumonitis. The patient may need bronchoscopy if hemoptysis continues. Need to obtain the patient's CD4 and viral load. Should be retested in hospital as well as values obtained from her HIV clinic. The patient follows every 3-6 months with the clinic. CD4 is 75 and the HIV viral load log is 2.95. Continue IV antibiotics with Rocephin and Azithromycin for now. May need to broaden coverage to Zosyn from Rocephin if fevers return and/or leukocytosis persists. However, afebrile and leukocytosis has been improving. Await culture identification of the urine culture and the blood culture. Blood cultures taken a day after admission is showing gram positive cocci in chains. Added Vancomycin IV. UTI with proteus sensitive to Rocephin. Continue Rocephin treatment. Supportive care. Thank you for allowing me to participate in the care of the patient, we will follow with you.
[2017-02-15] MEDS ORDERED: Tmp-Smz 800 mg-160 mg DS Tab PO SCH (18:00)
[2017-02-16] MEDS: Insulin Reg-MEDIUM-Coverage SC SCH ×2 (00:17→08:38)
[2017-02-16] MEDS: Albuterol-Ipratrop 3 mg / 0.5 (3 ml) UD IH SCH ×3 (01:37→13:28)
[2017-02-16] MEDS: Pantoprazole 40 mg EC Tab PO SCH (06:17)
[2017-02-16 07:50] VITALS: O2SAT 96
[2017-02-16] MEDS: POLYETHYLENE GLYCOL 3350 17 GM/Dose PACKET PO SCH (09:30)
[2017-02-16] MEDS: cefTRIAXone 1 gm 1 GM/100 ML BAG IVPB SCH (09:30)
--- NOTE | 2017-02-16 09:34 | PN ---
DATE: 02/15/2017 SUBJECTIVE: The patient is seen . PHYSICAL EXAMINATION: VITAL SIGNS: Blood pressure 142/95, heart rate 91, respiratory rate 20, temperature 98.4. HEENT: Normocephalic, atraumatic, positive pallor. NECK: Supple, no JVD. LUNGS: Bilateral rhonchi, equal expansion, equal air entry. CARDIAC: S1 and S2, regular rate and rhythm. No murmur, no rub. ABDOMEN: Obese, distended, soft, nontender, bowel sounds present. EXTREMITIES: No lower extremity edema. INTAKE AND OUTPUT: 1020/not charted. LABORATORY DATA: WBC 7, hemoglobin 9.3, hematocrit 30, platelets 146. Sodium 142, potassium 4.6, chloride 108, CO2 of 26, BUN 36, creatinine 1.7, glucose 78, calcium 8.7, AST 46, ALT 23, and albumin 3.1. CURRENT MEDICATIONS: Dapsone, DuoNeb, iron, heparin subcu, insulin, MiraLax, ProAmatine, Protonix, Rocephin 1 g daily, Solu-Cortef, Tylenol, and Xanax. ASSESSMENT: 1. Acute kidney injury, acute tubular necrosis in the setting of severe sepsis, resolving. 2. Resolved hypotension, change ProAmatine to daily and then stop. 3. Sepsis, pneumonia. 4. Human immunodeficiency virus. 5. Morbid obesity. 6. Chronic pain. PLAN: 1. Change ProAmatine to daily. 2. Continue antibiotics as per ID recommendations. 3. Avoid nephrotoxins. 4. Push p.o. fluids. 5. Brook Antonio MD
[2017-02-16] MEDS: Iron Complex Polysacch 150mg Cap PO SCH (09:40)
--- NOTE | 2017-02-16 14:20 | CP.PCM.DIS ---
<Buddy Shay - Last Filed: 02/16/17 16:16> Provider - Provider Date of Admission: 02/09/17 22:19 Attending physician: Ivy Walsh MD Consults: ID: Dr. Barker ICU: Dr. Gaston Time Spent in preparation of Discharge (in minutes): 45 Hospital Course - Lab Results Lab Results: Micro Results 02/10/17 08:20 Blood-Thru Central Line S.aureus & Coag-Neg Staph PNA FISH - Final 02/10/17 08:20 Blood-Thru Central Line Blood Culture - Final Coagulase Neg Staphylococcus 02/10/17 08:20 Blood-Thru Central Line Gram Stain - Final 02/09/17 22:50 Urine,Clean Catch Urine Culture - Final Proteus Mirabilis 02/10/17 00:30 Nose MRSA Culture (Admit) - Final MRSA DETECTED Most Recent Lab Values WBC 7.1 10^3/ul (4.5-11.0) 02/15/17 07:20 RBC 3.36 10^6/uL (3.5-6.1) L 02/15/17 07:20 Hgb 9.3 g/dL (12.0-16.0) L 02/15/17 07:20 Hct 30.6 % (36.0-48.0) L 02/15/17 07:20 MCV 91.1 fl (80.0-105.0) 02/15/17 07:20 MCH 27.7 pg (25.0-35.0) 02/15/17 07:20 MCHC 30.4 g/dl (31.0-37.0) L 02/15/17 07:20 RDW 15.2 % (11.5-14.5) H 02/15/17 07:20 Plt Count 146 10^3/uL (120.0-450.0) 02/15/17 07:20 MPV 11.4 fl (7.0-11.0) H 02/15/17 07:20 Gran % 69.6 % (50.0-68.0) H 02/15/17 07:20 Lymph % (Auto) 20.6 % (22.0-35.0) L 02/15/17 07:20 [place] % (Auto) 8.4 % (1.0-6.0) H 02/15/17 07:20 Eos % (Auto) 0.8 % (1.5-5.0) L 02/15/17 07:20 Baso % (Auto) 0.6 % (0.0-3.0) 02/15/17 07:20 Gran # 4.96 (1.4-6.5) 02/15/17 07:20 Lymph # 1.5 (1.2-3.4) 02/15/17 07:20 [place] # 0.6 (0.1-0.6) 02/15/17 07:20 Eos # 0.1 (0.0-0.7) 02/15/17 07:20 Baso # 0.04 K/mm3 (0.0-2.0) 02/15/17 07:20 ESR 125 mm/hr (0.0-20.0) H 02/09/17 22:40 Retic Count 1.84 % (0.5-1.5) H 02/10/17 05:15 D-Dimer, Quantitative 800 ng/mL (0-243) H 02/09/17 19:50 pCO2 39 mm/Hg (35-45) 02/10/17 08:30 pO2 73.0 mm/Hg (80-100) L 02/10/17 08:30 HCO3 20.1 mmol/L (21-28) L 02/10/17 08:30 ABG pH 7.32 (7.35-7.45) L 02/10/17 08:30 ABG Total CO2 21.3 mmol.L (22-28) L 02/10/17 08:30 ABG O2 Saturation 96.1 % (95-98) 02/10/17 08:30 ABG O2 Content 12.0 ML/dl (15-23) L 02/09/17 21:09 ABG Base Excess -5.6 mmol/L (-2.0-3.0) L 02/10/17 08:30 ABG Hemoglobin 9.2 g/dL (11.7-17.4) L 02/09/17 21:09 ABG Carboxyhemoglobin 4.5 % (0.5-1.5) H 02/09/17 21:09 POC ABG HHb (Measured) 2.7 % (0-5) 02/09/17 21:09 ABG Methemoglobin 0.8 % (0.0-3.0) 02/09/17 21:09 ABG O2 Capacity 12.4 mL/dl (16-24) L 02/09/17 21:09 ABG Potassium 3.3 mmol/L (3.6-5.2) L 02/10/17 08:30 VBG pH 7.29 (7.32-7.43) L 02/10/17 07:10 VBG pCO2 45.0 (40-60) 02/10/17 07:10 VBG HCO3 21.6 mmol/l (21-28) 02/10/17 07:10 VBG Total CO2 23.0 mmol.L (22-28) 02/10/17 07:10 VBG O2 Sat (Calc) 95.3 % (40-65) H 02/10/17 07:10 VBG Base Excess -5.0 mmol/L (0.0-2.0) L 02/10/17 07:10 VBG Potassium 3.7 mmol/L (3.6-5.2) 02/10/17 07:10 Hgb O2 Saturation 91.9 % (95.0-98.0) L 02/09/17 21:09 Sodium 134.0 mmol/L (132-148) 02/10/17 08:30 Chloride 104.0 mmol/L (98-107) 02/10/17 08:30 Glucose 104 mg/dl (65-105) 02/10/17 08:30 Lactate 1.1 mmol/L (0.7-2.1) 02/10/17 08:30 FiO2 43.0 % 02/10/17 08:30 Sodium 142 mmol/L (132-148) 02/15/17 07:20 Potassium 4.6 mmol/L (3.6-5.0) 02/15/17 07:20 Chloride 108 mmol/L (98-107) H 02/15/17 07:20 Carbon Dioxide 26 mmol/L (21-33) 02/15/17 07:20 Anion Gap 13 (10-20) 02/15/17 07:20 BUN 36 mg/dL (7-21) H 02/15/17 07:20 Creatinine 1.7 mg/dl (0.7-1.2) H 02/15/17 07:20 Est GFR ( Amer) 41 02/15/17 07:20 Est GFR (Non-Af Amer) 34 02/15/17 07:20 POC Glucose (mg/dL) 69 mg/dL (65-110) 02/16/17 11:46 Random Glucose 78 mg/dL (70-110) 02/15/17 07:20 Calcium 8.7 mg/dL (8.4-10.5) 02/15/17 07:20 Phosphorus 3.4 mg/dL (2.5-4.5) 02/12/17 06:00 Magnesium 2.3 mg/dL (1.7-2.2) H 02/12/17 06:00 Iron 18 ug/dL (45-180) L 02/10/17 05:15 TIBC 261 ug/dL (265-497) L 02/10/17 05:15 % Saturation 7 % (20-55) L 02/10/17 05:15 Ferritin 120.0 ng/mL 02/10/17 05:15 Total Bilirubin 0.6 mg/dL (0.2-1.3) 02/15/17 07:20 AST 46 U/L (14-36) H D 02/15/17 07:20 ALT 23 U/L (7-56) 02/15/17 07:20 Alkaline Phosphatase 81 U/L (38-126) 02/15/17 07:20 Ammonia < 9 umol/L (9-33) L 02/09/17 22:55 Lactate Dehydrogenase 569 U/L (333-699) 02/09/17 22:40 Total Creatine Kinase 419 U/L (35-230) H 02/09/17 19:50 CK-MB (CK-2) 9.9 ng/mL (0.0-3.6) H 02/09/17 19:50 CK-MB (CK-2) % 2.4 % (2.5-3.0) L 02/09/17 19:50 Troponin I < 0.01 ng/mL 02/09/17 19:50 C-React Prot High Sens > 15.00 mg/L (1.00-3.00) H 02/11/17 10:10 NT-Pro-B Natriuret Pep 7020 pg/mL (0-450) H 02/09/17 19:50 Total Protein 7.6 g/dL (5.8-8.3) 02/15/17 07:20 Albumin 3.1 g/dL (3.0-4.8) 02/15/17 07:20 Globulin 4.5 gm/dL 02/15/17 07:20 Albumin/Globulin Ratio 0.7 (1.1-1.8) L 02/15/17 07:20 Vitamin B12 916 pg/mL (239-931) 02/10/17 05:15 Folate 7.7 ng/mL 02/10/17 05:15 Procalcitonin 2.93 NG/ML (0.19-0.49) H 02/11/17 10:10 Arterial Blood Potassium 3.3 mmol/L (3.6-5.2) L 02/10/17 08:30 Venous Blood Potassium 3.7 mmol/L (3.6-5.2) 02/10/17 07:10 Urine Color Yellow (YELLOW) 02/09/17 21:11 Urine Appearance Sl cloudy (CLEAR) 02/09/17 21:11 Urine pH 6.0 (4.7-8.0) 02/09/17 21:11 Ur Specific [place] 1.015 (1.005-1.035) 02/09/17 21:11 Urine Protein 30 mg/dL (<30 mg/dL) H 02/09/17 21:11 Urine Glucose (UA) Negative mg/dL (NEGATIVE) 02/09/17 21:11 Urine Ketones Negative mg/dL (NEGATIVE) 02/09/17 21:11 Urine Blood Moderate (NEGATIVE) H 02/09/17 21:11 Urine Nitrate Negative (NEGATIVE) 02/09/17 21:11 Urine Bilirubin Negative (NEGATIVE) 02/09/17 21:11 Urine Urobilinogen 0.2 E.U./dL (<1 E.U./dL) 02/09/17 21:11 Ur Leukocyte Esterase Large Izzy/uL (NEGATIVE) H 02/09/17 21:11 Urine RBC 5 - 10 /hpf (0-2) 02/09/17 21:11 Urine WBC 25 - 30 /hpf (0-6) 02/09/17 21:11 Ur Epithelial Cells 1 - 3 /hpf (0-5) 02/09/17 21:11 Urine Bacteria Many (NEG) 02/09/17 21:11 Urine Eosinophils Negative 02/10/17 19:54 Urine Osmolality 344 mosm/kg (300-1000) 02/10/17 03:30 Ur Random Creatinine 81 mg/dL 02/10/17 19:54 Ur Random Sodium 14 meq/L 02/10/17 03:30 Ur Random Potassium 55.9 meq/L 02/10/17 03:30 Urine Opiates Screen Negative (NEGATIVE) 02/09/17 21:11 Urine Methadone Screen Positive (NEGATIVE) H 02/09/17 21:11 Ur Barbiturates Screen Negative (NEGATIVE) 02/09/17 21:11 Ur Phencyclidine Scrn Negative (NEGATIVE) 02/09/17 21:11 Ur Amphetamines Screen Negative (NEGATIVE) 02/09/17 21:11 U Benzodiazepines Scrn Positive (NEGATIVE) 02/09/17 21:11 U Oth Cocaine Metabols Negative (NEGATIVE) 02/09/17 21:11 U Cannabinoids Screen Negative (NEGATIVE) 02/09/17 21:11 Absolute Lymphs (Flow) 394 Cells/mcL (850-3900) L 02/09/17 22:55 % CD4 Cells 19 Percent (30-61) L 02/09/17 22:55 Absolute CD4 Count 75 Cells/mcL (490-1740) L 02/09/17 22:55 T-Help/Suppress Ratio 0.27 Ratio (0.86-5.00) L 02/09/17 22:55 % CD8 Cells 70 Percent (12-42) H 02/09/17 22:55 Absolute CD8 Count 275 Cells/mcL (180-1170) 02/09/17 22:55 T-Lymph Analys Comment See note 02/09/17 22:55 HIV-1 RNA Qnt (RT-PCR) 2.95 (<1.30) H 02/09/17 22:55 Influenza Type A Ab 1:32 titer (<1:8) H 02/10/17 08:30 Influenza Type B Ab 1:16 titer (<1:8) H 02/10/17 08:30 Ur L.pneumophila Ag Negative (NEGATIVE) 02/10/17 03:30 Mycoplasma pneumon IgG <=0.90 (<=0.90) 02/09/17 22:55 Mycoplasma pneumon IgM 29 U/mL (<770) 02/09/17 22:55 Ur Strep pneumoniae Ag Detected H 02/10/17 03:30 - Hospital Course Hospital Course: HPI: 36 yo female with PMH of HIV, drug abuse, diabetes presents to ED with SOB and coughing blood since yesterday. Patient is mildly confused but is able to answer questions. Per patient she has had a cough for past few months however yesterday she began coughing up blood. She also reports left sided chest wall, flank and back pain. She states the pain is worse with inspiration. Patient states that she snorted 3-4 bags of belem today. She states that she is on methadone but currently can not recall the name of the clinic. Patient has history of HIV, she states that she is complaint with medications, she does not know viral load of CD4 count. Patient is a smoker. Hospital Course: Imaging: CXR: PNA LML and RLL (possible) CT Chest: EDMUNDO PNA, Minimal airspace dz in LLL, RUL; Mediastinal adenopathy ; Splenomegaly Ms. Coleman presented with a multitude of problems and was placed in the ICU upon admission. She was found to have septic shock 2/2 PNA, a UTI, renal insufficiency 2/2 ATN, and thrombocytopenia 2/2 septic shock and HIV status. Throughout the course of her stay, patient's pna and sob resolved, and she was able to breath without nasal cannula on day of discharge. Her MEJIA 2/2 hypoperfusion also resolved, with her CR on d/c at 1.3 ( down from 2.5. Of note, patient's CD 4 counts were obtained in the hospital, and found to be 75 , indicative of full blown AIDS. Per GI, patient was placed on Dapsone for OI prophylaxis, the drug was chosen keeping her ARF in mind. Patient is advised to f/u with her HIV clinic and be more rigorous with her regimen. Patient only had withdrawal symptoms from her HIV for one morning. Her normal dose of methadone was restarted, and no issues occurred after that. Finally, patient was also constipated in the hospital, which was relieved with Miralax - with a disharge medication of iron, she has also been given home rx for Miralax. Discharge Exam - Head Exam Head Exam: ATRAUMATIC, NORMOCEPHALIC - Additional Findings Additional findings: Phys Exam: VS as below Const'l: a&o x 4, nad, obese woman Head/Neck: neck supple, no jvd, trachea midline, carotid midline, no cervical /head mass Eyes: nj, nonicteric sclera, eom intact ENT: auditory acuity grossly intact, throat not congested, no nasal deformity Cardio: rrr, no m/r/g, no carotid bruit, nml s1, s2 Pulm: +left sided decreased breath sounds - resolved; no accessory muscle use ;l nml breath sounds bilaterally, ctab Abd: s/nt/nd, nbs x 4 q, no palpable masses Derm: no rashes, no ulcers, no lesions Extr: no edema, no cyanosis, no calf tenderness, no lesions, no varicosities Neuro: cn II-XII grossly intact, ue and le 5/5 muscle strength bilaterally, no los ue, le bilaterally and core Discharge Plan - Discharge Medications Prescriptions: Albuterol HFA [Ventolin HFA 90 mcg/actuation (8 g)] 200 puff IH Q6 PRN #2 puff PRN Reason: Shortnes of Breath Cefdinir [Omnicef] 300 mg PO BID 7 Days #14 cap Dapsone 100 mg PO DAILY #14 tab Fluticasone/Salmeterol [Advair 250-50 Diskus] 1 each IH BID #1 blst.w.dev Iron Polysaccharide [Ferrex-150] 150 mg PO DAILY #30 cap Polyethylene Glycol 3350 [Miralax] 17 gm PO BID #60 packet - Follow Up Plan Condition: SERIOUS Disposition: HOME/ ROUTINE Instructions: Methadone (By mouth), Renal Failure Diet (DC), Cigarette Smoking and Your Health (GEN), Narcotic Abuse (DC), Influenza (GEN), Weight Management ( DC), Aspiration Pneumonia (DC), Basic Carbohydrate Counting (DC), Meal Planning with Diabetes Exchanges (DC), AIDS (DC) Additional Instructions: 1.) Please take your Dapsone as Rx'd, as this is important given your new CD4 count 2.) Please take your iron as Rx'd as well as your Miralax - the Miralax will help with constipation due to iron 3.) Please take your new inhalers as prescribed. Advair daily and Ventolin if you experience sudden shortness of breath. 4.) Should your symptoms persist or worsen, please return to the emergency department [place] 5.) Please follow up with your HIV Clinic outpatient and inform them of your new CD4 counts <Ivy Walsh - Last Filed: 02/17/17 11:25> Provider - Provider Date of Admission: 02/09/17 22:19 Attending physician: Ivy Walsh MD Hospital Course - Lab Results Lab Results: Micro Results 02/10/17 08:20 Blood-Thru Central Line S.aureus & Coag-Neg Staph PNA FISH - Final 02/10/17 08:20 Blood-Thru Central Line Blood Culture - Final Coagulase Neg Staphylococcus 02/10/17 08:20 Blood-Thru Central Line Gram Stain - Final 02/09/17 22:50 Urine,Clean Catch Urine Culture - Final Proteus Mirabilis 02/10/17 00:30 Nose MRSA Culture (Admit) - Final MRSA DETECTED Most Recent Lab Values WBC 7.1 10^3/ul (4.5-11.0) 02/15/17 07:20 RBC 3.36 10^6/uL (3.5-6.1) L 02/15/17 07:20 Hgb 9.3 g/dL (12.0-16.0) L 02/15/17 07:20 Hct 30.6 % (36.0-48.0) L 02/15/17 07:20 MCV 91.1 fl (80.0-105.0) 02/15/17 07:20 MCH 27.7 pg (25.0-35.0) 02/15/17 07:20 MCHC 30.4 g/dl (31.0-37.0) L 02/15/17 07:20 RDW 15.2 % (11.5-14.5) H 02/15/17 07:20 Plt Count 146 10^3/uL (120.0-450.0) 02/15/17 07:20 MPV 11.4 fl (7.0-11.0) H 02/15/17 07:20 Gran % 69.6 % (50.0-68.0) H 02/15/17 07:20 Lymph % (Auto) 20.6 % (22.0-35.0) L 02/15/17 07:20 [place] % (Auto) 8.4 % (1.0-6.0) H 02/15/17 07:20 Eos % (Auto) 0.8 % (1.5-5.0) L 02/15/17 07:20 Baso % (Auto) 0.6 % (0.0-3.0) 02/15/17 07:20 Gran # 4.96 (1.4-6.5) 02/15/17 07:20 Lymph # 1.5 (1.2-3.4) 02/15/17 07:20 [place] # 0.6 (0.1-0.6) 02/15/17 07:20 Eos # 0.1 (0.0-0.7) 02/15/17 07:20 Baso # 0.04 K/mm3 (0.0-2.0) 02/15/17 07:20 ESR 125 mm/hr (0.0-20.0) H 02/09/17 22:40 Retic Count 1.84 % (0.5-1.5) H 02/10/17 05:15 D-Dimer, Quantitative 800 ng/mL (0-243) H 02/09/17 19:50 pCO2 39 mm/Hg (35-45) 02/10/17 08:30 pO2 73.0 mm/Hg (80-100) L 02/10/17 08:30 HCO3 20.1 mmol/L (21-28) L 02/10/17 08:30 ABG pH 7.32 (7.35-7.45) L 02/10/17 08:30 ABG Total CO2 21.3 mmol.L (22-28) L 02/10/17 08:30 ABG O2 Saturation 96.1 % (95-98) 02/10/17 08:30 ABG O2 Content 12.0 ML/dl (15-23) L 02/09/17 21:09 ABG Base Excess -5.6 mmol/L (-2.0-3.0) L 02/10/17 08:30 ABG Hemoglobin 9.2 g/dL (11.7-17.4) L 02/09/17 21:09 ABG Carboxyhemoglobin 4.5 % (0.5-1.5) H 02/09/17 21:09 POC ABG HHb (Measured) 2.7 % (0-5) 02/09/17 21:09 ABG Methemoglobin 0.8 % (0.0-3.0) 02/09/17 21:09 ABG O2 Capacity 12.4 mL/dl (16-24) L 02/09/17 21:09 ABG Potassium 3.3 mmol/L (3.6-5.2) L 02/10/17 08:30 VBG pH 7.29 (7.32-7.43) L 02/10/17 07:10 VBG pCO2 45.0 (40-60) 02/10/17 07:10 VBG HCO3 21.6 mmol/l (21-28) 02/10/17 07:10 VBG Total CO2 23.0 mmol.L (22-28) 02/10/17 07:10 VBG O2 Sat (Calc) 95.3 % (40-65) H 02/10/17 07:10 VBG Base Excess -5.0 mmol/L (0.0-2.0) L 02/10/17 07:10 VBG Potassium 3.7 mmol/L (3.6-5.2) 02/10/17 07:10 Hgb O2 Saturation 91.9 % (95.0-98.0) L 02/09/17 21:09 Sodium 134.0 mmol/L (132-148) 02/10/17 08:30 Chloride 104.0 mmol/L (98-107) 02/10/17 08:30 Glucose 104 mg/dl (65-105) 02/10/17 08:30 Lactate 1.1 mmol/L (0.7-2.1) 02/10/17 08:30 FiO2 43.0 % 02/10/17 08:30 Sodium 142 mmol/L (132-148) 02/15/17 07:20 Potassium 4.6 mmol/L (3.6-5.0) 02/15/17 07:20 Chloride 108 mmol/L (98-107) H 02/15/17 07:20 Carbon Dioxide 26 mmol/L (21-33) 02/15/17 07:20 Anion Gap 13 (10-20) 02/15/17 07:20 BUN 36 mg/dL (7-21) H 02/15/17 07:20 Creatinine 1.7 mg/dl (0.7-1.2) H 02/15/17 07:20 Est GFR ( Amer) 41 02/15/17 07:20 Est GFR (Non-Af Amer) 34 02/15/17 07:20 POC Glucose (mg/dL) 69 mg/dL (65-110) 02/16/17 11:46 Random Glucose 78 mg/dL (70-110) 02/15/17 07:20 Calcium 8.7 mg/dL (8.4-10.5) 02/15/17 07:20 Phosphorus 3.4 mg/dL (2.5-4.5) 02/12/17 06:00 Magnesium 2.3 mg/dL (1.7-2.2) H 02/12/17 06:00 Iron 18 ug/dL (45-180) L 02/10/17 05:15 TIBC 261 ug/dL (265-497) L 02/10/17 05:15 % Saturation 7 % (20-55) L 02/10/17 05:15 Ferritin 120.0 ng/mL 02/10/17 05:15 Total Bilirubin 0.6 mg/dL (0.2-1.3) 02/15/17 07:20 AST 46 U/L (14-36) H D 02/15/17 07:20 ALT 23 U/L (7-56) 02/15/17 07:20 Alkaline Phosphatase 81 U/L (38-126) 02/15/17 07:20 Ammonia < 9 umol/L (9-33) L 02/09/17 22:55 Lactate Dehydrogenase 569 U/L (333-699) 02/09/17 22:40 Total Creatine Kinase 419 U/L (35-230) H 02/09/17 19:50 CK-MB (CK-2) 9.9 ng/mL (0.0-3.6) H 02/09/17 19:50 CK-MB (CK-2) % 2.4 % (2.5-3.0) L 02/09/17 19:50 Troponin I < 0.01 ng/mL 02/09/17 19:50 C-React Prot High Sens > 15.00 mg/L (1.00-3.00) H 02/11/17 10:10 NT-Pro-B Natriuret Pep 7020 pg/mL (0-450) H 02/09/17 19:50 Total Protein 7.6 g/dL (5.8-8.3) 02/15/17 07:20 Albumin 3.1 g/dL (3.0-4.8) 02/15/17 07:20 Globulin 4.5 gm/dL 02/15/17 07:20 Albumin/Globulin Ratio 0.7 (1.1-1.8) L 02/15/17 07:20 Vitamin B12 916 pg/mL (239-931) 02/10/17 05:15 Folate 7.7 ng/mL 02/10/17 05:15 Procalcitonin 2.93 NG/ML (0.19-0.49) H 02/11/17 10:10 Arterial Blood Potassium 3.3 mmol/L (3.6-5.2) L 02/10/17 08:30 Venous Blood Potassium 3.7 mmol/L (3.6-5.2) 02/10/17 07:10 Urine Color Yellow (YELLOW) 02/09/17 21:11 Urine Appearance Sl cloudy (CLEAR) 02/09/17 21:11 Urine pH 6.0 (4.7-8.0) 02/09/17 21:11 Ur Specific [place] 1.015 (1.005-1.035) 02/09/17 21:11 Urine Protein 30 mg/dL (<30 mg/dL) H 02/09/17 21:11 Urine Glucose (UA) Negative mg/dL (NEGATIVE) 02/09/17 21:11 Urine Ketones Negative mg/dL (NEGATIVE) 02/09/17 21:11 Urine Blood Moderate (NEGATIVE) H 02/09/17 21:11 Urine Nitrate Negative (NEGATIVE) 02/09/17 21:11 Urine Bilirubin Negative (NEGATIVE) 02/09/17 21:11 Urine Urobilinogen 0.2 E.U./dL (<1 E.U./dL) 02/09/17 21:11 Ur Leukocyte Esterase Large Izzy/uL (NEGATIVE) H 02/09/17 21:11 Urine RBC 5 - 10 /hpf (0-2) 02/09/17 21:11 Urine WBC 25 - 30 /hpf (0-6) 02/09/17 21:11 Ur Epithelial Cells 1 - 3 /hpf (0-5) 02/09/17 21:11 Urine Bacteria Many (NEG) 02/09/17 21:11 Urine Eosinophils Negative 02/10/17 19:54 Urine Osmolality 344 mosm/kg (300-1000) 02/10/17 03:30 Ur Random Creatinine 81 mg/dL 02/10/17 19:54 Ur Random Sodium 14 meq/L 02/10/17 03:30 Ur Random Potassium 55.9 meq/L 02/10/17 03:30 Urine Opiates Screen Negative (NEGATIVE) 02/09/17 21:11 Urine Methadone Screen Positive (NEGATIVE) H 02/09/17 21:11 Ur Barbiturates Screen Negative (NEGATIVE) 02/09/17 21:11 Ur Phencyclidine Scrn Negative (NEGATIVE) 02/09/17 21:11 Ur Amphetamines Screen Negative (NEGATIVE) 02/09/17 21:11 U Benzodiazepines Scrn Positive (NEGATIVE) 02/09/17 21:11 U Oth Cocaine Metabols Negative (NEGATIVE) 02/09/17 21:11 U Cannabinoids Screen Negative (NEGATIVE) 02/09/17 21:11 Absolute Lymphs (Flow) 394 Cells/mcL (850-3900) L 02/09/17 22:55 % CD4 Cells 19 Percent (30-61) L 02/09/17 22:55 Absolute CD4 Count 75 Cells/mcL (490-1740) L 02/09/17 22:55 T-Help/Suppress Ratio 0.27 Ratio (0.86-5.00) L 02/09/17 22:55 % CD8 Cells 70 Percent (12-42) H 02/09/17 22:55 Absolute CD8 Count 275 Cells/mcL (180-1170) 02/09/17 22:55 T-Lymph Analys Comment See note 02/09/17 22:55 HIV-1 RNA Qnt (RT-PCR) 2.95 (<1.30) H 02/09/17 22:55 Influenza Type A Ab 1:32 titer (<1:8) H 02/10/17 08:30 Influenza Type B Ab 1:16 titer (<1:8) H 02/10/17 08:30 Ur L.pneumophila Ag Negative (NEGATIVE) 02/10/17 03:30 Mycoplasma pneumon IgG <=0.90 (<=0.90) 02/09/17 22:55 Mycoplasma pneumon IgM 29 U/mL (<770) 02/09/17 22:55 Ur Strep pneumoniae Ag Detected H 02/10/17 03:30 Attending/Attestation - Attestation I have personally seen and examined this patient.: Yes I have fully participated in the care of the patient.: Yes I have reviewed all pertinent clinical information, including history, physical exam and plan: Yes Notes (Text): I have seen and examined the patient at bedside. Agree with the above note with the following additions/ exceptions: Briefly this is 36 year old female with PMH of HIV, drug abuse (on methadone), DM- 2, morbidly obese who recently relapsed on heroin was admitted with shortness of breath and was found to have sepsis Shock due to pneumonia, UTI, renal insufficiency due to ATN. Patient feels well today and is able to talk in complete sentences without difficulty. PT cleared the patient to go home. Her sats remained fine even while ambulation. Patient was given Zithro and Rocephin during hospitalization. Blood cultures grew strep pneumonia and 2 nd BC grew coag neg staph. Urine culture is growing proteus. CD4 is 75. As patient is at high risk of opportunistic infection, she was started on dapsone as patient has renal insufficiency . Dapsone will be continued. Start omnicef to cover bacteremia to complete total 14 days. Will resume HIV meds upon discharge as per ID. She has anemia of chronic disease. Continue to follow up in HIV clinic and methadone clinic. Renal function is improving. Advised patient to have a repeat blood work in 1 week. Echo revealed EF~55% and diastolic dysfunction. Recommended to have a repeat echo as an outpatient. Also recommended to have sleep study as an outpatient. Upon discharge patient will follow up with Dr Rl Cardenas. Dr Ivy Walsh
[2017-02-16 16:13] VITALS: BP 158/100; PULSE 84; RESP 18; TEMP 97.9
--- NOTE | 2017-02-16 16:50 | CP.PCM.PN ---
Subjective - Date & Time of Evaluation Date of Evaluation: 02/16/17 Time of Evaluation: 15:00 - Subjective Subjective: Infectious Disease Follow Up: February 16, 2017 36 yo female with SOB and lethargy. She has a history of HIV, depression, anxiety, and DM. The patient has a history of hemoptysis, shortness of breath, and cough. The patient states symptoms started 1 weeks ago. The patient states that she did relapse with heroin use (inhaled/snorted) 1 week ago. She does NOT want her family to know about her heroin relapse. The patient has had HIV for 16 years. [place] [facility] [place] [facility] [place] [facility] She states that she was told her numbers are good but she doesn't know her numbers. The patient does not know if the heroin was cut with any other substance. Feeling better today. Urine culture with gram negative rods >100,000 CFU/ml... identified as Proteus One blood culture from admission with gram positive cocci in chains. A second blood culture taken the next day shows gram positive cocci in chains again. One grew strep pneumoniae and the other was coagulase negative staph. CD4 returned as 75. Objective - Vital Signs/Intake and Output Vital Signs (last 24 hours): Temp Pulse Resp BP Pulse Ox 97.9 F 84 18 158/100 H 96 02/16/17 16:12 02/16/17 16:12 02/16/17 16:12 02/16/17 16:12 02/16/17 16:12 Intake and Output: 02/16/17 02/16/17 06:59 18:59 Intake Total 1960 Output Total 675 Balance 1285 - Medications Medications: Current Medications Albuterol/Ipratropium (Duoneb 3 Mg/0.5 Mg (3 Ml) Ud) 3 ml IH [id number] [facility] Last Admin: 02/16/17 13:28 Dose: 3 ml Albuterol/Ipratropium (Duoneb 3 Mg/0.5 Mg (3 Ml) Ud) 3 ml IH Q2H PRN PRN Reason: Shortness of Breath Dapsone (Dapsone) 100 mg PO DAILY [facility] Last Admin: 02/16/17 09:49 Dose: 100 mg Insulin Human Regular (Humulin R Med) 0 units SC ACHS [facility] PRN Reason: Protocol Last Admin: 02/16/17 08:38 Dose: Not Given Midazolam HCl (Versed Inj) 5 mg IVP Q4H PRN PRN Reason: Agitation Pantoprazole Sodium (Protonix Ec Tab) 40 mg PO 0600 [facility] Last Admin: 02/16/17 06:17 Dose: 40 mg Polyethylene Glycol (Miralax) 17 gm PO TID [facility] Last Admin: 02/16/17 09:30 Dose: 17 gm Polysaccharide Iron Complex (Ferrex-150) 150 mg PO DAILY [facility] Last Admin: 02/16/17 09:40 Dose: Not Given - Labs Labs: 02/15/17 07:20 02/15/17 07:20 - Constitutional Appears: Non-toxic, No Acute Distress, Chronically Ill - Head Exam Head Exam: ATRAUMATIC, NORMOCEPHALIC - Eye Exam Eye Exam: EOMI, PERRL Pupil Exam: NORMAL ACCOMODATION, PERRL - ENT Exam ENT Exam: Mucous Membranes Moist, Normal External Ear Exam, TM's Normal Bilaterally - Neck Exam Neck Exam: Full ROM, Normal Inspection - Respiratory Exam Respiratory Exam: Decreased Breath Sounds, NORMAL BREATHING PATTERN. absent: Rales, Rhonchi, Wheezes - Cardiovascular Exam Cardiovascular Exam: REGULAR RHYTHM, RRR, +S1, +S2 - GI/Abdominal Exam GI & Abdominal Exam: Soft, Normal Bowel Sounds. absent: Distended, Tenderness - Extremities Exam Extremities Exam: Full ROM, Normal Inspection - Neurological Exam Neurological Exam: Alert, Awake, CN II-XII Intact, Oriented x3 - Psychiatric Exam Psychiatric exam: Normal Affect, Normal Mood - Skin Skin Exam: Intact, Normal Color Assessment and Plan - Assessment and Plan (Free Text) Assessment: 36 yo morbidly obese female with HIV for the past 16 year ([place] [facility] [place] [facility] [place] [facility] [place] presenting with hemoptysis, cough, and SOB. The patient states that she did relapse with her heroin use. The patient inhaled/snorted heroin one week ago and the symptoms started after that. Cannot rule out CAP, aspiration pneumonia, and/or chemical pneumonitis. The patient may need bronchoscopy if hemoptysis continues. Need to obtain the patient's CD4 and viral load. Should be retested in hospital as well as values obtained from her HIV clinic. The patient follows every 3-6 months with the clinic. CD4 is 75 and the HIV viral load log is 2.95. Consider use of Dapsone 100mg daily for prophylaxis. Continue IV antibiotics with Rocephin and Azithromycin for now. May need to broaden coverage to Zosyn from Rocephin if fevers return and/or leukocytosis persists. However, afebrile and leukocytosis has been improving. Await culture identification of the urine culture and the blood culture. Blood cultures taken a day after admission is showing gram positive cocci in chains. Continuing Vancomycin IV. UTI with proteus sensitive to Rocephin. Continue Rocephin treatment. Supportive care. Thank you for allowing me to participate in the care of the patient, we will follow with you.
== END 2017-02-16 19:00 | disposition home or self-care (01) | DRG 710 ==
LOC: ED 18:12 → ERH 22:19 → CCU 02-10 00:18 → 5RNO 02-12 17:36
PROVIDERS: ADMIT Internal Medicine; ATTEND Hospitalist
PROC: 05HM33Z Insertion of Infusion Device into Right Internal Jugular Vein, Percutaneous Approach (ICD-10-PCS; principal; 2017-02-10)
PROC: B543ZZA Ultrasonography of Right Jugular Veins, Guidance (ICD-10-PCS; 2017-02-10)
PROC: 3E033XZ Introduction of Vasopressor into Peripheral Vein, Percutaneous Approach (ICD-10-PCS; 2017-02-10)
DX: A41.9 Sepsis, unspecified organism (principal); B20 Human immunodeficiency virus [HIV] disease; G93.40 Encephalopathy, unspecified; R65.21 Severe sepsis with septic shock; N17.0 Acute kidney failure with tubular necrosis; J18.9 Pneumonia, unspecified organism; D69.6 Thrombocytopenia, unspecified; F11.20 Opioid dependence, uncomplicated; B96.4 Proteus (mirabilis) (morganii) as the cause of diseases classified elsewhere; R09.02 Hypoxemia; E87.6 Hypokalemia; R04.2 Hemoptysis; N30.00 Acute cystitis without hematuria; E11.9 Type 2 diabetes mellitus without complications; D63.8 Anemia in other chronic diseases classified elsewhere; E66.01 Morbid (severe) obesity due to excess calories; E83.42 Hypomagnesemia; F17.210 Nicotine dependence, cigarettes, uncomplicated; F41.9 Anxiety disorder, unspecified; D50.9 Iron deficiency anemia, unspecified; K59.00 Constipation, unspecified; G89.29 Other chronic pain; F31.9 Bipolar disorder, unspecified; I10 Essential (primary) hypertension; Z68.43 Body mass index [BMI] 50.0-59.9, adult; Z79.4 Long term (current) use of insulin

== ENCOUNTER 2017-08-21 20:45 | Emergency (ER) | payer OTHER ==
[2017-08-21 21:09] VITALS: BMI 47.7
--- NOTE | 2017-08-21 21:45 | ED PDOC ---
Arrival/HPI - General Chief Complaint: Wound Check Time Seen by Provider: 08/21/17 21:41 Historian: Patient - History of Present Illness Narrative History of Present Illness (Text): 08/21/17 21:42 Pt is a 37 yr old female with PMH of peripheral vascular disease and raised varicose veins who presents to the ED after shaving her legs at home. She noticed sudden bleeding of her right anterior zhou over a raised varicose vein and immediately came to the ED because she had a similar episode of bleeding after shaving her left leg and required sutures. Bleeding stopped before arrival to the ED. Denies altered sensation, GIB or active bleeding from another site, fever, or any other complaint. Time/Duration: Prior to Arrival Symptom Onset: Sudden Symptom Course: Unchanged Quality: Burning Severity Level: 3, Mild Activities at Onset: Light Context: Home Past Medical History - Provider Review Nursing Documentation Reviewed: Yes - Travel History Have you recently traveled outside [place] w/in the past 3 mons?: No - Infectious Disease Hx of Infectious Diseases: None - Tetanus Immunization Tetanus Immunization: Unknown - Reproductive Menopause: No - Cardiac Hx Cardiac Disorders: Yes Hx Hypertension: Yes - Pulmonary Hx Respiratory Disorders: Yes Hx Pneumonia: Yes - Neurological Hx Neurological Disorder: No - HEENT Other/Comment: corneal transplant - Renal Hx Renal Disorder: Yes Hx Kidney Stones: Yes Hx Renal Failure: Yes - Endocrine/Metabolic Hx Endocrine Disorders: No - Hematological/Oncological Hx Blood Disorders: Yes Hx Anemia: Yes - Integumentary Hx Dermatological Disorder: No - Musculoskeletal/Rheumatological Hx Musculoskeletal Disorders: No - Gastrointestinal Hx Gastrointestinal Disorders: No - Genitourinary/Gynecological Hx Genitourinary Disorders: No - Psychiatric Hx Psychophysiologic Disorder: Yes Hx Bipolar Disorder: Yes Hx Depression: Yes Hx Substance Use: Yes - Surgical History Hx Section: Yes - Anesthesia Hx Anesthesia: Yes Hx Anesthesia Reactions: No Hx Malignant Hyperthermia: No - Suicidal Assessment Feels Threatened In Home Enviroment: No Family/Social History - Physician Review Nursing Documentation Reviewed: Yes Family/Social History: Unknown Family HX Smoking Status: Heavy Smoker > 10 Cigarettes Daily Hx Alcohol Use: No Hx Substance Use: Yes Substance used: snorts heroin Hx Substance Use Treatment: Yes ([facility]) Allergies/Home Meds Allergies/Adverse Reactions: Allergies No Known Allergies Allergy (Verified 09/04/15 14:54) Home Medications: Home Meds Medication Instructions Recorded Confirmed Ritonavir [Norvir] 100 mg PO DAILY 10/07/14 08/21/17 Amitriptyline [Elavil] 150 mg PO HS 08/17/15 08/21/17 ALPRAZolam [Xanax] 1 mg PO TID 02/09/17 08/21/17 ALPRAZolam [Xanax] 1.5 mg PO HS 02/09/17 08/21/17 Amitriptyline [Elavil] 50 mg PO DAILY 02/09/17 08/21/17 Darunavir [Prezista] 800 mg PO DAILY 02/09/17 08/21/17 Dolutegravir Sodium [Tivicay] 50 mg PO DAILY 02/09/17 08/21/17 Emtricitabine/Tenofov Alafenam 1 each PO DAILY 02/09/17 08/21/17 [Descovy 200-25 mg Tablet] Methadone [Methadose] 80 mg PO DAILY 02/09/17 08/21/17 Review of Systems - Review of Systems Constitutional: Normal Eyes: Normal ENT: Normal Respiratory: Normal Cardiovascular: Normal Gastrointestinal: Normal Genitourinary Female: Normal Musculoskeletal: Normal Skin: Skin Lesions (right LE) Neurological: Normal Endocrine: Normal Hemo/Lymphatic: Normal Psychiatric: Normal Physical Exam Vital Signs Reviewed: Yes Vital Signs Temp Pulse Resp BP Pulse Ox 08/21/17 22:47 98.6 F 90 16 100/67 99 08/21/17 21:47 98.1 F 98 H 16 96/51 L 99 Temperature: Afebrile Blood Pressure: Normal Pulse: Regular Respiratory Rate: Normal Appearance: Positive for: Well-Appearing, Non-Toxic, Comfortable Pain Distress: None Mental Status: Positive for: Alert and Oriented X 3 - Systems Exam Head: Present: Atraumatic, Normocephalic Neck: Present: Normal Range of Motion Respiratory/Chest: Present: Clear to Auscultation, Good Air Exchange. No: Respiratory Distress, Accessory Muscle Use Cardiovascular: Present: Regular Rate and Rhythm, Normal S1, S2. No: Murmurs Abdomen: No: Tenderness, Distention, Peritoneal Signs Back: Present: Normal Inspection Upper Extremity: Present: Normal Inspection. No: Cyanosis, Edema Lower Extremity: Present: Normal Inspection. No: Edema Neurological: Present: GCS=15, CN II-XII Intact, Speech Normal Skin: Present: Warm, Dry, Normal Color, Abrasion (right distal and lateral LE; .3cm surface abrasion over varicose vein). No: Rashes Psychiatric: Present: Alert, Oriented x 3, Normal Insight, Normal Concentration Medical Decision Making ED Course and Treatment: Impression Pt is a 37 yr old female with PMH of peripheral vascular disease and raised varicose veins who presents to the ED after shaving her legs at home. On exam, there is a small .2 -.3cm surface abrasion over a raised varicose vein on the right distal and lateral aspect of the LE; pt has chronic varicosities and is morbidly obese Plan Clean and dress wound Assess and Dispo Progress Note wound cleaned with saline solution, assessed and covered with pressure dressing no active bleed appreciated advised pt on wound care Pt hemodynamically stable on d/c Disposition/Present on Arrival - Present on Arrival Any Indicators Present on Arrival: Yes History of DVT/PE: No History of Uncontrolled Diabetes: No Urinary Catheter: No History of Decub. Ulcer: No History Surgical Site Infection Following: None - Disposition Have Diagnosis and Disposition been Completed?: Yes Diagnosis: Varicose vein of leg, Abrasion of leg, right Disposition: HOME/ ROUTINE Disposition Time: 21:59 Patient Plan: Discharge Condition: GOOD Discharge Instructions (ExitCare): Varicose Veins and Other Vein Disease in the Legs, Skin Abrasions (DC) Additional Instructions: Diana thank you for letting us take care of you today. Your provider was WILLI Taylor. You were treated for Right leg skin abrasion and varicose vein. The emergency medical care you received today was directed at your acute symptoms. If you were prescribed any medication, please fill it and take as directed. It may take several days for your symptoms to resolve. Return to the Emergency Department if your symptoms worsen, do not improve, or if you have any other problems. Please follow up with your doctor in the next day or so If you experience any further bleeding from the site, elevate the leg and apply pressure until the bleeding stops Please contact your doctor or call one of the physicians/clinics you have been referred to that are listed on the Patient Visit Information form that is included in your discharge packet. Bring any paperwork you were given at discharge with you along with any medications you are taking to your follow up visit. Our treatment cannot replace ongoing medical care by a primary care provider (PCP) outside of the emergency department. Thank you for allowing the [facility] team to be part of your care today. Referrals: Ronald Shine MD [Primary Care Provider] - Follow up with primary Forms: [employer] ([place]), WORK NOTE
[2017-08-21 21:51] VITALS: RESP 16; O2SAT 99
[2017-08-21 22:49] VITALS: BP 100/67; PULSE 90; TEMP 98.6
== END 2017-08-21 22:47 | disposition home or self-care (01) ==
LOC: ED 20:45
DX: S80.811A Abrasion, right lower leg, initial encounter (principal); X58.XXXA Exposure to other specified factors, initial encounter; I83.91 Asymptomatic varicose veins of right lower extremity; I10 Essential (primary) hypertension; F17.210 Nicotine dependence, cigarettes, uncomplicated